=== PATIENT | male | born 1945 | race Caucasian/White ===

== ENCOUNTER 2018-10-18 02:39 | Observation (INO) | payer OTHER ==
[2018-10-18] MEDS ORDERED: METHYLPREDNISOLONE 125 MG INJ ONE ×2 (03:20→10:10)
[2018-10-18] MEDS ORDERED: IPRATROPIUM BROM 0.5MG/2.5ML ONE (03:20)
[2018-10-18] MEDS ORDERED: ALBUTEROL 2.5 MG/3 ML NEB SOL ONE (03:20)
[2018-10-18] MEDS ORDERED: NA CHLORIDE 0.9% 1,000 ML ONE (03:21)
[2018-10-18] MEDS ORDERED: HYDROCODONE/CHLORPHEN 5 ML/OSYR ONE (03:21)
[2018-10-18 03:51] LABS: Absolute Lymphocytes (CBC) 1.4 K/uL (0.7-4.9); Absolute Monocytes 1.2 K/uL (0.1-1.3); Absolute Neutrophil 5.4 K/uL (1.8-8.0); Basophils % 0.6 % (0-1.3); Hematocrit 34.1 % (39.6-49.0); Lymphocytes % 15.1 % (15.3-44.8); MCV 87.3 fL (80-100); MPV 7.3 fL (7.6-11.3); Monocytes % 12.4 % (3.3-12.3)
[2018-10-18 03:52] LABS: Arterial Blood Carboxyhemoglob 1.4 % (0-1.5); Blood Gas Oxyhemoglobin 96.6 % (94-97); Blood O2 Saturation 98.7 % (92-98.5)
[2018-10-18 04:09] LABS: Protime INR 1.1
[2018-10-18 04:49] LABS: ALT/SGPT 33 U/L (12-78); AST/SGOT 26 U/L (15-37); Albumin 3.5 g/dL (3.4-5.0); Alkaline Phosphatase 120 U/L (45-117); BUN Blood Urea Nitrogen 17 mg/dL (7-18); Bicarbonate 25 mmol/L (21-32); Bilirubin Direct 0.2 mg/dL (0-0.2); Bilirubin Total 0.5 mg/dL (0.2-1.0); Glucose Level 88 mg/dL (74-106); Magnesium 2.1 mg/dL (1.8-2.4); NT PRO-BNP 159 pg/mL (<125); Potassium 4.9 mmol/L (3.5-5.1); Protein, Total 7.5 g/dL (6.4-8.2); Sodium Level 128 mmol/L (136-145); Troponin (Emerg Dept Use Only) < 0.02 ng/mL (0.0-0.045)
--- NOTE | 2018-10-18 05:01 | EDPHYS ---
Physician Documentation [facility] Name: David Hernandez Age: 72 yrs Sex: Male : 1945 Arrival Date: 10/18/2018 Time: 02:43 Bed 26 Private MD: ED Physician Raphael Martin HPI: 10/18 03:04 This 72 yrs old Male presents to ER via EMS with unknown complaint. pkl 03:04 The patient has shortness of breath at rest. Onset: The symptoms/episode began/occurred pkl 2 week(s) ago, and became worse today. Associated signs and symptoms: Pertinent positives: productive cough. Historical: - Allergies: 03:03 No Known Allergies; rr5 - Home Meds: 03:03 albuterol sulfate 90 mcg/actuation Inhl HFAA 2 puffs every 6 hours [Active]; albuterol rr5 sulfate 0.83% Nebulizer HFAA 3 mL 4x daily prn [Active]; aspirin 81 mg Oral chew 1 tab once daily [Active]; atorvastatin 80 mg Oral tab [Active]; azelastine 13 7mcg/spray 200d nasal inh [Active]; budesonide 160/formoter 4.5mcg 120d inh [Active]; carvedilol 25 mg Oral tab 1 tab 2 times per day [Active]; cetirizine 10 mg oral tab 1 tab as needed [Active]; clopidogrel 75 mg Oral tab 1 tab once daily [Active]; docusate sodium 100 mg Oral cap 1 cap 2 times per day [Active]; [id number]/salmeterol 50 inh 1 puff 2x a day [Active]; guaifenesin 600 mg Oral Ta12 [Active]; latanoprost 0.005% oPH SOLN [Active]; levothyroxine 100 mcg tab 1 tab once daily [Active]; lisinopril 10 mg Oral tab 1 tab once daily [Active]; oxycodone 5 mg Oral cap 5 mg EVERY 4 HOURS NEEDED [Active]; roflumilast oral oral 500 mcg once daily [Active]; 03:06 tiotropium bromide inhalation inhalation 18 INH once daily [Active]; rr5 03:07 MUCOMYST [Active]; rr5 - PMHx: 03:06 Asthma; COPD; Hyperlipidemia; Hypertension; rr5 - PSHx: 03:06 Heart stents; Knee surgery; Hernia repair; rr5 - Immunization history:: Adult Immunizations up to date, Pneumococcal vaccine is up to date, Flu vaccine is up to date. - Social history:: Smoking status: Patient/guardian denies using tobacco, Patient/guardian denies using alcohol, street drugs. - Ebola Screening: : Patient negative for fever greater than or equal to 101.5 degrees Fahrenheit, and additional compatible Ebola Virus Disease symptoms Patient denies exposure to infectious person Patient denies travel to an Ebola-affected area in the 21 days before illness onset. ROS: 03:04 Eyes: Negative for injury, pain, redness, and discharge, ENT: Negative for injury, pkl pain, and discharge, Neck: Negative for injury, pain, and swelling, Cardiovascular: Negative for chest pain, palpitations, and edema. 03:04 Respiratory: Positive for cough, with clear sputum. 03:04 Abdomen/GI: Negative for abdominal pain, nausea, vomiting, and diarrhea. 03:04 Back: Negative for acute changes. 03:04 : Negative for urinary symptoms. 03:04 MS/extremity: Negative for acute changes. 03:04 Skin: Negative for rash. 03:04 Neuro: Negative for altered mental status, loss of consciousness. Exam: 03:04 Head/Face: Normocephalic, atraumatic. Eyes: Pupils equal round and reactive to light, pkl extra-ocular motions intact. Lids and lashes normal. Conjunctiva and sclera are non-icteric and not injected. Cornea within normal limits. Periorbital areas with no swelling, redness, or edema. ENT: Nares patent. No nasal discharge, no septal abnormalities noted. Tympanic membranes are normal and external auditory canals are clear. Oropharynx with no redness, swelling, or masses, exudates, or evidence of obstruction, uvula midline. Mucous membranes moist. Neck: Trachea midline, no thyromegaly or masses palpated, and no cervical lymphadenopathy. Supple, full range of motion without nuchal rigidity, or vertebral point tenderness. No Meningismus. Chest/axilla: Normal chest wall appearance and motion. Nontender with no deformity. No lesions are appreciated. Cardiovascular: Regular rate and rhythm with a normal S1 and S2. No gallops, murmurs, or rubs. Normal PMI, no JVD. No pulse deficits. 03:04 Respiratory: the patient does not display signs of respiratory distress, Respirations: labored breathing, that is mild, Breath sounds: bronchial sounds, that are moderate, are scattered. 03:04 Abdomen/GI: Bowel sounds: normal, Palpation: abdomen is soft and non-tender, in all quadrants. 03:04 Back: Exam negative for acute changes. 03:04 : Exam negative for acute changes. 03:04 Musculoskeletal/extremity: Exam is negative for acute changes. 03:04 Skin: Exam negative for rash. 03:04 Neuro: Orientation: is normal, Mentation: is normal, Cranial nerves: grossly normal, Motor: is normal. Vital Signs: 03:00 BP 119 / 76; Pulse 86; Resp 23; Temp 97.9; Pulse Ox 97% on R/A; Weight 99.79 kg; Height rr5 5 ft. 8 in. (172.72 cm); Pain 0/10; 05:00 BP 141 / 73; Pulse 74; Resp 20; Pulse Ox 96% on R/A; rr5 06:00 BP 125 / 89; Pulse 71; Resp 22; Pulse Ox 96% on 2 lpm NC; rr5 03:00 Body Mass Index 33.45 (99.79 kg, 172.72 cm) rr5 MDM: 02:44 Patient medically screened. pkl 04:58 Data reviewed: vital signs, nurses notes, lab test result(s), EKG, radiologic studies, pkl plain films. 10/18 03:02 Order name: Basic Metabolic Panel; Complete Time: 05:00 [facility] 10/18 03:02 Order name: CBC with Diff; Complete Time: 04:38 [facility] 10/18 03:02 Order name: LFT's; Complete Time: 05:00 [facility] 10/18 03:02 Order name: Magnesium; Complete Time: 05:00 [facility] 10/18 03:02 Order name: NT PRO-BNP; Complete Time: 05:00 [facility] 10/18 03:02 Order name: PT-INR; Complete Time: 04:38 [facility] 10/18 03:02 Order name: Troponin (emerg Dept Use Only); Complete Time: 05:00 [facility] 10/18 03:02 Order name: XRAY Chest (1 view) [facility] 10/18 03:02 Order name: ABG; Complete Time: 04:38 [facility] 10/18 03:27 Order name: D-Dimer; Complete Time: 04:38 EDMS 10/18 03:02 Order name: EKG; Complete Time: 03:08 pkl 10/18 03:02 Order name: Cardiac monitoring; Complete Time: 03:28 pkl 10/18 03:02 Order name: EKG - Nurse/Tech; Complete Time: 04:23 pkl 10/18 03:02 Order name: IV Saline Lock; Complete Time: 03:29 pkl 10/18 03:02 Order name: Labs collected and sent; Complete Time: 03: pkl 10/18 03:02 Order name: O2 Per Protocol; Complete Time: 03: pkl 10/18 03:02 Order name: O2 Sat Monitoring; Complete Time: : pkl Administered Medications: 03:15 Drug: Tussionex Pennkinetic ER 5 ml Route: PO; tl2 05:10 Follow up: Response: Marked relief of symptoms; Wheezing diminished rr5 03:15 Drug: Albuterol - atroVENT (3:1) (2.5 mg - 0.5 mg) 3 ml Route: Nebulizer; tl2 05:11 Follow up: Response: Wheezing diminished rr5 03:16 Drug: NS 0.9% 1000 ml Route: IV; Rate: 125 ml/hr; Site: right antecubital; tl2 07:13 Follow up: IV Status: Infusion continued upon admission rr5 03:16 Drug: SOLU-Medrol 125 mg Route: IVP; Site: right antecubital; tl2 05:10 Follow up: Response: Marked relief of symptoms rr5 05:10 Drug: Lovenox 90 mg Route: Sub-Q; Site: right lower abdomen; rr5 07:12 Follow up: Response: No adverse reaction rr5 Disposition: 10/18/18 05:00 Hospitalization ordered by Steve Panda for Observation. Preliminary diagnosis is Acute dyspnea. COPD exacerbation. R/O Pulmonary embolism. - Bed requested for Telemetry/MedSurg (observation). - Status is Observation. aj1 - Condition is Stable. - Problem is new. - Symptoms are unchanged. UTI on Admission? No Signatures: Dispatcher [employer] EDMS Orin Peter RN RN aj1 Mercedes Guerrero RN RN Kenna Tena RN RN dw Raphael Martin MD MD pkTiara Rivera, RN RN tl2 Maxwell Oscar, RN RN rr5 Corrections: (The following items were deleted from the chart) 03: 03:08 D-DIMER+COAG.LAB.BRZ ordered. EDMS EDMS 05:26 05:00 Hospitalization Ordered by Steve Panda MD for Observation. Preliminary mw diagnosis is Acute dyspnea. COPD exacerbation. R/O Pulmonary embolism. Bed requested for Telemetry/MedSurg (observation). Status is Observation. Condition is Stable. Problem is new. Symptoms are unchanged. UTI on Admission? No. pkl 09:58 05:26 10/18/2018 05:00 Hospitalization Ordered by tSeve Panda MD for Observation. dw Preliminary diagnosis is Acute dyspnea. COPD exacerbation. R/O Pulmonary embolism. Bed requested for [facility] ER HOLD. Status is Observation. Condition is Stable. Problem is new. Symptoms are unchanged. UTI on Admission? No. mw 11:38 09:58 10/18/2018 05:00 Hospitalization Ordered by Steve Panda MD for Observation. aj1 Preliminary diagnosis is Acute dyspnea. COPD exacerbation. R/O Pulmonary embolism. Bed requested for Telemetry/MedSurg (observation). Status is Observation. Condition is Stable. Problem is new. Symptoms are unchanged. UTI on Admission? No. dw
--- NOTE | 2018-10-18 05:01 | ER ---
Nurse's Notes [facility] Name: David Hernandez Age: 72 yrs Sex: Male : 1945 Arrival Date: 10/18/2018 Time: 02:43 Bed 26 Private MD: Diagnosis: Acute dyspnea. COPD exacerbation. R/O Pulmonary embolism Presentation: 10/18 02:40 Presenting complaint: EMS states: consistent coughing spasm since 10/06/18 white thick rr5 sputum with SOB and get worst today. first dose nebulization at 2200 10/17/18, second dose given by EMS 0216H atrovent and albuterol. 02:40 Transition of care: patient was not received from another setting of care. Onset of rr5 symptoms was October 06, 2018. Risk Assessment: Do you want to hurt yourself or someone else? Patient reports no desire to harm self or others. Initial Sepsis Screen: Does the patient meet any 2 criteria? No. Patient's initial sepsis screen is negative. Does the patient have a suspected source of infection? No. Patient's initial sepsis screen is negative. Care prior to arrival: Medication(s) given: Albuterol Neb x 1, Atrovent Neb. 02:40 Method Of Arrival: EMS: [facility] rr5 02:40 Acuity: EROS 3 rr5 Historical: - Allergies: 03:03 No Known Allergies; rr5 - Home Meds: 03:03 albuterol sulfate 90 mcg/actuation Inhl HFAA 2 puffs every 6 hours [Active]; albuterol rr5 sulfate 0.83% Nebulizer HFAA 3 mL 4x daily prn [Active]; aspirin 81 mg Oral chew 1 tab once daily [Active]; atorvastatin 80 mg Oral tab [Active]; azelastine 13 7mcg/spray 200d nasal inh [Active]; budesonide 160/formoter 4.5mcg 120d inh [Active]; carvedilol 25 mg Oral tab 1 tab 2 times per day [Active]; cetirizine 10 mg oral tab 1 tab as needed [Active]; clopidogrel 75 mg Oral tab 1 tab once daily [Active]; docusate sodium 100 mg Oral cap 1 cap 2 times per day [Active]; /salmeterol 50 inh 1 puff 2x a day [Active]; guaifenesin 600 mg Oral Ta12 [Active]; latanoprost 0.005% oPH SOLN [Active]; levothyroxine 100 mcg tab 1 tab once daily [Active]; lisinopril 10 mg Oral tab 1 tab once daily [Active]; oxycodone 5 mg Oral cap 5 mg EVERY 4 HOURS NEEDED [Active]; roflumilast oral oral 500 mcg once daily [Active]; 03:06 tiotropium bromide inhalation inhalation 18 INH once daily [Active]; rr5 03:07 MUCOMYST [Active]; rr5 - PMHx: 03:06 Asthma; COPD; Hyperlipidemia; Hypertension; rr5 - PSHx: 03:06 Heart stents; Knee surgery; Hernia repair; rr5 - Immunization history:: Adult Immunizations up to date, Pneumococcal vaccine is up to date, Flu vaccine is up to date. - Social history:: Smoking status: Patient/guardian denies using tobacco, Patient/guardian denies using alcohol, street drugs. - Ebola Screening: : Patient negative for fever greater than or equal to 101.5 degrees Fahrenheit, and additional compatible Ebola Virus Disease symptoms Patient denies exposure to infectious person Patient denies travel to an Ebola-affected area in the 21 days before illness onset. Screenin:25 Abuse screen: Denies threats or abuse. Denies injuries from another. Nutritional rr5 screening: No deficits noted. Nutritional screening:. Tuberculosis screening: No symptoms or risk factors identified. Fall Risk None identified. Assessment: 03:30 General: Appears in no apparent distress. uncomfortable, Behavior is calm, cooperative, rr5 appropriate for age. Pain: Denies pain. Neuro: Level of Consciousness is awake, alert, obeys commands, Oriented to person, place, time, situation. Cardiovascular: Denies chest pain, Capillary refill < 3 seconds Patient's skin is warm and dry. Respiratory: Airway is patent Respiratory effort is even, Respiratory pattern is symmetrical, tachypnea Breath sounds with wheezes bilaterally. GI: No signs and/or symptoms were reported involving the gastrointestinal system. : No signs and/or symptoms were reported regarding the genitourinary system. EENT: No signs and/or symptoms were reported regarding the EENT system. Derm: No signs and/or symptoms reported regarding the dermatologic system. Musculoskeletal: No signs and/or symptoms reported regarding the musculoskeletal system. 04:26 Reassessment: Patient appears in no apparent distress at this time. Patient states rr5 feeling better. Patient states symptoms have improved. 05:03 Reassessment: Patient appears in no apparent distress at this time. audible wheezes. rr5 patient verbalized he feels better. Patient states feeling better. Patient states symptoms have improved. Vital Signs: 03:00 BP 119 / 76; Pulse 86; Resp 23; Temp 97.9; Pulse Ox 97% on R/A; Weight 99.79 kg; Height rr5 5 ft. 8 in. (172.72 cm); Pain 0/10; 05:00 BP 141 / 73; Pulse 74; Resp 20; Pulse Ox 96% on R/A; rr5 06:00 BP 125 / 89; Pulse 71; Resp 22; Pulse Ox 96% on 2 lpm NC; rr5 03:00 Body Mass Index 33.45 (99.79 kg, 172.72 cm) rr5 ED Course: 02:43 Patient arrived in ED. ds1 02:43 Raphael Martin MD is Attending Physician. pkl 02:44 Maxwell Oscar RN is Primary Nurse. rr5 02:48 Inserted saline lock: 20 gauge in right antecubital area, using aseptic technique. tl2 Blood collected. 02:49 Triage completed. rr5 03:22 X-ray completed. Portable x-ray completed in exam room. Patient tolerated procedure kw well. 03:23 XRAY Chest (1 view) In Process Unspecified. EDMS 03:30 Arm band placed on left wrist. rr5 03:30 Patient has correct armband on for positive identification. Bed in low position. Call rr5 light in reach. Side rails up X 1. 04:12 Notified ED physician of a critical lab result(s). D-Dimer-6,[id number]. lp1 04:59 Steve Panda MD is Hospitalizing Provider. pkl 06:13 No provider procedures requiring assistance completed. Patient admitted, IV remains in rr5 place. intact. Administered Medications: 03:15 Drug: Tussionex Pennkinetic ER 5 ml Route: PO; tl2 05:10 Follow up: Response: Marked relief of symptoms; Wheezing diminished rr5 03:15 Drug: Albuterol - atroVENT (3:1) (2.5 mg - 0.5 mg) 3 ml Route: Nebulizer; tl2 05:11 Follow up: Response: Wheezing diminished rr5 03:16 Drug: NS 0.9% 1000 ml Route: IV; Rate: 125 ml/hr; Site: right antecubital; tl2 07:13 Follow up: IV Status: Infusion continued upon admission rr5 03:16 Drug: SOLU-Medrol 125 mg Route: IVP; Site: right antecubital; tl2 05:10 Follow up: Response: Marked relief of symptoms rr5 05:10 Drug: Lovenox 90 mg Route: Sub-Q; Site: right lower abdomen; rr5 07:12 Follow up: Response: No adverse reaction rr5 Outcome: 05:00 Decision to Hospitalize by Provider. pkl 06:14 Admitted to ER Hold. Please see [facility] for further documentation. darrion 06:14 Condition: stable 06:14 Instructed on the need for admit. 11:38 Patient left the ED. aj1 Signatures: Dispatcher [employer] EDOrin Lopez RN RN aj1 Raphael Martin MD MD pkl Soila Nleson ds1 Shahana Valadez RN RN bb Jeanette Enriquez Laura, RN RN lp1 Tiara Stewart RN RN tl2 Maxwell Oscar RN RN rr5
[2018-10-18] MEDS ORDERED: ENOXAPARIN 100 MG/ML SYR SQ ONE (05:10)
[2018-10-18] MEDS ORDERED: METHYLPREDNISOLONE 40 MG INJ IV ONE (06:24)
[2018-10-18] MEDS: LEVOTHYROXINE SOD 0.1 MG TAB PO SCH (06:30)
[2018-10-18] MEDS ORDERED: ALBUTEROL 2.5 MG/3 ML NEB SOL NEB PRN (07:26)
--- NOTE | 2018-10-18 07:32 | EKG ---
Test Date: 2018-10-18 Test Time: 03:58:13 Equipment Maintenance Superintendent: RR MEASUREMENT RESULTS: Intervals: Rate: 75 WI: 156 QRSD: 86 QT: 410 QTc: 457 [place]: P: 59 WI: 156 QRS: 66 T: 53 INTERPRETIVE STATEMENTS: Normal sinus rhythm Normal ECG Compared to ECG 03/12/2017 22:23:01 No significant changes Electronically Signed On 10-18-18 07:31:53 HAM ROLLING MACHINE OPERATOR by Manuel Thompson
[2018-10-18] MEDS ORDERED: ALBUTEROL 2.5 MG/3 ML NEB SOL NEB SCH (08:00)
[2018-10-18] MEDS: IPRATROPIUM BROM 0.5MG/2.5ML NEB SCH ×3 (08:00→20:21)
--- NOTE | 2018-10-18 08:54 | RAD REPORT ---
EXAM DESCRIPTION: RAD - Chest Single View - 10/18/2018 3:24 am CLINICAL HISTORY: Cough;COPD Chest pain. COMPARISON: Chest Pa And Lat (2 Views) dated 03/15/2017; Chest Single View dated 03/12/2017; Chest Sin gle View dated 01/09/2017; CHEST PA AND LAT 2 VIEW dated 12/31/2015 FINDINGS: Portable technique limits examination quality. The lungs are grossly clear. The heart is normal in size. No displaced fractures. IMPRESSION: No acute intrathoracic process suspected.
[2018-10-18] MEDS: CLOPIDOGREL 75 MG TABLET PO SCH (09:00)
[2018-10-18] MEDS: ASPIRIN EC 81 MG TAB PO SCH (09:00)
[2018-10-18] MEDS: TIOTROPIUM 5 SPRAYS/INHALER IH SCH (09:00)
[2018-10-18] MEDS: LISINOPRIL 10 MG TAB PO SCH (09:00)
[2018-10-18] MEDS: CARVEDILOL 12.5 MG TAB PO SCH ×2 (09:00→20:50)
[2018-10-18] MEDS: TERBINAFINE HCL 250 MG TAB PO SCH (09:00)
[2018-10-18] MEDS: ATORVASTATIN 40 MG TAB PO SCH (09:00)
[2018-10-18] MEDS: ROFLUMILAST 500 MCG TABLET PO SCH (09:00)
--- NOTE | 2018-10-18 09:16 | P.HP ---
Certification for Inpatient Patient admitted to: Inpatient With expected LOS: >2 Midnights Patient will require the following post-hospital care: None Practitioner: I am a practitioner with admitting privileges, knowledge of patient current condition, hospital course, and medical plan of care. Services: Services provided to patient in accordance with Admission requirements found in Title 42 Section 412.3 of the Code of Federal Regulations Patient History Date of Service: 10/18/18 Reason for admission: Shortness of breath History of Present Illness: Patient is a 9-year-old gentleman came to the hospital with difficulty breathing. Patient was hypoxic and could not catch his breath. Whenever he would ambulate even a few steps he would lose his breath. He decided to come into the hospital for further evaluation. In the emergency room patient had lab testing and x-rays. Patient had chronic lung changes on the x-ray. He most likely has an acute COPD exacerbation. Patient's D-dimer was also significantly elevated. Patient recently had knee surgery. Concern for pulmonary embolism. Decision was made at that time to go ahead and admit the patient to the hospital. Will go ahead and schedule CT with PE protocol or V/Q scan for the morning Allergies No Known Allergies Allergy (Verified 03/13/17 02:37) Home Medications: Aspirin [Aspirin EC 81 MG] 81 mg PO DAILY 03/13/17 Atorvastatin Calcium 80 mg PO DAILY 03/13/17 Azelastine HCl [Astepro] 1 spray NS BID 03/13/17 Budesonide/Formoterol Fumarate [Symbicort 160-4.5 Mcg Inhaler] 1 puff IH BID Carvedilol 12.5 mg PO BID 03/13/17 Cetirizine HCl [Zyrtec] 10 mg PO BEDTIME 03/13/17 Clopidogrel Bisulfate [Plavix] 75 mg PO DAILY 03/13/17 Fluticasone Propionate [Flonase Allergy Relief] 1 spray NS BID 03/13/17 Latanoprost Ophth [Xalatan 0.005%*] 1 gtt EACH EYE BEDTIME 03/13/17 Levothyroxine [Synthroid*] 100 mcg PO DAILY 03/13/17 Lisinopril 5 mg PO DAILY 03/13/17 Roflumilast [Daliresp*] 500 mcg PO DAILY 03/13/17 Tiotropium [place] [Spiriva] 1 spray IH DAILY 03/13/17 Albuterol Sulfate [Albuterol Sulfate 0.083% Neb Soln] 2.5 mg IH QID PRN Albuterol Sulfate [Proair Respiclick] 90 mcg IH Q6HP PRN 10/18/18 Docusate Sodium 100 mg PO BID 10/18/18 Fluticasone/Salmeterol [Advair 250-50 Diskus] 1 each IH BID 10/18/18 Oxycodone HCl [Roxicodone] 5 mg PO Q4HP PRN 10/18/18 - Past Medical/Surgical History Diabetic: No -: COPD -: Asthma -: HTN -: Hyperlipidemia -: Hernia repair -: corporal tunnel -: eric cataract surgery -: Stents - Family History Mother Medical History: Lung disease, Cancer Notes: skin cancer and respiratory issues (was a long time smoker per pt) Sister Medical History: Cancer Notes: melanoma - Social History Alcohol use: No CD- Drugs: No Caffeine use: Yes Review of Systems 10-point ROS is otherwise unremarkable Physical Examination - Vital Signs Temperature: 98 F Blood Pressure: 144/103 Pulse: 96 Respirations: 18 Pulse Ox (%): 97 - Physical Exam General: Alert, In no apparent distress, Oriented x3 HEENT: Atraumatic, PERRLA, Mucous membr. moist/pink, EOMI, Sclerae nonicteric Neck: Supple, 2+ carotid pulse no bruit, No LAD, Without JVD or thyroid abnormality Respiratory: Expiratory wheezes Cardiovascular: Regular rate/rhythm, Normal S1 S2, No murmurs Gastrointestinal: Normal bowel sounds, Soft and benign, Non-distended, No tenderness Musculoskeletal: No clubbing, No swelling, No tenderness Integumentary: No rashes Neurological: Normal gait, Normal speech, Normal strength at 5/5 x4 extr, Normal tone, Sensation intact, Cranial nerves 3-12 intact, Normal affect Lymphatics: No axilla or inguinal lymphadenopathy - Studies Laboratory Data (last 24 hrs) 10/18/18 03:10: PT 13.0 H, INR 1.10 10/18/18 03:10: WBC 9.4, Hgb 12.1 L, Hct 34.1 L, Plt Count 735 H 10/18/18 03:10: Sodium 128 L, Potassium 4.9, BUN 17, Creatinine 1.80 H, Glucose 88, Magnesium 2.1, Total Bilirubin 0.5, AST 26, ALT 33, Alkaline Phosphatase 120 H Assessment & Plan - Problems (Diagnosis) (1) COPD exacerbation Onset Date: 01/16/15 Current Visit: No Status: Acute (2) Elevated d-dimer Current Visit: Yes Status: Acute (3) Hypoxia Onset Date: 12/11/15 Current Visit: No Status: Acute (4) Hypertension Current Visit: No Status: Chronic - Plan Plan: 1. Continue with albuterol and Atrovent nebs 2. Continue with IV steroids 3. Antibiotics 4. CT/PE prototcol 5. Room air O2 sats 6. Repeat chest x-ray in the morning 7. GI and DVT prophylaxis Discharge Plan: Home Plan to discharge in: Greater than 2 days - Advance Directives Does patient have a Living Will: No Does patient have a Durable POA for Healthcare: Yes - Code Status/Comfort Care Code Status Assessed: Yes Code Status: Full Code Critical Care: No Time Spent Managing PTS Care (In Minutes): 50
[2018-10-18] MEDS ORDERED: ALBUTEROL 2.5 MG/3 ML NEB SOL IH PRN (09:18)
[2018-10-18] MEDS ORDERED: LISINOPRIL 10 MG TAB ONE (10:11)
[2018-10-18] MEDS ORDERED: CARVEDILOL 6.25 MG TAB ONE (10:11)
[2018-10-18] MEDS ORDERED: CLOPIDOGREL 75 MG TABLET ONE (10:11)
[2018-10-18] MEDS ORDERED: ASPIRIN EC 81 MG TAB PO ONE (10:11)
[2018-10-18] MEDS ORDERED: ENOXAPARIN 40 MG/0.4 ML SQ ONE (10:11)
[2018-10-18 12:21] VITALS: BMI 34.4
[2018-10-18 12:38] LABS: Absolute Lymphocytes (CBC) 1.1 K/uL (0.7-4.9); Absolute Monocytes 0.1 K/uL (0.1-1.3); Absolute Neutrophil 5.9 K/uL (1.8-8.0); Basophils % 0.4 % (0-1.3); Eosinophils % 0.2 % (0-4.4); Lymphocytes % 14.9 % (15.3-44.8); MCH 29.4 pg (27.0-35.0); MCV 87.2 fL (80-100); MPV 7.3 fL (7.6-11.3); Monocytes % 1.6 % (3.3-12.3); RBC Red Blood Cell Count 4.24 M/uL (4.33-5.43)
[2018-10-18] MEDS: METHYLPREDNISOLONE 125 MG INJ IV SCH ×2 (12:47→17:43)
[2018-10-18 13:10] LABS: Magnesium 2.3 mg/dL (1.8-2.4); Phosphorus 3.8 mg/dL (2.5-4.9); Potassium 5.2 mmol/L (3.5-5.1)
[2018-10-18] MEDS: ARFORMOTEROL TARTRATE 15 MCG/2 ML VIAL.NEB NEB SCH ×2 (13:13→20:21)
[2018-10-18 14:06] LABS: Blood Morphology Comment NOT SEEN (NOT SEEN); Platelet Estimate INCR; Urine White Blood Cell Casts OK
[2018-10-18] MEDS: OXYCODONE HCL 5 MG TAB PO PRN (16:15)
[2018-10-18] MEDS: ENOXAPARIN 40 MG/0.4 ML SQ SCH (17:43)
[2018-10-18] MEDS: BENZONATATE 100 MG CAP PO PRN (17:43)
[2018-10-18] MEDS: NA CHLORIDE 0.9% 1,000 ML IV SCH (20:47)
[2018-10-18] MEDS: DULERA 100/5 (MOMETASONE/FORMOTEROL) INHALER IH SCH (20:47)
[2018-10-18] MEDS: AZELASTINE NASAL SPRAY 30 ML NAS SCH (20:47)
[2018-10-18] MEDS: predniSONE 20 MG TAB PO SCH (20:49)
[2018-10-18] MEDS: DOCUSATE NA 100 MG CAP PO SCH (20:49)
[2018-10-18] MEDS ORDERED: MONTELUKAST 10 MG TAB PO SCH (21:00)
[2018-10-18] MEDS ORDERED: BENZONATATE 100 MG CAP PO SCH (21:00)
[2018-10-18] MEDS ORDERED: CETIRIZINE HCL 5 MG TABLET PO SCH (21:00)
[2018-10-18 21:52] VITALS: O2SAT 98
[2018-10-19] MEDS: OXYCODONE HCL 5 MG TAB PO PRN (02:04)
[2018-10-19] MEDS: BENZONATATE 100 MG CAP PO PRN (02:05)
[2018-10-19] MEDS: IPRATROPIUM BROM 0.5MG/2.5ML NEB SCH ×3 (02:08→13:10)
[2018-10-19] MEDS: LEVOTHYROXINE SOD 0.1 MG TAB PO SCH (05:27)
[2018-10-19 05:38] LABS: Absolute Lymphocytes (CBC) 1.8 K/uL (0.7-4.9); Absolute Monocytes 0.7 K/uL (0.1-1.3); Absolute Neutrophil 10.5 K/uL (1.8-8.0); Basophils % 0.2 % (0-1.3); Eosinophils % 0.1 % (0-4.4); Hematocrit 30.3 % (39.6-49.0); Lymphocytes % 13.9 % (15.3-44.8); MCH 29.8 pg (27.0-35.0); MCV 87.4 fL (80-100); MPV 7.1 fL (7.6-11.3); Monocytes % 5.7 % (3.3-12.3); RBC Red Blood Cell Count 3.47 M/uL (4.33-5.43)
[2018-10-19 06:00] LABS: Magnesium 2.1 mg/dL (1.8-2.4); Potassium 4.8 mmol/L (3.5-5.1)
[2018-10-19] MEDS: ARFORMOTEROL TARTRATE 15 MCG/2 ML VIAL.NEB NEB SCH (07:35)
[2018-10-19] MEDS: DOCUSATE NA 100 MG CAP PO SCH (09:00)
--- NOTE | 2018-10-19 09:02 | RAD REPORT ---
EXAM DESCRIPTION: NM - Vent Perfusion VQ Scan - 10/19/2018 7:30 am CLINICAL HISTORY: Shortness of breath elevated D-dimer COMPARISON: October 18 chest x-ray TECHNIQUE: 20.1 Mci [id number] was administered by inhalation. First breath, equilibrium, and washout images obtained 7.5 millicuries Technetium-99 MAA was administered intravenously. Anterior, posterior, lateral and o blique views of the lungs were taken. FINDINGS: The lungs demonstrate relatively homogeneous radiotracer activity on ventilation and perfu edvin sequences. No mismatched segmental or lobar perfusion defects are seen. IMPRESSION: No evidence of a pulmonary embolus
[2018-10-19] MEDS: TIOTROPIUM 5 SPRAYS/INHALER IH SCH (10:07)
[2018-10-19] MEDS: AZELASTINE NASAL SPRAY 30 ML NAS SCH (10:07)
[2018-10-19] MEDS: DULERA 100/5 (MOMETASONE/FORMOTEROL) INHALER IH SCH (10:07)
[2018-10-19] MEDS: NA CHLORIDE 0.9% 1,000 ML IV SCH (10:09)
[2018-10-19] MEDS: TERBINAFINE HCL 250 MG TAB PO SCH (10:12)
[2018-10-19] MEDS: predniSONE 20 MG TAB PO SCH (10:12)
[2018-10-19] MEDS: LISINOPRIL 10 MG TAB PO SCH (10:13)
[2018-10-19] MEDS: CARVEDILOL 12.5 MG TAB PO SCH (10:13)
[2018-10-19] MEDS: CLOPIDOGREL 75 MG TABLET PO SCH (10:13)
[2018-10-19] MEDS: ASPIRIN EC 81 MG TAB PO SCH (10:13)
[2018-10-19] MEDS: ROFLUMILAST 500 MCG TABLET PO SCH (10:14)
[2018-10-19] MEDS: ATORVASTATIN 40 MG TAB PO SCH (10:17)
--- NOTE | 2018-10-19 11:32 | RAD REPORT ---
EXAM DESCRIPTION: US - Extrem Venous W Compress Jamal - 10/19/2018 11:14 am CLINICAL HISTORY: Left leg pain and swelling, left total knee surgery September 24 COMPARISON: None. TECHNIQUE: Real-time sonographic evaluation of the left lower extremity deep venous system was perfo rmed. FINDINGS: Normal compressibility, flow augmentation, phasic flow and spontaneous flow are identified in the left lower extremity common femoral, superficial femoral, popliteal and posterior tibial vein s. No intraluminal filling defects seen. Large complex mostly hypoechoic collection is present surrounding the knee. Margins are difficult to fully defined by CT imaging. This is most likely old hematoma related to the recent knee surgery. No specific finding to elevate likelihood of abscess. IMPRESSION: No DVT in the left lower extremity. Large complex collection around the knee is probably old hematoma. It is difficult to fully incorpora te this finding on to sonographic imaging. Followup CT imaging could be performed if there are clinic al or laboratory findings that might suggest soft tissue infection.
--- NOTE | 2018-10-19 11:41 | RAD REPORT ---
EXAM DESCRIPTION: RAD - Chest Pa And Lat (2 Views) - 10/19/2018 11:24 am CLINICAL HISTORY: COPD, shortness of breath COMPARISON: October 18 ; February 2017 TECHNIQUE: PA and lateral views of the chest were obtained. FINDINGS: The lungs are fibrotic. No peripheral mass or consolidation. Lung markings are similar or to the October 18 study. Trachea is midline. Heart size is normal and central vasculature is within normal limits. No pleural effusion or pneumothorax seen. No acute bony finding noted. No aortic a bnormality. IMPRESSION: Chronic interstitial lung disease similar to comparison. No new or progressive finding.
[2018-10-19 15:16] VITALS: BP 131/76; TEMP 98.8
--- NOTE | 2018-10-19 15:48 | P.DS ---
Admission Date: 10/18/18 Discharge Date: 10/19/18 Primary Care Provider: [facility] Disposition: ROUTINE DISCHARGE Discharge Condition: GOOD Reason for Admission: Shortness of breath Consultations: None Procedures: Chest x-ray: COMPARISON: October 18 ; February 2017 TECHNIQUE: PA and lateral views of the chest were obtained. FINDINGS: The lungs are fibrotic. No peripheral mass or consolidation. Lung markings are similar or to the October 18 study. Trachea is midline. Heart size is normal and central vasculature is within normal limits. No pleural effusion or pneumothorax seen. No acute bony finding noted. No aortic abnormality. IMPRESSION: Chronic interstitial lung disease similar to comparison. No new or progressive finding Venous Doppler lower extremity: COMPARISON: None. TECHNIQUE: Real-time sonographic evaluation of the left lower extremity deep venous system was performed. FINDINGS: Normal compressibility, flow augmentation, phasic flow and spontaneous flow are identified in the left lower extremity common femoral, superficial femoral, popliteal and posterior tibial veins. No intraluminal filling defects seen. Large complex mostly hypoechoic collection is present surrounding the knee. Margins are difficult to fully defined by CT imaging. This is most likely old hematoma related to the recent knee surgery. No specific finding to elevate likelihood of abscess. IMPRESSION: No DVT in the left lower extremity. Large complex collection around the knee is probably old hematoma. Patient with history of left knee replacement. ADDENDUM The right common femoral, superficial femoral, popliteal and posterior tibial veins are clear of thrombus. There is good compression and augmentation. No right-side deep venous thrombosis. V/Q scan: COMPARISON: October 18 chest x-ray TECHNIQUE: 20.1 Mci [id number] was administered by inhalation. First breath, equilibrium, and washout images obtained 7.5 millicuries Technetium-99 MAA was administered intravenously. Anterior, posterior, lateral and oblique views of the lungs were taken. FINDINGS: The lungs demonstrate relatively homogeneous radiotracer activity on ventilation and perfusion sequences. No mismatched segmental or lobar perfusion defects are seen. IMPRESSION: No evidence of a pulmonary embolus Echocardiogram: Done, results pending at discharge. Medical problem list: Dyspnea secondary to COPD exacerbation complicated with acute sinusitis likely with underlying obstructive sleep apnea currently with home oxygen, COPD likely advanced Hypertension Hyperlipidemia Hypothyroidism CAD GERD Renal insufficiency likely underlying stage II chronic renal disease Chronic pain Obesity, BMI 34 Brief History of Present Illness: 72-year-old male presented emergency room with increasing shortness of breath and cough. Patient seen and evaluated the emergency room. Patient with underlying chronic COPD. He uses home oxygen as needed. Patient with multiple medications. Patient found to have COPD exacerbation. Patient admitted for further treatment. Hospital Course: Patient presented with dyspnea secondary to COPD exacerbation complicated with acute sinusitis likely with underlying obstructive sleep apnea. Patient currently uses home oxygen as needed. Patient with advanced COPD. Patient did well in the course of his stay. Patient had V/Q scan which showed no pulmonary embolism. Chest x-ray showed no pneumonia. Echocardiogram done. Results pending at discharge. At discharge she is without any significant shortness of breath. Patient treated for sinusitis and COPD exacerbation. Patient has done well. Patient without the need for oxygen at discharge. Patient ambulating well. At discharge patient will continue with Augmentin 500 mg 1 pill twice daily for 7 days for his sinusitis. Patient will also continue with prednisone 20 mg 1 pill twice daily for 5 days then 1 pill once daily for 5 days for his COPD exacerbation. Patient will continue with his COPD medication including- albuterol nebs 1 unit dose 4 times a day as needed for shortness of breath, Symbicort 160 mcg 2 puffs twice daily, Spiriva 18 mcg 1 puff daily, and Daliresp 5 mcg one pill daily. Recommendations for the patient follow up with pulmonology as an outpatient to further monitor his COPD and continue his care. Patient may continue with home oxygen to maintain sats above 90%. Patient will be given a limited supply of cough medication-Tessalon 100 mg 1 pill 3 times a day as needed for cough. Recommendation is for the patient to follow up with ENT to further evaluate his sinusitis. Patient may continue with Flonase 1 spray per nostril twice daily, Zyrtec 10 mg daily. Astepro has been discontinued. Patient likely with underlying obstructive sleep apnea. Recommendation is for the patient to have a sleep study done as an outpatient to evaluate for sleep apnea. This can be done with ENT or pulmonology. Patient with hypertension. Patient will continue with his medications carvedilol 12.5 mg 1 pill twice daily and lisinopril 5 mg daily. Recommendation is to maintain blood pressures less 150/80. Further adjustment can be done by his PCP. Patient with hyperlipidemia. Patient will continue with his medication Lipitor 80 mg daily. Patient with CAD. Patient will continue with aspirin 81 mg daily and Plavix 75 mg daily. Patient will need to follow up with his pick remover as directed. Patient with renal sufficiency. This remained stable during his stay. Patient likely with underlying stage II chronic renal disease. Recommendation to recheck lab-BMP in 1 week. Recommendation is for the patient to follow up with nephrology as an outpatient to further monitor and address. Patient likely with underlying GERD. Recommendation is for the patient to start Protonix 40 mg 1 pill once daily. Patient may benefit with GI evaluation as an outpatient. Patient with hypothyroidism. Patient will continue with Levoxyl 100 mcg daily. Patient with chronic pain. Patient will continue with his oxycodone. Recommendation is for the patient follow up with pain management to further monitor and address. Patient has recent left knee replacement. Venous Doppler lower extremity shows no DVT. Patient will continue with aspirin daily. Patient will need a follow up with orthopedics to further monitor and address. Fall precautions in place. Patient with obesity. BMI 34. Lifestyle modification education will be provided. Vital Signs/Physical Exam: Temp Pulse Resp BP Pulse Ox 98.8 F 71 20 131/76 95 10/19/18 12:00 10/19/18 12:00 10/19/18 12:00 10/19/18 12:00 10/19/18 12:00 General: Alert, In no apparent distress, Oriented x3, Cooperative HEENT: Atraumatic, Normocephalic, Other (Mild nasal congestion) Neck: Supple, No Thyromegaly Respiratory: Expiratory wheezes (Wheezing to the left side otherwise good air movement) Cardiovascular: Normal pulses, Regular rate/rhythm Gastrointestinal: Normal bowel sounds, Soft and benign, Non-distended, No tenderness, No masses, No rebound, No guarding Musculoskeletal: No erythema, No tenderness, No warmth Integumentary: No tenderness/swelling, No erythema, No warmth, No cyanosis Neurological: Normal speech, Normal strength at 5/5 x4 extr, Normal tone, Normal affect Laboratory Data at Discharge: WBC 13.1 K/uL (4.3-10.9) H D 10/19/18 05:16 Hgb 10.3 g/dL (13.6-17.9) L 10/19/18 05:16 Hct 30.3 % (39.6-49.0) L D 10/19/18 05:16 Plt Count 657 K/uL (152-406) H 10/19/18 05:16 PT 13.0 SECONDS (9.5-12.5) H 10/18/18 03:10 INR 1.10 10/18/18 03:10 Sodium 132 mmol/L (136-145) L 10/19/18 05:16 Potassium 4.8 mmol/L (3.5-5.1) 10/19/18 05:16 BUN 26 mg/dL (7-18) H 10/19/18 05:16 Creatinine 1.50 mg/dL (0.55-1.3) H 10/19/18 05:16 Glucose 133 mg/dL (74-106) H 10/19/18 05:16 Phosphorus 3.8 mg/dL (2.5-4.9) 10/18/18 12:14 Magnesium 2.1 mg/dL (1.8-2.4) 10/19/18 05:16 Total Bilirubin 0.5 mg/dL (0.2-1.0) 10/18/18 03:10 AST 26 U/L (15-37) 10/18/18 03:10 ALT 33 U/L (12-78) 10/18/18 03:10 Alkaline Phosphatase 120 U/L (45-117) H 10/18/18 03:10 Home Medications: Aspirin [Aspirin EC 81 MG] 81 mg PO DAILY 03/13/17 Atorvastatin Calcium 80 mg PO DAILY 03/13/17 Carvedilol 12.5 mg PO BID 03/13/17 Cetirizine HCl [Zyrtec] 10 mg PO BEDTIME 03/13/17 Clopidogrel Bisulfate [Plavix] 75 mg PO DAILY 03/13/17 Latanoprost Ophth [Xalatan 0.005%*] 1 gtt EACH EYE BEDTIME 03/13/17 Levothyroxine [Synthroid*] 100 mcg PO DAILY 03/13/17 Lisinopril 5 mg PO DAILY 03/13/17 Roflumilast [Daliresp*] 500 mcg PO DAILY 03/13/17 Tiotropium [place] [Spiriva] 1 spray IH DAILY 03/13/17 Albuterol Sulfate [Proair Respiclick] 90 mcg IH Q6HP PRN 10/18/18 Docusate Sodium 100 mg PO BID 10/18/18 Oxycodone HCl [Roxicodone] 5 mg PO Q4HP PRN 10/18/18 Albuterol Sulfate [Albuterol Sulfate 0.083% Neb Soln] 2.5 mg IH QID PRN #90 ml 10/19/18 Amoxicillin/Potassium Clav [Augmentin 500-125 Tablet] 1 each PO BID #14 tablet 10/19/18 Benzonatate [Tessalon Perle*] 200 mg PO TID PRN #20 cap 10/19/18 Budesonide/Formoterol Fumarate [Symbicort 160-4.5 Mcg Inhaler] 2 puff IH BID #1 hfa.aer.ad 10/19/18 Fluticasone Propionate [Flonase Allergy Relief] 1 spray NS BID #1 spray.susp Pantoprazole [Protonix Tab] 40 mg PO DAILY #30 tab 10/19/18 predniSONE [Prednisone*] 20 mg PO SEECOM #15 tab 10/19/18 New Medications: Albuterol Sulfate [Albuterol Sulfate 0.083% Neb Soln] 2.5 mg IH QID PRN #90 ml PRN Reason: Shortness Of Breath Amoxicillin/Potassium Clav [Augmentin 500-125 Tablet] 1 each PO BID #14 tablet Benzonatate [Tessalon Perle*] 200 mg PO TID PRN #20 cap PRN Reason: Cough Budesonide/Formoterol Fumarate [Symbicort 160-4.5 Mcg Inhaler] 2 puff IH BID #1 hfa.aer.ad Fluticasone Propionate [Flonase Allergy Relief] 1 spray NS BID #1 spray.susp Pantoprazole [Protonix Tab] 40 mg PO DAILY #30 tab predniSONE [Prednisone*] 20 mg PO SEECOM #15 tab Patient Discharge Instructions: [facility]. [facility]. 2. Patient presented with dyspnea secondary to COPD exacerbation complicated with acute sinusitis likely with underlying obstructive sleep apnea. Patient currently uses home oxygen as needed. Patient with advanced COPD. Patient did well in the course of his stay. Patient had V/Q scan which showed no pulmonary embolism. Chest x-ray showed no pneumonia. Echocardiogram done. Results pending at discharge. At discharge she is without any significant shortness of breath. Patient treated for sinusitis and COPD exacerbation. Patient has done well. Patient without the need for oxygen at discharge. Patient ambulating well. At discharge patient will continue with Augmentin 500 mg 1 pill twice daily for 7 days for his sinusitis. Patient will also continue with prednisone 20 mg 1 pill twice daily for 5 days then 1 pill once daily for 5 days for his COPD exacerbation. Patient will continue with his COPD medication including-albuterol nebs 1 unit dose 4 times a day as needed for shortness of breath, Symbicort 160 mcg 2 puffs twice daily, Spiriva 18 mcg 1 puff daily, and Daliresp 5 mcg one pill daily. Recommendations for the patient follow up with pulmonology as an outpatient to further monitor his COPD and continue his care. Patient may continue with home oxygen to maintain sats above 90%. Patient will be given a limited supply of cough medication-Tessalon 100 mg 1 pill 3 times a day as needed for cough. Recommendation is for the patient to follow up with ENT to further evaluate his sinusitis. Patient may continue with Flonase 1 spray per nostril twice daily, Zyrtec 10 mg daily. Astepro has been discontinued. Patient likely with underlying obstructive sleep apnea. Recommendation is for the patient to have a sleep study done as an outpatient to evaluate for sleep apnea. This can be done with ENT or pulmonology. 3. Patient with hypertension. Patient will continue with his medications carvedilol 12.5 mg 1 pill twice daily and lisinopril 5 mg daily. Recommendation is to maintain blood pressures less 150/ 80. Further adjustment can be done by his PCP. 4. Patient with hyperlipidemia. Patient will continue with his medication Lipitor 80 mg daily. 5. Patient with CAD. Patient will continue with aspirin 81 mg daily and Plavix 75 mg daily. Patient will need to follow up with his pick remover as directed. 6. Patient with renal sufficiency. This remained stable during his stay. Patient likely with underlying stage II chronic renal disease. Recommendation to recheck lab-BMP in 1 week. Recommendation is for the patient to follow up with nephrology as an outpatient to further monitor and address. 7. Patient likely with underlying GERD. Recommendation is for the patient to start Protonix 40 mg 1 pill once daily. Patient may benefit with GI evaluation as an outpatient. 8. Patient with hypothyroidism. Patient will continue with Levoxyl 100 mcg daily. 9. Patient with chronic pain. Patient will continue with his oxycodone. Recommendation is for the patient follow up with pain management to further monitor and address. 10. Patient with obesity. BMI 34. Lifestyle modification education will be provided. Diet: AHA Activity: Fall precautions Time spent managing pt's care (in minutes): 55
[2018-10-19] MEDS: ENOXAPARIN 40 MG/0.4 ML SQ SCH (16:51)
--- NOTE | 2018-10-20 09:00 | ECHO ---
HEIGHT: 5 ft 7 in WEIGHT: 219 lb 11.2 oz DATE OF STUDY: 10/19/[address]: Omar Hassan DO 2-DIMENSIONAL: YES M.MODE: YES DOPPLER: YES COLOR FLOW: YES TDS: NO PORTABLE: NO DEFINITY: NO BUBBLE STUDY: NO DIAGNOSIS: SHORTNESS OF BREATH/CONGESTIVE HEART FAILURE CARDIAC HISTORY: CATHERIZATION: NO SURGERY: NO PROSTHETIC VALVE: NO PACEMAKER: NO MEASUREMENTS (cm) DIASTOLIC (NORMALS) SYSTOLIC (NORMALS) IVSd 1.1 (0.6-1.2) LA Diam 3.9 (1.9-4.0) LVEF 69% LVIDd 4.8 (3.5-5.7) LVIDs 3.0 (2.0-3.5) %FS 39% LVPWd 1.2 (0.6-1.2) Ao Diam 3.6 (2.0-3.7) 2 DIMENSIONAL ASSESSMENT: RIGHT ATRIUM: NORMAL LEFT ATRIUM: NORMAL RIGHT VENTRICLE: NORMAL LEFT VENTRICLE: NORMAL TRICUSPID VALVE: NORMAL MITRAL VALVE: NORMAL PULMONIC VALVE: NORMAL AORTIC VALVE: MILD SCLEROSIS PERICARDIAL EFFUSION: NONE AORTIC ROOT: NORMAL LEFT VENTRICULAR WALL MOTION: NORMAL. DOPPLER/COLOR FLOW: NO AORTIC STENOSIS OR AORTIC REGURGITATION. NORMAL CARDIAC DOPPLER. COMMENTS: NORMAL LEFT VENTRICULAR EJECTION FRACTION. AORTIC SCLEROSIS WITH NO AORTIC STENOSIS/ AORTIC REGURGITATION OTHERWISE NORMAL 2D ECHO WITH DOPPLER. TECHNOLOGIST: ZULEYKA CONTRERAS
== END 2018-10-19 17:43 | disposition home or self-care (01) ==
LOC: ER 02:39 → ERHOLD 05:02 → 4TH 10:26
PROVIDERS: ADMIT Hospitalist; ATTEND Hospitalist
DX: J44.1 Chronic obstructive pulmonary disease with (acute) exacerbation (principal); J01.90 Acute sinusitis, unspecified; I10 Essential (primary) hypertension; E78.5 Hyperlipidemia, unspecified; E03.9 Hypothyroidism, unspecified; I25.10 Atherosclerotic heart disease of native coronary artery without angina pectoris; N28.9 Disorder of kidney and ureter, unspecified; E66.9 Obesity, unspecified; Z68.34 Body mass index [BMI] 34.0-34.9, adult; G89.29 Other chronic pain; Z96.652 Presence of left artificial knee joint; R09.02 Hypoxemia
CPT/HCPCS: 36415 ×2; 71045; 71046; 78582; 80048 ×3; 80076; 82805; 83735 ×3; 83880; 84100; 84132; 84484; 85025 ×3; 85379; 85610; 93005; 93306; 93970; 94640 ×2; 96361; 96372; 96374; 97163; 99285; A9540; A9558; G0378 ×2; J1650 ×4; J2930 ×4; J7030 ×3; J7605 ×4; J7512; J7606

== ENCOUNTER 2018-12-28 17:00 | Emergency (ER) | payer OTHER ==
--- NOTE | 2018-12-28 17:57 | RAD REPORT ---
EXAM DESCRIPTION: RAD - Chest Single View - 12/28/2018 5:26 pm CLINICAL HISTORY: Trauma;Rib Pain - Right Chest pain. COMPARISON: Chest Pa And Lat (2 Views) dated 10/19/2018; Chest Single View dated 10/18/2018; Chest P a And Lat (2 Views) dated 03/15/2017; Chest Single View dated 03/12/2017 FINDINGS: Portable technique limits examination quality. The lungs are grossly clear. The heart is normal in size. No displaced fractures.Mild dextroscoliosis of the thoracic spine. IMPRESSION: No acute intrathoracic process suspected.
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
[2018-12-28 18:59] VITALS: BP 125/78; TEMP 98.1; O2SAT 100
== END 2018-12-28 18:18 | disposition home or self-care (01) ==
LOC: ER 17:00
DX: S81.811A Laceration without foreign body, right lower leg, initial encounter (principal); V19.9XXA Pedal cyclist (driver) (passenger) injured in unspecified traffic accident, initial encounter; Y93.55 Activity, bike riding; R07.81 Pleurodynia; J45.909 Unspecified asthma, uncomplicated; J44.9 Chronic obstructive pulmonary disease, unspecified; I10 Essential (primary) hypertension; E78.5 Hyperlipidemia, unspecified
CPT/HCPCS: 71045; 99284

== ENCOUNTER 2019-11-05 12:25 | Observation (INO) | payer OTHER ==
[2019-11-05] MEDS ORDERED: NA CHLORIDE 0.9% 1,000 ML ONE (12:48)
[2019-11-05 12:51] LABS: Absolute Lymphocytes (CBC) 2.4 K/uL (0.7-4.9); Basophils % 0.6 % (0-1.3); Hematocrit 34.2 % (39.6-49.0); Lymphocytes % 27.1 % (15.3-44.8); MPV 8.5 fL (7.6-11.3); RBC Red Blood Cell Count 4.23 M/uL (4.33-5.43)
[2019-11-05 12:53] LABS: Protime INR 1.06
[2019-11-05 13:10] LABS: ALT/SGPT 35 U/L (12-78); AST/SGOT 24 U/L (15-37); Albumin 3.2 g/dL (3.4-5.0); Alkaline Phosphatase 63 U/L (45-117); BUN Blood Urea Nitrogen 25 mg/dL (7-18); Bicarbonate 27 mmol/L (21-32); Bilirubin Direct < 0.1 mg/dL (0-0.2); Bilirubin Total 0.2 mg/dL (0.2-1.0); Glucose Level 109 mg/dL (74-106); Magnesium 1.9 mg/dL (1.8-2.4); NT PRO-BNP 81 pg/mL (<125); Potassium 4.6 mmol/L (3.5-5.1); Protein, Total 6.4 g/dL (6.4-8.2); Sodium Level 137 mmol/L (136-145); Troponin (Emerg Dept Use Only) < 0.02 ng/mL (0.0-0.045)
[2019-11-05] MEDS ORDERED: AZITHROMYCIN 500 MG INJ IVPB ONE (13:21)
[2019-11-05] MEDS ORDERED: NA CHLORIDE 0.9% 100 ML IV ONE (13:21)
[2019-11-05] MEDS ORDERED: dexAMETHasone 10 MG/ML VIAL ONE (13:21)
[2019-11-05] MEDS ORDERED: METHYLPREDNISOLONE 125 MG INJ ONE (13:21)
[2019-11-05] MEDS ORDERED: IPRATROPIUM BROM 0.5MG/2.5ML ONE (13:21)
[2019-11-05] MEDS ORDERED: CEFTRIAXONE/SWI 1gm 1 GM/10 ML SYR ONE (13:21)
[2019-11-05] MEDS ORDERED: LEVALBUTEROL 1.25 MG/3 ML NEB ONE ×2 (13:21→14:05)
--- NOTE | 2019-11-05 13:23 | RAD REPORT ---
EXAM DESCRIPTION: RAD - Chest Single View - 11/05/2019 1:16 pm CLINICAL HISTORY: Cough;Dyspnea Chest pain. COMPARISON: Chest Single View dated 12/28/2018; Chest Pa And Lat (2 Views) dated 10/19/2018; Chest Sin gle View dated 10/18/2018; Chest Pa And Lat (2 Views) dated 03/15/2017 FINDINGS: Portable technique limits examination quality. The lungs are emphysematous but grossly clear. The heart is normal in size. No displaced fractures. IMPRESSION: No acute intrathoracic process suspected.
[2019-11-05 14:02] LABS: Urine Blood NEGATIVE (NEG); Urine Glucose NEGATIVE (NEG); Urine Protein NEGATIVE (NEG)
--- NOTE | 2019-11-05 14:23 | EDPHYS ---
Physician Documentation [facility] Name: David Hernandez Age: 74 yrs Sex: Male : 1945 Arrival Date: 11/05/2019 Time: 12:26 Bed 5 Private MD: ED Physician Thee Lopez HPI: 11/05 12:45 This 74 yrs old Male presents to ER via Ambulatory with complaints of kingsley Shortness Of Breath, Dizziness, Congestion. 12:45 The patient has shortness of breath at rest, with light activity. Onset: The kingsley symptoms/episode began/occurred 1 week(s) ago. Duration: The symptoms are continuous, and are steadily getting worse. The patient's shortness of breath has no apparent modifying factors. Associated signs and symptoms: The patient has no apparent associated signs or symptoms. Severity of symptoms: At their worst the symptoms were moderate in the emergency department the symptoms are unchanged. The patient has not experienced similar symptoms in the past. Historical: - Allergies: 12:37 No Known Allergies; sv - PMHx: 12:37 Asthma; COPD; Hyperlipidemia; Hypertension; sv - PSHx: 12:37 Heart stents; Knee surgery; Hernia repair; sv - Immunization history:: Flu vaccine is up to date. - Social history:: Smoking status: Patient/guardian denies using tobacco. - Ebola Screening: : No symptoms or risks identified at this time. - Family history:: not pertinent. ROS: 12:45 Constitutional: Negative for fever, chills, and weight loss, Eyes: Negative for injury, kingsley pain, redness, and discharge, ENT: Negative for injury, pain, and discharge, Neck: Negative for injury, pain, and swelling, Cardiovascular: Negative for chest pain, palpitations, and edema, Abdomen/GI: Negative for abdominal pain, nausea, vomiting, diarrhea, and constipation, Back: Negative for injury and pain, : Negative for injury, bleeding, discharge, and swelling, MS/Extremity: Negative for injury and deformity, Skin: Negative for injury, rash, and discoloration, Neuro: Negative for headache, weakness, numbness, tingling, and seizure, Psych: Negative for depression, anxiety, suicide ideation, homicidal ideation, and hallucinations, Allergy/Immunology: Negative for hives, rash, and allergies, Endocrine: Negative for neck swelling, polydipsia, polyuria, polyphagia, and marked weight changes, Hematologic/Lymphatic: Negative for swollen nodes, abnormal bleeding, and unusual bruising. 12:45 Respiratory: Positive for cough, shortness of breath, wheezing, inspiratory, expiratory. Exam: 12:45 Constitutional: This is a well developed, well nourished patient who is awake, alert, kingsley and in no acute distress. Head/Face: Normocephalic, atraumatic. Eyes: Pupils equal round and reactive to light, extra-ocular motions intact. Lids and lashes normal. Conjunctiva and sclera are non-icteric and not injected. Cornea within normal limits. Periorbital areas with no swelling, redness, or edema. ENT: Nares patent. No nasal discharge, no septal abnormalities noted. Tympanic membranes are normal and external auditory canals are clear. Oropharynx with no redness, swelling, or masses, exudates, or evidence of obstruction, uvula midline. Mucous membranes moist. Neck: Trachea midline, no thyromegaly or masses palpated, and no cervical lymphadenopathy. Supple, full range of motion without nuchal rigidity, or vertebral point tenderness. No Meningismus. Chest/axilla: Normal chest wall appearance and motion. Nontender with no deformity. No lesions are appreciated. Cardiovascular: Regular rate and rhythm with a normal S1 and S2. No gallops, murmurs, or rubs. Normal PMI, no JVD. No pulse deficits. Abdomen/GI: Soft, non-tender, with normal bowel sounds. No distension or tympany. No guarding or rebound. No evidence of tenderness throughout. Back: No spinal tenderness. No costovertebral tenderness. Full range of motion. Male : Normal genitalia with no discharge or lesions. Skin: Warm, dry with normal turgor. Normal color with no rashes, no lesions, and no evidence of cellulitis. MS/ Extremity: Pulses equal, no cyanosis. Neurovascular intact. Full, normal range of motion. Neuro: Awake and alert, GCS 15, oriented to person, place, time, and situation. Cranial nerves II-XII grossly intact. Motor strength 5/5 in all extremities. Sensory grossly intact. Cerebellar exam normal. Normal gait. Psych: Awake, alert, with orientation to person, place and time. Behavior, mood, and affect are within normal limits. 12:45 Respiratory: the patient does not display signs of respiratory distress, Respirations: no acute changes, labored breathing, that is mild, Breath sounds: decreased breath sounds, rhonchi, wheezing: inspiratory expiratory 12:47 Musculoskeletal/extremity: DVT Exam: No signs of deep vein thrombosis. no pain, no kingsley swelling, no tenderness, negative Homans' sign noted on exam, no appreciated bluish discoloration, no erythema, no increased warmth. Vital Signs: 12:37 BP 128 / 72; Pulse 65; Resp 22; Temp 97.9(O); Pulse Ox 97% on R/A; Weight 108.86 kg; sv Height 5 ft. 9 in. (175.26 cm); 13:30 BP 114 / 79; Pulse 66; Resp 16; Pulse Ox 100% ; bp 14:38 BP 125 / 86; Pulse 60; Resp 17; Pulse Ox 100% ; bp 15:31 BP 146 / 82; Pulse 65; Resp 22; Temp 98; Pulse Ox 98% ; bp 12:37 Body Mass Index 35.44 (108.86 kg, 175.26 cm) sv MDM: 12:28 Patient medically screened. [facility] 12:47 Data reviewed: vital signs, nurses notes, lab test result(s), EKG, radiologic studies, [facility] plain films. 11/05 12:30 Order name: Basic Metabolic Panel; Complete Time: 13:20 [facility] 11/05 12:30 Order name: CBC with Diff; Complete Time: 13:20 [facility] 11/05 12:30 Order name: LFT's; Complete Time: 13:20 [facility] 11/05 12:30 Order name: Magnesium; Complete Time: 13:20 [facility] 11/05 12:30 Order name: NT PRO-BNP; Complete Time: 13:20 [facility] 11/05 12:30 Order name: PT-INR; Complete Time: 13:20 [facility] 11/05 12:30 Order name: Troponin (emerg Dept Use Only); Complete Time: 13:20 [facility] 11/05 12:30 Order name: XRAY Chest (1 view); Complete Time: 13:38 [facility] 11/05 12:30 Order name: Urine Culture [facility] 11/05 12:45 Order name: D-Dimer; Complete Time: 13:57 [facility] 11/05 12:45 Order name: Blood Culture Adult (2) [facility] 11/05 12:45 Order name: Influenza Screen (a \T\ B); Complete Time: 14:20 [facility] 11/05 13:39 Order name: US Extremity Venous W Compression Jamal [facility] 11/05 13:55 Order name: Urine Dipstick--Ancillary (enter results); Complete Time: 14:20 em1 11/05 12:30 Order name: EKG; Complete Time: 12:31 [facility] 11/05 12:30 Order name: Cardiac monitoring; Complete Time: 12:43 [facility] 11/05 12:30 Order name: EKG - Nurse/Tech; Complete Time: 12:43 [facility] 11/05 12:30 Order name: IV Saline Lock; Complete Time: 14:06 [facility] 11/05 12:30 Order name: Labs collected and sent; Complete Time: 14:06 [facility] 11/05 12:30 Order name: O2 Per Protocol; Complete Time: 12:34 [facility] 11/05 15:13 Order name: US EDMS 11/05 12:30 Order name: O2 Sat Monitoring; Complete Time: 12:34 [facility] 11/05 12:30 Order name: Urine Dipstick-Ancillary (obtain specimen); Complete Time: 13:54 [facility] Administered Medications: 12:45 Drug: NS 0.9% 1000 ml Route: IV; Rate: 125 ml/hr; Site: right antecubital; bp 15:17 Follow up: IV Status: Infusion continued upon admission bp 13:15 Drug: Xopenex 3.75 mg Route: Inhalation; bp 13:15 Drug: AtroVENT Aerosol 0.5 mg Route: Inhalation; bp 13:15 Drug: SOLU-Medrol 125 mg Route: IVP; Site: right antecubital; bp 14:00 Follow up: Response: No adverse reaction bp 13:15 Drug: Decadron - Dexamethasone 10 mg Route: IVP; Site: right antecubital; bp 14:00 Follow up: Response: No adverse reaction bp 13:30 Drug: Rocephin 1 grams Route: IV; Rate: per protocol; Site: right antecubital; bp 15:17 Follow up: IV Status: Completed infusion; IV Intake: 50ml bp 13:30 Drug: Zithromax 500 mg Route: IVPB; Infused Over: 1 hrs; Site: right antecubital; bp 15:17 Follow up: IV Status: Completed infusion; IV Intake: 100ml bp 14:02 Drug: Xopenex 2.5 mg Route: Inhalation; bp 14:40 Drug: Lovenox 40 mg Route: Sub-Q; Site: right lower abdomen; bp 15:17 Follow up: Response: No adverse reaction bp Disposition: 11/05/19 14:22 Hospitalization ordered by Abby Arzola for Inpatient Admission. Preliminary diagnosis are Dyspnea, Bronchitis, not specified as acute or chronic, Chronic obstructive pulmonary disease with (acute) exacerbation, Unspecified kidney failure. - Bed requested for Telemetry/MedSurg (Inpatient). - Status is Inpatient Admission. bp - Condition is Fair. - Problem is new. - Symptoms have improved. UTI on Admission? No Signatures: Dispatcher [employer] EDKrystin Everett RN RN Thee Aparicio MD MD cha Villarreal, Maria ms Peltier, Brian, RN RN bp Corrections: (The following items were deleted from the chart) 15:12 14:22 Hospitalization Ordered by Abby Arzola MD for Inpatient Admission. Preliminary ms diagnosis is Dyspnea; Bronchitis, not specified as acute or chronic; Chronic obstructive pulmonary disease with (acute) exacerbation; Unspecified kidney failure. Bed requested for Telemetry/MedSurg (Inpatient). Status is Inpatient Admission. Condition is Fair. Problem is new. Symptoms have improved. UTI on Admission? No. [facility] 15:32 15:12 11/05/2019 14:22 Hospitalization Ordered by Abby Arzola MD for Inpatient bp Admission. Preliminary diagnosis is Dyspnea; Bronchitis, not specified as acute or chronic; Chronic obstructive pulmonary disease with (acute) exacerbation; Unspecified kidney failure. Bed requested for Telemetry/MedSurg (Inpatient). Status is Inpatient Admission. Condition is Fair. Problem is new. Symptoms have improved. UTI on Admission? No. ms
--- NOTE | 2019-11-05 14:23 | ER ---
Nurse's Notes [facility] Name: David Hernandez Age: 74 yrs Sex: Male : 1945 Arrival Date: 11/05/2019 Time: 12:26 Bed 5 Private MD: Diagnosis: Dyspnea;Bronchitis, not specified as acute or chronic;Chronic obstructive pulmonary disease with (acute) exacerbation;Unspecified kidney failure Presentation: 11/05 12:35 Presenting complaint: Patient states: SOB, congestion started 3 days ago and dizziness sv started today. Transition of care: patient was not received from another setting of care. Onset of symptoms was November 02, 2019. Risk Assessment: Do you want to hurt yourself or someone else? Patient reports no desire to harm self or others. Initial Sepsis Screen: Does the patient meet any 2 criteria? RR > 20 per min. No. Patient's initial sepsis screen is negative. Does the patient have a suspected source of infection? No. Patient's initial sepsis screen is negative. Care prior to arrival: None. 12:35 Method Of Arrival: Ambulatory sv 12:35 Acuity: EROS 3 sv Triage Assessment: 15:16 General: Appears in no apparent distress. comfortable, Behavior is calm, cooperative, bp appropriate for age. Respiratory: Reports shortness of breath cough that is Onset: The symptoms/episode began/occurred at an unknown time. the patient has mild shortness of breath. Historical: - Allergies: 12:37 No Known Allergies; sv - PMHx: 12:37 Asthma; COPD; Hyperlipidemia; Hypertension; sv - PSHx: 12:37 Heart stents; Knee surgery; Hernia repair; sv - Immunization history:: Flu vaccine is up to date. - Social history:: Smoking status: Patient/guardian denies using tobacco. - Ebola Screening: : No symptoms or risks identified at this time. - Family history:: not pertinent. Screenin:57 Abuse screen: Denies threats or abuse. Denies injuries from another. Nutritional bp screening: No deficits noted. Tuberculosis screening: No symptoms or risk factors identified. Fall Risk None identified. Assessment: 12:35 General: SEE TRIAGE NOTE. Pain: Denies pain. Cardiovascular: Rhythm is sinus rhythm. bp Respiratory: Airway is patent Respiratory effort is even, unlabored, Breath sounds are coarse bilaterally. GI: No signs and/or symptoms were reported involving the gastrointestinal system. : No signs and/or symptoms were reported regarding the genitourinary system. EENT: No deficits noted. Derm: No deficits noted. Musculoskeletal: No deficits noted. 13:30 Reassessment: BLOOD CX SENT x2, ALL CURRENT ORDERS COMPLETED, RESULTS PENDING. bp 14:37 Reassessment: U/S AT B/S FOR VENOUS DOPPLER STUDY. bp 15:12 Reassessment: DR VELIZ AT B/S. ADMIT IN PROCESS. bp 15:31 Reassessment: ADMIT COMPLETE, PT ASHUTOSH. bp Vital Signs: 12:37 BP 128 / 72; Pulse 65; Resp 22; Temp 97.9(O); Pulse Ox 97% on R/A; Weight 108.86 kg; sv Height 5 ft. 9 in. (175.26 cm); 13:30 BP 114 / 79; Pulse 66; Resp 16; Pulse Ox 100% ; bp 14:38 BP 125 / 86; Pulse 60; Resp 17; Pulse Ox 100% ; bp 15:31 BP 146 / 82; Pulse 65; Resp 22; Temp 98; Pulse Ox 98% ; bp 12:37 Body Mass Index 35.44 (108.86 kg, 175.26 cm) sv ED Course: 12:26 Patient arrived in ED. as 12:28 Thee Lopez MD is Attending Physician. kingsley 12:36 Triage completed. sv 12:37 Arm band placed on Patient placed in an exam room, on a stretcher. sv 12:40 Inserted saline lock: 20 gauge in right antecubital area, using aseptic technique. bp Blood collected. 12:43 EKG done, by ED staff, reviewed by Thee Lopez MD. em1 12:57 Patient has correct armband on for positive identification. Bed in low position. Call bp light in reach. Side rails up X2. 13:02 Nic Turcios, [facility] is Primary Nurse. bp 13:16 XRAY Chest (1 view) In Process Unspecified. EDMS 14:21 Abby Arzola MD is Hospitalizing Provider. kingsley 14:57 Ultrasound completed. Patient tolerated well. sg3 15:16 No provider procedures requiring assistance completed. Patient admitted, IV remains in bp place. Administered Medications: 12:45 Drug: NS 0.9% 1000 ml Route: IV; Rate: 125 ml/hr; Site: right antecubital; bp 15:17 Follow up: IV Status: Infusion continued upon admission bp 13:15 Drug: Xopenex 3.75 mg Route: Inhalation; bp 13:15 Drug: AtroVENT Aerosol 0.5 mg Route: Inhalation; bp 13:15 Drug: SOLU-Medrol 125 mg Route: IVP; Site: right antecubital; bp 14:00 Follow up: Response: No adverse reaction bp 13:15 Drug: Decadron - Dexamethasone 10 mg Route: IVP; Site: right antecubital; bp 14:00 Follow up: Response: No adverse reaction bp 13:30 Drug: Rocephin 1 grams Route: IV; Rate: per protocol; Site: right antecubital; bp 15:17 Follow up: IV Status: Completed infusion; IV Intake: 50ml bp 13:30 Drug: Zithromax 500 mg Route: IVPB; Infused Over: 1 hrs; Site: right antecubital; bp 15:17 Follow up: IV Status: Completed infusion; IV Intake: 100ml bp 14:02 Drug: Xopenex 2.5 mg Route: Inhalation; bp 14:40 Drug: Lovenox 40 mg Route: Sub-Q; Site: right lower abdomen; bp 15:17 Follow up: Response: No adverse reaction bp Intake: 15:17 IV: 100ml; Total: 100ml. bp 15:17 IV: 50ml; Total: 150ml. bp Outcome: 14:22 Decision to Hospitalize by Provider. [facility] 15:16 Admitted to Tele accompanied by tech, via wheelchair, room 410, with chart, Report bp called to SKYE MIRELES 15:16 Condition: stable 15:16 Instructed on the need for admit. 15:32 Patient left the ED. bp Signatures: Dispatcher [employer] Krystin Mar RN RN sv Anderson, Corey, MD MD cha Martinez, Amelia as Martinez, Eric em1 Nic Turcios RN RN Citlalli Ruiz 3
[2019-11-05] MEDS ORDERED: ENOXAPARIN 40 MG/0.4 ML SQ ONE (15:11)
--- NOTE | 2019-11-05 15:12 | RAD REPORT ---
EXAM DESCRIPTION: US - Extrem Venous W Compress Jamal - 11/05/2019 2:57 pm CLINICAL HISTORY: PAIN Bilateral leg edema and swelling. COMPARISON: <Comparisons> TECHNIQUE: Real-time sonographic interrogation of the left and right lower extremity deep venous sys tems was performed. FINDINGS: Normal compressibility, flow augmentation, phasic flow and spontaneous flow is identified in both the left and right lower extremity deep venous systems. IMPRESSION: No sonographic evidence of left or right lower extremity deep venous thrombosis.
[2019-11-05] MEDS: NA CHLORIDE 0.9% 1,000 ML IV SCH ×2 (15:43→23:24)
[2019-11-05] MEDS ORDERED: ONDANSETRON 4 MG/2 ML VIAL IV PRN (15:43)
[2019-11-05] MEDS ORDERED: ACETAMINOPHEN 500 MG TAB PO PRN (15:43)
[2019-11-05 16:20] VITALS: BMI 35.4
--- NOTE | 2019-11-05 18:47 | EKG ---
Test Date: 2019-11-05 Test Time: 12:39:10 Photonics Engineering Technologist: EARL MEASUREMENT RESULTS: Intervals: Rate: 64 VA: 150 QRSD: 86 QT: 414 QTc: 427 [place]: P: 44 VA: 150 QRS: 65 T: 62 INTERPRETIVE STATEMENTS: Normal sinus rhythm Normal ECG Compared to ECG 10/18/2018 03:58:13 No significant changes Electronically Signed On 11-05-19 18:47:04 SUSTAINABILITY ANALYST by Salbador Timmons
[2019-11-05] MEDS: IPRATROPIUM BROM 0.5MG/2.5ML NEB SCH (19:55)
[2019-11-05] MEDS: ALBUTEROL 2.5 MG/3 ML NEB SOL NEB SCH (19:55)
[2019-11-05] MEDS: GUAIFENESIN 600 MG SA TAB PO SCH (20:59)
[2019-11-05] MEDS ORDERED: LATANOPROST 0.005% 2.5ML OPTH OPTH SCH (21:00)
[2019-11-05] MEDS: carvediloL 12.5 MG TAB PO SCH (21:00)
[2019-11-05] MEDS ORDERED: HOME MED 1 EA UNK (Fluticasone Propionate [Flonase Allergy Relief] 1 SPRAY) NS SCH (21:00)
[2019-11-05] MEDS: METHYLPREDNISOLONE 40 MG INJ IV SCH (21:01)
--- NOTE | 2019-11-05 22:10 | HP ---
Date of Admission: 11/05/2019 Chief Complaint: Shortness of breath, cough, congestion. [facility]. Code Status: Full. History Of Present Illness: Patient is a 74-year-old male with past medical history of COPD, asthma, hypertension, hyperlipidemia, heart disease, status post stents, who was in his usual state of healt h until 3 weeks prior to admission when the patient had cough, congestion. No sputum production. No ill contacts. No significant fever or chills. Patient had some shortness of breath. His condition deteriorated. He went to his primary [facility] and was given antibiotics that began with a D, unabl e to tell me the name. States that doxycycline sounds about right. He took 3 or 4 days worth of ant ibiotics, did not feel better and then stopped taking the antibiotics. He did finish off his course of steroids. As he was not feeling better despite the antibiotics, he came into the ER for further e valuation. He accidentally disposed off his Symbicort and did not have his inhaler on him. Symptoms are constant, moderate, and progressively worsening. No alleviating factors. Workup in the ER did not show any hypoxia. Patient's white count was 8.7. No signs of sepsis. Did have elevated creatin ine level of 1.79. His D-dimer was negative. Chest x-ray showed no acute intrathoracic process. Hi s Doppler sonogram did not show any DVT. Patient was then referred for admission. He did receive st eroids, nebulizer treatments, and IV fluids. When seen in the ER, he was awake, alert, and oriented x3, in some mild distress. Past Medical History: Hypertension, COPD, asthma, coronary artery disease status post stent, hyperli pidemia. Past Surgical History: Hernia repair, carpal tunnel repair, bilateral cataract surgery, cardiac sten ts. Allergies: NO KNOWN DRUG ALLERGIES. Medications: List reviewed. Family History: Mother had lung disease and skin cancer and respiratory issues. Sister had cancer a nd melanoma. Social History: Patient denies any tobacco use, alcohol use, or illicit drug use. Review of Systems: Ten-point system reviewed, negative except as per HPI. Physical Examination: Vital Signs: Blood pressure 128/72, pulse 65, respirations 22, temperature 97.9, O2 97% on room air, BMI 35. General: Awake, alert, and oriented x3. Elderly male, obese, ill-appearing. HEENT: Normocephalic, atraumatic. PERRLA. EOMI. Dry mucous membranes. Oropharynx is clear. Norm al dentition. Conjunctivae are anicteric. Neck: Supple. No JVD. Trachea midline. CV: S1, S2. Regular rate and rhythm. Peripheral pulses present. Respiratory: Diminished breath sounds. Minimal wheezing. No rhonchi. No stridor. No use of acces [place] muscles. Gastrointestinal: Abdomen is soft, nontender, nondistended. Positive bowel sounds. No guarding or rigidity. Extremities: No clubbing, cyanosis, or edema. No calf tenderness. Neuro: Cranial nerves 2 through 12 intact grossly. No focal neurological deficits. Speech is lizzette l. Skin: No rashes. Normal skin turgor. Psych: Mood is okay. Affect is full. Insight and judgment are good. Laboratory Data: UA is negative. Sodium 137, potassium 4.6, chloride 105, CO2 of 27, BUN 25, creati nine 1.79, glucose 109, calcium 8.7, magnesium 1.9. Troponin less than 0.02, albumin 3.2. INR 1.06. D-dimer 460. WBC 8.7, H and H 11.3 and 34.2, platelets 267, neutrophils 46%. Influenza screen is negative. Doppler sonogram shows no DVT in either lower extremity. Chest x-ray, personally reviewed , shows no acute intrathoracic process. Assessment: A 74-year-old male with, 1.Acute bronchitis, failed outpatient treatment. Patient was on oral antibiotics for greater than 7 2 hours and steroids, did not have much improvement. We will start on IV azithromycin, IV steroids, and nebulizer treatments. We will add maintenance inhaler. 2.Acute chronic obstructive pulmonary disease exacerbation. We will continue with nebulizer treatme nts, supplemental oxygen as needed, and steroids. 3.Acute on chronic kidney injury stage III, creatinine is slightly above baseline of about 1.5. We will continue to monitor. 4.Essential hypertension, stable. We will resume home medications as appropriate. 5.Obesity, BMI greater than 30. 6.Coronary artery disease of [place] artery and [place] heart without angina, status post stent, stafaizan dawkins. 7.Mixed hyperlipidemia, we will continue statin. Plan: Admit patient to Med-Surg, [facility] as observation. SA/MODL Voice ID: [id number]
[2019-11-06] MEDS: ALBUTEROL 2.5 MG/3 ML NEB SOL NEB SCH ×2 (01:15→08:45)
[2019-11-06] MEDS: IPRATROPIUM BROM 0.5MG/2.5ML NEB SCH ×2 (01:15→08:45)
[2019-11-06] MEDS: NA CHLORIDE 0.9% 1,000 ML IV SCH (04:14)
[2019-11-06 05:08] VITALS: O2SAT 93
[2019-11-06 06:50] LABS: Basophils % 0.1 % (0-1.3); Hematocrit 33.4 % (39.6-49.0); Lymphocytes % 21.1 % (15.3-44.8); MPV 8.7 fL (7.6-11.3); RBC Red Blood Cell Count 4.15 M/uL (4.33-5.43)
[2019-11-06 07:03] LABS: Albumin 3.3 g/dL (3.4-5.0); Bilirubin Total 0.3 mg/dL (0.2-1.0); Potassium 4.6 mmol/L (3.5-5.1); Protein, Total 6.6 g/dL (6.4-8.2)
[2019-11-06] MEDS ORDERED: FLUTICASONE 50MCG NASAL SPRAY NAS SCH (09:00)
[2019-11-06] MEDS ORDERED: ATORVASTATIN 40 MG TAB PO SCH (09:00)
[2019-11-06] MEDS: GUAIFENESIN 600 MG SA TAB PO SCH (09:00)
[2019-11-06] MEDS ORDERED: LEVOTHYROXINE SOD 0.1 MG TAB PO SCH (09:00)
[2019-11-06] MEDS ORDERED: AZITHROMYCIN IV 500 MG in NA CHLORIDE 0.9% 250 ML IVPB SCH (09:00)
[2019-11-06] MEDS ORDERED: ASPIRIN EC 81 MG TAB PO SCH (09:00)
[2019-11-06] MEDS ORDERED: ENOXAPARIN 40 MG/0.4 ML SQ SCH (09:00)
[2019-11-06] MEDS ORDERED: lisinopriL 10 MG TAB PO SCH (09:00)
[2019-11-06] MEDS ORDERED: CLOPIDOGREL 75 MG TABLET PO SCH (09:00)
[2019-11-06] MEDS ORDERED: ROFLUMILAST 500 MCG TABLET PO SCH (09:00)
[2019-11-06 09:07] VITALS: BP 153/92; TEMP 98.1
[2019-11-06] MEDS: carvediloL 12.5 MG TAB PO SCH (09:31)
[2019-11-06] MEDS: METHYLPREDNISOLONE 40 MG INJ IV SCH (09:34)
--- NOTE | 2019-11-07 01:50 | DS ---
Date of Discharge: 11/06/2019 Discharge Diagnoses: 1.Acute bronchitis, failed outpatient treatment. 2.Acute chronic obstructive pulmonary disease exacerbation. 3.Acute on chronic kidney injury stage 3. 4.Essential hypertension. 5.Obesity, body mass index greater than 30, 35.4 to be exact. 6.Mixed hyperlipidemia, stable. 7.Coronary artery disease, [place] artery and [place] heart without angina status post stent, stable. Hospital Course: The patient is a 74-year-old male with a past medical history of hypertension, hype rlipidemia, COPD, coronary artery disease, hypertension, comes in with acute bronchitis type symptoms with failed outpatient treatment. Patient also has chronic kidney disease. His creatinine was some what elevated at 1.79, above his baseline of 1.4. He was given IV fluids. Creatinine improved back to baseline. Regarding his bronchitis, patient was started on azithromycin, IV steroids, and nebulizer treatments. He did have improvement in his condition. His O2 saturations remained stable on room air. He was able to ambulate without difficulty. He did not have any signs of sepsis. White blood cell count wa s normal. D-dimer was negative. UA was also negative. Doppler sonogram was done of the lower extre mities, which was negative for any DVT. His influenza screen was negative. Blood cultures pending a t this time as well as sputum cultures. Urine culture was growing out mixed dimple. Chest x-ray did not show any acute infiltrates. Patient responded well to treatment. He was then cleared for discha rge. He was sent home in a stable condition. Activity: No strenuous activity. Followup: Follow up with primary care physician in 2-3 days. Return to ER for worsening condition. Medications: As per medication reconciliation list. Diet: Heart healthy. Physical Examination: General: Awake, alert, oriented, in no acute distress, obese male. CV: S1-S2. Respiratory: Moving air well bilaterally. Abdomen: Soft, nontender, nondistended. Positive bowel sounds. Extremities: No clubbing, cyanosis, or edema. Neurologic: Nonfocal. SA/MODL Voice ID: [id number] Report ID: [id number]
== END 2019-11-06 12:10 | disposition home or self-care (01) ==
LOC: ER 12:25 → ERHOLD 14:38 → 4TH 15:24
PROVIDERS: ADMIT Family Medicine; ATTEND Family Medicine
DX: J44.0 Chronic obstructive pulmonary disease with (acute) lower respiratory infection (principal); J20.9 Acute bronchitis, unspecified; J44.1 Chronic obstructive pulmonary disease with (acute) exacerbation; I25.10 Atherosclerotic heart disease of native coronary artery without angina pectoris; E78.2 Mixed hyperlipidemia; I12.9 Hypertensive chronic kidney disease with stage 1 through stage 4 chronic kidney disease, or unspecified chronic kidney disease; N18.3 Chronic kidney disease, stage 3 (moderate); N17.9 Acute kidney failure, unspecified; E66.9 Obesity, unspecified; Z68.35 Body mass index [BMI] 35.0-35.9, adult; Z95.5 Presence of coronary angioplasty implant and graft
CPT/HCPCS: 96365; 96361; 96368; 93005; 87040 ×2; 87088; 85025 ×2; 87086; 80048; 36415; 83735; 85610; 85379; 80076; 87077; 87186; 81003; 84484; 80053; 83880; 87804 ×2; 71045; 93970; 94760 ×4; 96375; 96372; 99285; 96366; J0456 ×2; J1650 ×2; J1100; J0696; J7030 ×3; J2930; J2920 ×2; G0378 ×3

== ENCOUNTER 2020-06-20 15:21 | Emergency (ER) | payer OTHER ==
[2020-06-20 16:02] LABS: Absolute Lymphocytes (CBC) 2.9 K/uL (0.7-4.9); Basophils % 0.6 % (0-1.3); Lymphocytes % 21.7 % (15.3-44.8); MPV 8.8 fL (7.6-11.3); RBC Red Blood Cell Count 5.05 M/uL (4.33-5.43)
[2020-06-20 16:05] LABS: Protime INR 1.01
[2020-06-20 16:23] LABS: ALT/SGPT 26 U/L (12-78); AST/SGOT 16 U/L (15-37); Albumin 3.9 g/dL (3.4-5.0); Alkaline Phosphatase 63 U/L (45-117); BUN Blood Urea Nitrogen 30 mg/dL (7-18); Bicarbonate 24 mmol/L (21-32); Bilirubin Direct 0.1 mg/dL (0-0.2); Bilirubin Total 0.4 mg/dL (0.2-1.0); Glucose Level 87 mg/dL (74-106); Magnesium 2.4 mg/dL (1.8-2.4); NT PRO-BNP 60 pg/mL (<125); Potassium 4.7 mmol/L (3.5-5.1); Protein, Total 7.7 g/dL (6.4-8.2); Sodium Level 135 mmol/L (136-145); Troponin (Emerg Dept Use Only) < 0.02 ng/mL (0.0-0.045)
--- NOTE | 2020-06-20 16:49 | RAD REPORT ---
EXAM DESCRIPTION: CT - Chest Abd Pelvis Wo Con - 06/20/2020 4:19 pm CLINICAL HISTORY: Cough;SOB, abdominal pain COMPARISON: No comparisons TECHNIQUE: During dynamic enhancement using 100 milliliters nonionic IV contrast, axial 5 millimeter thick images of the chest, abdomen and pelvis were obtained. Biphasic technique was utilized through the abdomen. No oral contrast administered. All CT scans are performed using dose optimization technique as appropriate and may include automated exposure control or mA/KV adjustment according to patient size. FINDINGS: Scattered interstitial scarring changes are present in the lung booth. A 5 millimeter sub pleural nodule is present in the anterolateral right lower lobe near the lung base. Minimal interstit ial and alveolar opacities are present in each posterior gutter probably atelectasis rather than infi ltrate. No worrisome mass lesion. No pneumothorax or pleural effusion. No chest wall mass or abnorma l axillary lymphadenopathy seen. Mediastinal and hilar regions show no mass or lymphadenopathy. No significant cardiac finding. Small 11 millimeter lymph node is present at the GE junction. [place] of the distal esophagus at the GE junction are slightly thickened. This may be part of a minimal hiatal hernia which can lower the felecia e between distal esophagus and stomach. No foreign body or retained food seen within the esophagus. The liver, spleen and pancreas show no significant findings. Gallbladder and biliary tree are normal . Renal function cannot be assessed on noncontrast study. Isodense masses and pyelonephritis are not ex cluded. The patient has a 12.3 centimeter cyst of the right kidney. There is a minimal amount of calc ification along the lateral inferior rim. Left kidney shows 2.2 cm upper pole, 3.7 cm lateral mid and 2.3 centimeter lateral lower pole left renal cysts. No adrenal abnormalities. No urinary bladder ab normalities. No dilated bowel loops or focal ball bowel wall thickening. No free air, free fluid or inflammatory stranding. Diverticulosis is minimal with no diverticulitis. Patient has bilateral fat filled inguin al hernias larger on the left. Mesh material is in place from prior umbilical hernia repair. No recur rence of the hernia is seen. No significant bone or vascular finding. Degenerative changes are present. 50% compression fracture o f L1 has a chronic appearance. IMPRESSION: No suspicious worrisome mass, consolidation or other acute CT chest finding. Scarring ch anges are present with a small 5 mm subpleural nodule on the right. Distal esophagus at the GE junction appears slightly thickened. The patient does appear to have a parag y small hiatal hernia which can blur the division between herniated stomach and distal esophagus. No asymmetric esophageal wall thickening, mass or intraluminal foreign body. No acute abdominal or pelvic finding. Nonacute findings are detailed in the body of the report.
--- NOTE | 2020-06-20 16:51 | RAD REPORT ---
EXAM DESCRIPTION: RAD - Chest Single View - 06/20/2020 4:24 pm CLINICAL HISTORY: SOB COMPARISON: Portable October 2019 TECHNIQUE: AP portable chest image was obtained 06/20/2020 4:24 pm . FINDINGS: Minimal scarring or atelectasis changes are present. No peripheral mass or consolidation. No failure or volume overload. Interstitial pattern is similar to comparison. Heart and vasculature are normal. No measurable pleural effusion and no pneumothorax. No acute bony abnormality seen. No acute aortic findings suspected. IMPRESSION: No acute cardiopulmonary process. No significant change from comparison.
[2020-06-20] MEDS ORDERED: FAMOTIDINE 20 MG/2 ML VIAL IV ONE (18:24)
--- NOTE | 2020-06-20 18:46 | EDPHYS ---
Physician Documentation [facility] Name: David Hernandez Age: 74 yrs Sex: Male : 1945 Arrival Date: 06/20/2020 Time: 15:23 Bed 8 Private MD: ED Physician Luis M Wen HPI: 06/21 07:28 This 74 yrs old Male presents to ER via Ambulatory with complaints of kdr Abdominal Pain, Chest Tightness, Shortness Of Breath. 07:28 The patient or guardian reports chest pain that is located primarily in the substernal kdr area, epigastric area. Onset: suddenly, last night. The pain does not radiate. Associated signs and symptoms: The patient has no apparent associated signs or symptoms. The chest pain is described as aching, burning. Duration: The patient or guardian reports a single episode, that is still ongoing, but improving. Modifying factors: The symptoms are alleviated by nothing. the symptoms are aggravated by Brought on by/when he was swallowing an apple. Much better now but still not feeling right.. Severity of pain: At its worst the pain was mild in the emergency department the pain is unchanged. The patient has not experienced similar symptoms in the past. The patient has not recently seen a physician. Initially when swallowing he had discomfort but now has improved. Historical: - Allergies: 06/20 15:47 No Known Allergies; ca1 - PMHx: 15:47 Asthma; COPD; Hyperlipidemia; Hypertension; CHF; ca1 - PSHx: 15:47 Heart stents; Knee surgery; Hernia repair; ca1 - Immunization history:: Adult Immunizations up to date. - Social history:: Smoking status: Patient denies any tobacco usage or history of. ROS: 06/21 07:28 Constitutional: Negative for fever, chills, and weight loss, Eyes: Negative for injury, kdr pain, redness, and discharge, Neck: Negative for injury, pain, and swelling, Respiratory: Negative for shortness of breath, cough, wheezing, and pleuritic chest pain, Back: Negative for injury and pain, : Negative for injury, bleeding, discharge, and swelling, MS/Extremity: Negative for injury and deformity, Skin: Negative for injury, rash, and discoloration, Neuro: Negative for headache, weakness, numbness, tingling, and seizure activity. Psych: Negative for depression, anxiety, suicide ideation, homicidal ideation, and hallucinations, Allergy/Immunology: Negative for hives, rash, and allergies, Endocrine: Negative for neck swelling, polydipsia, polyuria, polyphagia, and marked weight changes, Hematologic/Lymphatic: Negative for swollen nodes, abnormal bleeding, and unusual bruising. Cardiovascular: Positive for chest pain, with swallowing initially but improved now. Exam: 06/20 17:55 ECG was reviewed by the Attending Physician. kdr 06/21 07:28 Constitutional: This is a well developed, well nourished patient who is awake, alert, kdr and in no acute distress. Head/Face: Normocephalic, atraumatic. Eyes: Pupils equal round and reactive to light, extra-ocular motions intact. Lids and lashes normal. Conjunctiva and sclera are non-icteric and not injected. Cornea within normal limits. Periorbital areas with no swelling, redness, or edema. Neck: Trachea midline, no thyromegaly or masses palpated, and no cervical lymphadenopathy. Supple, full range of motion without nuchal rigidity, or vertebral point tenderness. No Meningismus. Chest/axilla: Normal chest wall appearance and motion. Nontender with no deformity. No lesions are appreciated. Cardiovascular: Regular rate and rhythm with a normal S1 and S2. No gallops, murmurs, or rubs. Normal PMI, no JVD. No pulse deficits. Respiratory: Lungs have equal breath sounds bilaterally, clear to auscultation and percussion. No rales, rhonchi or wheezes noted. No increased work of breathing, no retractions or nasal flaring. Abdomen/GI: Soft, non-tender, with normal bowel sounds. No distension or tympany. No guarding or rebound. No evidence of tenderness throughout. Back: No spinal tenderness. No costovertebral tenderness. Full range of motion. Skin: Warm, dry with normal turgor. Normal color with no rashes, no lesions, and no evidence of cellulitis. MS/ Extremity: Pulses equal, no cyanosis. Neurovascular intact. Full, normal range of motion. Neuro: Awake and alert, GCS 15, oriented to person, place, time, and situation. Cranial nerves II-XII grossly intact. Motor strength 5/5 in all extremities. Sensory grossly intact. Cerebellar exam normal. Normal gait. Psych: Awake, alert, with orientation to person, place and time. Behavior, mood, and affect are within normal limits. Vital Signs: 06/20 15:43 BP 91 / 60; Pulse 80; Resp 20 S; Temp 97.6; Pulse Ox 94% on R/A; Weight 108.86 kg (R); ca1 Height 5 ft. 9 in. (175.26 cm) (R); Pain 1/10; 16:29 BP 82 / 71; Pulse 78; Resp 19; Temp 97.9(O); Pulse Ox 95% on R/A; Pain 5/10; ks7 16:34 BP 102 / 68; Pulse 76; Resp 20; Pulse Ox 95% on R/A; Pain 5/10; ks7 17:27 BP 97 / 69; Pulse 62; Resp 19; Pulse Ox 96% ; jl7 17:54 BP 101 / 67; Pulse 64; Resp 20; Pulse Ox 96% on R/A; Pain 4/10; ks7 18:43 BP 124 / 77; Pulse 64; Resp 20; Temp 98(O); Pulse Ox 99% on R/A; Pain 0/10; ks7 19:36 BP 115 / 94; Pulse 71; Resp 18; Pulse Ox 98% on R/A; ea 15:43 Body Mass Index 35.44 (108.86 kg, 175.26 cm) ca1 MDM: 18:44 Patient medically screened. [facility] 06/21 07:28 Data reviewed: vital signs, nurses notes, lab test result(s), radiologic studies. kdr Counseling: I had a detailed discussion with the patient and/or guardian regarding: the historical points, exam findings, and any diagnostic results supporting the discharge/admit diagnosis, lab results, radiology results, the need for outpatient follow up. 06/20 15:43 Order name: Basic Metabolic Panel kdr 06/20 15:43 Order name: CBC with Diff kdr 06/20 15:43 Order name: LFT's kdr 06/20 15:43 Order name: Magnesium kdr 06/20 15:43 Order name: NT PRO-BNP; Complete Time: 16:28 kdr 06/20 15:43 Order name: PT-INR; Complete Time: 16:28 kdr 06/20 15:43 Order name: Troponin (emerg Dept Use Only); Complete Time: 16:28 kdr 06/20 15:43 Order name: COVID-19 [facility] 06/20 15:43 Order name: Flu; Complete Time: 18:29 [facility] 06/20 15:43 Order name: Strep; Complete Time: 18: [facility] 06/20 15:44 Order name: Basic Metabolic Panel; Complete Time: 16:28 [facility] 06/20 15:44 Order name: CBC with Automated Diff; Complete Time: 16: [facility] 06/20 15:44 Order name: Liver (Hepatic) Function; Complete Time: 16: [facility] 06/20 15:44 Order name: Magnesium; Complete Time: 16:28 [facility] 06/20 15:43 Order name: XRAY Chest (1 view); Complete Time: 18:29 [facility] 06/20 15:43 Order name: EKG; Complete Time: 15:44 [facility] 06/20 15:43 Order name: Cardiac monitoring; Complete Time: 15:54 [facility] 06/20 15:43 Order name: EKG - Nurse/Tech; Complete Time: 15:54 [facility] 06/20 15:43 Order name: IV Saline Lock; Complete Time: 15:54 [facility] 06/20 15:43 Order name: Labs collected and sent; Complete Time: 15:54 [facility] 06/20 15:43 Order name: O2 Per Protocol; Complete Time: 15:54 [facility] 06/20 15:43 Order name: O2 Sat Monitoring; Complete Time: 15:54 [facility] 06/20 15:43 Order name: Droplet/Contact Precautions; Complete Time: 16:06 [facility] 06/20 15:43 Order name: Notify Health Dept [phone]/ ; Complete Time: 16: [facility] 06/20 16:19 Order name: Chest Abd Pelvis Wo Con; Complete Time: 18: [facility] 06/20 16:55 Order name: Throat Culture EDMS EC/29 17:55 Rate is 74 beats/min. Rhythm is regular, Sinus Rhythm with No ectopy. QRS [place] is kdr Normal. SD interval is normal. QRS interval is normal. QT interval is normal. Clinical impression: NSR w/ Non-specific ST/T Changes. Administered Medications: No medications were administered Disposition: 06/20/20 18:44 Discharged to Home. Impression: Abdominal and pelvic pain, Shortness of breath. - Condition is Stable. - Discharge Instructions: Shortness of Breath, Vttc-[id number], Abdominal Pain, Adult, [id number]. - Medication Reconciliation Form, Thank You Letter form. - Follow up: Private Physician; When: 2 - 3 days; Reason: If symptoms return, Further diagnostic work-up, Recheck today's complaints, Continuance of care, Re-evaluation by your physician. - Problem is new. - Symptoms have improved. Signatures: Dispatcher [employer] [facility] Luis M Wen MD MD kdr Kin Corey RN RN mg2 Dariana Vee RN RN ca1 Corrections: (The following items were deleted from the chart) 16:19 15:44 Chest Abdomen Pelvis W Con+CT.RAD.BRZ ordered. [facility] 19:40 18:44 06/20/2020 18:44 Discharged to Home. Impression: Abdominal and pelvic pain; mg2 Shortness of breath. Condition is Stable. Forms are Medication Reconciliation Form, Thank You Letter, Antibiotic Education, Prescription Opioid Use. Follow up: Private Physician; When: 2 - 3 days; Reason: If symptoms return, Further diagnostic work-up, Recheck today's complaints, Continuance of care, Re-evaluation by your physician. Problem is new. Symptoms have improved. kdr
--- NOTE | 2020-06-20 18:46 | ER ---
Nurse's Notes [facility] Name: David Hernandez Age: 74 yrs Sex: Male : 1945 Arrival Date: 06/20/2020 Time: 15:23 Bed 8 Private MD: Diagnosis: Abdominal and pelvic pain;Shortness of breath Presentation: 06/20 15:43 Chief complaint: Patient states: last night, ate an apple, felt like it was stuck in my ca1 esophagus. Now been having intermittent upper abdominal pain with acid reflux taste in my mouth. Denies N/V/diarrhea. SOB is more than usual, and has O2 at home PRN. Coronavirus screen: Patient denies a cough. Patient reports shortness of breath or difficulty breathing. Patient denies measured and/or subjective temperature greater than 100.4F prior to today's visit. Patient denies travel on a cruise ship or to a country the [facility] currently lists as an affected area. Patient denies contact with known and/or suspected case of COVID-19. Patient instructed to continue to wear a mask when interacting with others. Patient moved to private room, placed in contact and droplet isolation with eye protection until further assessment. Dr. Wen at bedside. VO to put pt on DP. Ebola Screen: Patient negative for fever greater than or equal to 101.5 degrees Fahrenheit, and additional compatible Ebola Virus Disease symptoms Patient denies exposure to infectious person. Patient denies travel to an Ebola-affected area in the 21 days before illness onset. No symptoms or risks identified at this time. Initial Sepsis Screen: Does the patient meet any 2 criteria? No. Patient's initial sepsis screen is negative. Does the patient have a suspected source of infection? No. Patient's initial sepsis screen is negative. Risk Assessment: Do you want to hurt yourself or someone else? Patient reports no desire to harm self or others. Onset of symptoms was June 20, 2020. 15:43 Method Of Arrival: Ambulatory ca1 15:43 Acuity: EROS 3 ca1 Triage Assessment: 16:08 General: Appears in no apparent distress. uncomfortable, Behavior is calm, cooperative. ks7 Pain: Complains of pain in abdomen Pain currently is 5 out of 10 on a pain scale. Quality of pain is described as aching, pressure, Pain began 2-3 days ago. Is continuous. GI: Abdomen is round non-distended, Bowel sounds present X 4 quads. Reports bloating, Pain is 5 out of 10 on a pain scale. abd pain, sob x 2-3 days. Historical: - Allergies: 15:47 No Known Allergies; ca1 - PMHx: 15:47 Asthma; COPD; Hyperlipidemia; Hypertension; CHF; ca1 - PSHx: 15:47 Heart stents; Knee surgery; Hernia repair; ca1 - Immunization history:: Adult Immunizations up to date. - Social history:: Smoking status: Patient denies any tobacco usage or history of. Screenin:10 Abuse screen: Denies threats or abuse. Denies injuries from another. Nutritional ks7 screening: No deficits noted. Tuberculosis screening: No symptoms or risk factors identified. Fall Risk No fall in past 12 months (0 pts). Secondary diagnosis (15 points) IV access (20 points). Ambulatory Aid- None/Bed Rest/Nurse Assist (0 pts). Gait- Weak (10 pts.). Mental Status- Oriented to own ability (0 pts). Total Doss Fall Scale indicates Low Risk Score (25-44 pts). Side Rails Up X 2 Frequent Obs/Assesments occuring. Assessment: 16:10 GI: Abd is soft rounded. ks7 16:10 GI: Reports lower abdominal pain, upper abdominal pain. ks7 16:29 Respiratory: Breath sounds are coarse bilaterally. in left posterior upper lobe, right ks7 posterior upper lobe, left posterior lower lobe, right posterior middle lobe and right posterior lower lobe. GI: Bowel sounds present X 4 quads. Reports tightness in abd area. when asked what he feels when palpating his belly he stated "fat". 18:42 Reassessment: ambulation trial. pt sp02 100% as soon as he stood up oob. while walking ks7 and talking pt CARVAJAL and sp02 95%. pt ambulated independently and back in bed independently. 19:40 Reassessment: Patient denies pain at this time. Patient states feeling better. mg2 Vital Signs: 15:43 BP 91 / 60; Pulse 80; Resp 20 S; Temp 97.6; Pulse Ox 94% on R/A; Weight 108.86 kg (R); ca1 Height 5 ft. 9 in. (175.26 cm) (R); Pain 1/10; 16:29 BP 82 / 71; Pulse 78; Resp 19; Temp 97.9(O); Pulse Ox 95% on R/A; Pain 5/10; ks7 16:34 BP 102 / 68; Pulse 76; Resp 20; Pulse Ox 95% on R/A; Pain 5/10; ks7 17:27 BP 97 / 69; Pulse 62; Resp 19; Pulse Ox 96% ; jl7 17:54 BP 101 / 67; Pulse 64; Resp 20; Pulse Ox 96% on R/A; Pain 4/10; ks7 18:43 BP 124 / 77; Pulse 64; Resp 20; Temp 98(O); Pulse Ox 99% on R/A; Pain 0/10; ks7 19:36 BP 115 / 94; Pulse 71; Resp 18; Pulse Ox 98% on R/A; ea 15:43 Body Mass Index 35.44 (108.86 kg, 175.26 cm) ca1 ED Course: 15:23 Patient arrived in ED. as 15:32 Luis M Wen MD is Attending Physician. kdr 15:33 Josselin Berger, [facility] is Primary Nurse. ks7 15:46 Triage completed. ca1 15:47 Arm band placed on right wrist. ca1 16:06 Magnesium Sent. ks7 16:06 Liver (Hepatic) Function Sent. ks7 16:06 Basic Metabolic Panel Sent. ks7 16:07 COVID-19 Sent. ks7 16:07 Flu Sent. ks7 16:07 Strep Sent. ks7 16:07 Basic Metabolic Panel Sent. ks7 16:07 CBC with Diff Sent. ks7 16:07 LFT's Sent. ks7 16:07 Magnesium Sent. ks7 16:07 NT PRO-BNP Sent. ks7 16:07 PT-INR Sent. ks7 16:07 Troponin (emerg Dept Use Only) Sent. ks7 16:[address] ks7 16:10 Patient has correct armband on for positive identification. Placed in gown. Bed in low ks7 position. Call light in reach. Side rails up X2. 16:10 No provider procedures requiring assistance completed. Inserted saline lock: 20 gauge ks7 in left antecubital area, using aseptic technique. Blood collected. 16:20 Chest Abd Pelvis Wo Con In Process Unspecified. EDMS 16:24 XRAY Chest (1 view) In Process Unspecified. EDMS 19:36 IV discontinued, intact, bleeding controlled, No redness/swelling at site. Pressure ea dressing applied. Administered Medications: No medications were administered Outcome: 18:44 Discharge ordered by . kdr 19:40 Discharged to home ambulatory. mg2 19:40 Condition: stable 19:40 Discharge instructions given to patient, Instructed on discharge instructions, follow up and referral plans. Demonstrated understanding of instructions, follow-up care. 19:40 Patient left the ED. mg2 Addendum: 06/25/2020 11:48 Addendum: COVID-19 Result: Negative result given to RN to notify pt. Notified pt of d m5 negative COVID 19 swab results. Pt advised that even with a negative test result they should remain in isolation until symptom free for 3 days without medication. Pt also advised to return to the ED for worsening symptoms. Signatures: Dispatcher [employer] EDMS Aubrie Mcgee RN RN dm5 Luis M Wen MD MD kdr Martinez, Amelia as Leal, Jahala RN RN jl7 Shante Larsen RN RN ea Gardose, Michele, RN RN mg2 Dariana Vee RN RN ca1 Josselin Berger RN RN ks7 Corrections: (The following items were deleted from the chart) 06/20 15:47 15:43 Coronavirus screen: Patient denies a cough. Patient reports shortness of breath ca1 or difficulty breathing. Patient denies measured and/or subjective temperature greater than 100.4F prior to today's visit. Patient denies travel on a cruise ship or to a country the [facility] currently lists as an affected area. Patient denies contact with known and/or suspected case of COVID-19. Proceed with normal triage. ca1
[2020-06-20 20:08] VITALS: TEMP 98
[2020-06-20 20:10] VITALS: BP 115/94; O2SAT 98
== END 2020-06-20 19:40 | disposition home or self-care (01) ==
LOC: ER 15:21
DX: R06.02 Shortness of breath (principal); Z20.828 Contact with and (suspected) exposure to other viral communicable diseases; I10 Essential (primary) hypertension
CPT/HCPCS: 93005; 87070; 85025; 80048; 36415; 83735; 85610; 82565; 80076; 87081; 84484; 83880; 87804 ×2; 71250; 74176; 71045; 99284; U0001

== ENCOUNTER 2021-02-03 19:02 | Emergency (ER) | payer OTHER ==
[2021-02-03] MEDS ORDERED: ONDANSETRON 4 MG/2 ML VIAL ONE (20:12)
[2021-02-03] MEDS ORDERED: DIPHENHYDRAMINE 50 MG/ML VIAL ONE (20:12)
[2021-02-03] MEDS ORDERED: KETOROLAC 30 MG/ML INJ ONE (20:13)
--- NOTE | 2021-02-03 20:13 | RAD REPORT ---
EXAM DESCRIPTION: CT - Head Brain Wo Cont - 02/03/2021 8:07 pm CLINICAL HISTORY: PAIN, headache COMPARISON: No comparisons TECHNIQUE: Axial 5 mm thick images of the head were obtained without IV contrast. All CT scans are performed using dose optimization technique as appropriate and may include automated exposure control or mA/KV adjustment according to patient size. FINDINGS: No intracranial hemorrhage, mass, edema or shift of mid-line structures. No acute infarcti on changes seen. No abnormal extra-axial fluid collections. Patient has atrophy chronic ischemic rosenberg ges mild to moderate in degree. Ventricles are in proportion to the volume loss. Arterial and physiol ogic calcifications are present. Asymmetry is created by head tilt within the scanner. Mastoid air cells are clear. Mucosal thickening seen in the maxillary and sphenoid sinuses with sinus wall thickening. No acute bony findings. IMPRESSION: Atrophy and chronic ischemic changes are present without acute intracranial finding. Chronic maxillary and sphenoid sinusitis changes.
--- NOTE | 2021-02-03 22:23 | ER ---
Nurse's Notes [facility] Name: David Hernandez Age: 75 yrs Sex: Male : 1945 Arrival Date: 02/03/2021 Time: 19:06 Bed 17 Private MD: Diagnosis: Headache Presentation: 02/03 19:06 Chief complaint: EMS states: Severe headache and nausea x 3 weeks. Coronavirus screen: Client presents with at least one sign or symptom that may indicate coronavirus-19. Standard/surgical mask placed on the client. Provider contacted for isolation considerations. Ebola Screen: No symptoms or risks identified at this time. Initial Sepsis Screen: Does the patient meet any 2 criteria? No. Patient's initial sepsis screen is negative. Does the patient have a suspected source of infection? No. Patient's initial sepsis screen is negative. Risk Assessment: Do you want to hurt yourself or someone else? Patient reports no desire to harm self or others. Onset of symptoms was January 14, 2021. 19:06 Method Of Ar[facility] 19:06 Acuity: EROS 3 Triage Assessment: 19:30 Pain: Pain currently is 7 out of 10 on a pain scale. Pain began 3 weeks ago Also wh complains of nausea. 19:30 Headache History: The patient has had previous headaches and this one is similar to wh previous episodes. General: Appears in no apparent distress. uncomfortable. Historical: - Allergies: 19:09 No Known Allergies; hb - PMHx: 19:09 Asthma; COPD; Hyperlipidemia; CHF; Hypertension; hb - PSHx: 19:09 Heart stents; Knee surgery; Hernia repair; hb - Immunization history:: Adult Immunizations up to date. - Social history:: Smoking status: Patient denies any tobacco usage or history of. Screenin:30 Abuse screen: Denies threats or abuse. Denies injuries from another. Nutritional screening: No deficits noted. Tuberculosis screening: No symptoms or risk factors identified. Fall Risk None identified. Assessment: 19:15 General: Appears in no apparent distress. uncomfortable, Behavior is calm, cooperative, wh appropriate for age. Pain: Complains of pain in headache. Neuro: Level of Consciousness is awake, alert, obeys commands, Oriented to person, place, time, situation, Appropriate for age [place] are equal bilaterally Moves all extremities. Speech is normal, Facial symmetry appears normal, Pupils are PERRLA, Reports headache. Cardiovascular: Heart tones S1 S2. Respiratory: Reports cough that is Uses O2 at home Airway is patent Respiratory effort is even, unlabored, Respiratory pattern is regular, symmetrical, Breath sounds are diminished. GI: Abdomen is round non-distended, Reports nausea. : No signs and/or symptoms were reported regarding the genitourinary system. EENT: No signs and/or symptoms were reported regarding the EENT system. Derm: Skin is intact. Musculoskeletal: Circulation, motion, and sensation intact. 21:00 Reassessment: Patient appears in no apparent distress at this time. No changes from previously documented assessment. Patient and/or family updated on plan of care and expected duration. Pain level reassessed. Patient is alert, oriented x 3, equal unlabored respirations, skin warm/dry/pink. Patient states feeling better. Patient states symptoms have improved. 22:30 Reassessment: Patient appears in no apparent distress at this time. Patient and/or family updated on plan of care and expected duration. Pain level reassessed. Patient is alert, oriented x 3, equal unlabored respirations, skin warm/dry/pink. Pt for DC awaiting poultry picker from [place]. Vital Signs: 19:06 BP 148 / 90; Pulse 94; Resp 20; Temp 98.2; Pulse Ox 94% on 2 lpm NC; Pain 10/10; hb 20:00 BP 147 / 66; Pulse 90; Resp 20; Pulse Ox 94% on 2 lpm NC; 21:30 BP 108 / 55; Pulse 88; Resp 20; Pulse Ox 98% on 2 lpm NC; 22:30 BP 124 / 68; Pulse 84; Resp 20; Pulse Ox 98% on 2 lpm NC; Trenary Coma Score: 02/04 05:01 Eye Response: spontaneous(4). Verbal Response: oriented(5). Motor Response: obeys tw4 commands(6). Total: 15. ED Course: 02/03 19:06 Patient arrived in ED. hb 19:08 Triage completed. hb 19:09 Arm band placed on. hb 19:10 Feroz Keller MD is Attending Physician. tw4 19:30 Patient has correct armband on for positive identification. Bed in low position. Call light in reach. Side rails up X 1. Pulse ox on. NIBP on. 19:31 Kuldip Capone, RN is Primary Nurse. 19:48 Inserted saline lock: 20 gauge in right antecubital area, using aseptic technique. ea 22:40 No provider procedures requiring assistance completed. IV discontinued, intact, bleeding controlled, No redness/swelling at site. Administered Medications: 20:00 Drug: Benadryl 25 mg Route: IVP; Site: right antecubital; ea 22:41 Follow up: Response: No adverse reaction 20:01 Drug: TORadol 30 mg Route: IVP; Site: right antecubital; ea 22:41 Follow up: Response: No adverse reaction; Pain is decreased 20:01 Drug: Zofran (Ondansetron) 4 mg Route: IVP; Site: right antecubital; ea 22:41 Follow up: Response: No adverse reaction :41 Follow up: Response: Nausea is decreased Outcome: 22:23 Discharge ordered by tw4 23:43 Patient left the ED. Signatures: Baylee Chen RN [facility] Shante Larsen RN Kuldip Phoenix ea, RN Feroz Jerome MD MD tw4 Corrections: (The following items were deleted from the chart) 21:36 21:00 Reassessment: Patient appears in no apparent distress at this time. No changes wh from previously documented assessment. Patient and/or family updated on plan of care and expected duration. Pain level reassessed. Patient is alert, oriented x 3, equal unlabored respirations, skin warm/dry/pink.
--- NOTE | 2021-02-03 22:23 | EDPHYS ---
Physician Documentation [facility] Name: David Hernandez Age: 75 yrs Sex: Male : 1945 Arrival Date: 02/03/2021 Time: 19:06 Bed 17 Private MD: ED Physician Feroz Keller HPI: 02/03 22:45 This 75 yrs old Male presents to ER via EMS with complaints of Headache, tw4 Nausea. 22:45 The patient complains of pain to the top of head and forehead. The patient describes tw4 the headache as pounding, a pressure. Onset: The symptoms/episode began/occurred 3 week(s) ago, and became worse yesterday. Associated signs and symptoms: Pertinent positives: nausea, Pertinent negatives: altered mental status, dizziness, fever, neck stiffness, paresthesias, Photophobia rash, sinus congestion, sinus tenderness, vision changes, vision loss. Severity of symptoms: At its worst the pain was moderate, in the emergency department the pain is unchanged. Headache History: Denies prior headaches. The symptoms are alleviated by nothing. the symptoms are aggravated by nothing. The patient has not experienced similar symptoms in the past. Historical: - Allergies: 19:09 No Known Allergies; hb - PMHx: 19:09 Asthma; COPD; Hyperlipidemia; CHF; Hypertension; hb - PSHx: 19:09 Heart stents; Knee surgery; Hernia repair; hb - Immunization history:: Adult Immunizations up to date. - Social history:: Smoking status: Patient denies any tobacco usage or history of. ROS: 22:45 Constitutional: Negative for fever, chills, and weight loss, Eyes: Negative for injury, tw4 pain, redness, and discharge, Cardiovascular: Negative for chest pain, palpitations, and edema, Respiratory: Negative for shortness of breath, cough, wheezing, and pleuritic chest pain, Abdomen/GI: Negative for abdominal pain, nausea, vomiting, diarrhea, and constipation, MS/Extremity: Negative for injury and deformity, Skin: Negative for injury, rash, and discoloration. 22:45 Neuro: Positive for headache, Negative for altered mental status, dizziness, gait disturbance, numbness, seizure activity, speech changes, syncope, near syncope, tinnitus, tremor, visual changes, weakness. Exam: 22:45 Constitutional: This is a well developed, well nourished patient who is awake, alert, tw4 and in no acute distress. Head/Face: Normocephalic, atraumatic. Chest/axilla: Normal chest wall appearance and motion. Nontender with no deformity. No lesions are appreciated. Cardiovascular: Regular rate and rhythm with a normal S1 and S2. No gallops, murmurs, or rubs. Normal PMI, no JVD. No pulse deficits. Respiratory: Lungs have equal breath sounds bilaterally, clear to auscultation and percussion. No rales, rhonchi or wheezes noted. No increased work of breathing, no retractions or nasal flaring. Abdomen/GI: Soft, non-tender, with normal bowel sounds. No distension or tympany. No guarding or rebound. No evidence of tenderness throughout. Back: No spinal tenderness. No costovertebral tenderness. Full range of motion. Skin: Warm, dry with normal turgor. Normal color with no rashes, no lesions, and no evidence of cellulitis. MS/ Extremity: Pulses equal, no cyanosis. Neurovascular intact. Full, normal range of motion. Neuro: Awake and alert, GCS 15, oriented to person, place, time, and situation. Cranial nerves II-XII grossly intact. Motor strength 5/5 in all extremities. Sensory grossly intact. Cerebellar exam normal. Normal gait. Vital Signs: 19:06 BP 148 / 90; Pulse 94; Resp 20; Temp 98.2; Pulse Ox 94% on 2 lpm NC; Pain 10/10; hb 20:00 BP 147 / 66; Pulse 90; Resp 20; Pulse Ox 94% on 2 lpm NC; wh 21:30 BP 108 / 55; Pulse 88; Resp 20; Pulse Ox 98% on 2 lpm NC; wh 22:30 BP 124 / 68; Pulse 84; Resp 20; Pulse Ox 98% on 2 lpm NC; wh Dez Coma Score: 02/04 05:01 Eye Response: spontaneous(4). Verbal Response: oriented(5). Motor Response: obeys tw4 commands(6). Total: 15. MDM: 02/03 20:46 Patient medically screened. tw4 02/04 05:01 Differential diagnosis: cluster headache, intracerebral hemorrhage, migraine, neoplasm, tw4 subarachnoid bleed, subdural hematoma, temporal arteritis, tension headache. Data reviewed: vital signs, nurses notes. Data reviewed: radiologic studies, CT scan. Data interpreted: Pulse oximetry: Interpretation: normal. Counseling: I had a detailed discussion with the patient and/or guardian regarding: the historical points, exam findings, and any diagnostic results supporting the discharge/admit diagnosis, radiology results. Medication response: Toradol relieved patient's pain. The symptoms have resolved. Response to treatment: the patient's symptoms have resolved after treatment, and as a result, I will discharge patient. Special discussion: I discussed with the patient/guardian in detail that at this point there is no indication for admission to the hospital. It is understood, however, that if the symptoms persist or worsen the patient needs to return immediately for re-evaluation. 02/03 19:23 Order name: CT Head Brain wo Cont tw4 02/03 20:14 Order name: CT; Complete Time: 22:22 EDMS Administered Medications: 02/03 20:00 Drug: Benadryl 25 mg Route: IVP; Site: right antecubital; ea 22:41 Follow up: Response: No adverse reaction wh 20:01 Drug: TORadol 30 mg Route: IVP; Site: right antecubital; ea 22:41 Follow up: Response: No adverse reaction; Pain is decreased wh 20:01 Drug: Zofran (Ondansetron) 4 mg Route: IVP; Site: right antecubital; ea 22:41 Follow up: Response: No adverse reaction wh 22:41 Follow up: Response: Nausea is decreased wh Disposition: 02/03/21 22:23 Discharged to Home. Impression: Headache. - Condition is Stable. - Discharge Instructions: General Headache Without Cause, Migraine Headache. - Prescriptions for Fiorinal 50- 325-40 mg Oral Capsule - take 1 capsule by ORAL route every 4 hours As needed - not to exceed 6 capsules per day; 20 capsule. Ibuprofen 800 mg Oral Tablet - take 1 tablet by ORAL route every 8 hours As needed take with food; 30 tablet. Zofran 4 mg Oral Tablet - take 1 tablet by ORAL route every 12 hours As needed; 6 tablet. - Medication Reconciliation Form, Thank You Letter, Antibiotic Education, Prescription Opioid Use form. - Follow up: Private Physician; When: Upon discharge from the Emergency Department; Reason: Recheck today's complaints, Continuance of care, Re-evaluation by your physician. - Problem is new. - Symptoms have improved. Signatures: Dispatcher [employer] EDMS Baylee Chen RN Shante Mosquera RN Kuldip Phoenix ea, RN RN wh Wadley, Terrence, MD MD tw4 Corrections: (The following items were deleted from the chart) 23:43 22:23 02/03/2021 22:23 Discharged to Home. Impression: Headache. Condition is Stable. wh Forms are Medication Reconciliation Form, Thank You Letter, Antibiotic Education, Prescription Opioid Use. Follow up: Private Physician; When: Upon discharge from the Emergency Department; Reason: Recheck today's complaints, Continuance of care, Re-evaluation by your physician. Problem is new. Symptoms have improved. tw4
[2021-02-04] MEDS ORDERED: KETOROLAC 30 MG/ML INJ ONE (00:27)
[2021-02-04 18:33] VITALS: TEMP 98.2
[2021-02-04 18:49] VITALS: BP 108/55; O2SAT 98
== END 2021-02-03 23:43 | disposition home or self-care (01) ==
LOC: ER 19:02
DX: R51.9 Headache, unspecified (principal); I10 Essential (primary) hypertension; Z95.818 Presence of other cardiac implants and grafts
CPT/HCPCS: 70450; J1200; J2405; 96374; 96375; 99284

== ENCOUNTER 2024-07-19 15:10 | Inpatient (IN) | payer MEDICARE ==
--- OUTSIDE RECORDS SUMMARY | 2024-07-19 15:13 | XMS REPORT | Continuity of Care Document ---
Author Name Unknown Address [address] [facility] [address] [place] [id number] [facility] Address [address] [facility] [address] [place] [address] Care Team Providers Care Food And Drug Research Scientist Name Role Phone Angy English Attending Clinician Luis M Fermin Attending Clinician Gala Mae Attending Clinician Piedad Wheeler Attending Clinician Payers Payer Name Policy Type Policy Number Effective Date Expirati on Date Source [facility] (MEDICARE REPLACEMENT HMO) [id number] 2023 00:00:00 Medications Ordered Medication Name Filled Medication Name Start Date Stop Date Current Medication? Ordering Clinician Indication Dosage Frequency Signature (SIG) Comments Components Source fluticasone propionate 50 mcg/act suspension fluticasone propionate 50 mcg/act suspension Yes [facility] ADVAIR HFA 115-21 MCG/ACT AEROSOL ADVAIR HFA 115-21 MCG/ACT AEROSOL Yes [facility] SYNTHROID 100 MCG TABLET SYNTHROID 100 MCG TABLET Yes [facility] carvedilol 6.25 mg tablet carvedilol 6.25 mg tablet Yes [facility] albuterol sulfate hfa 108 (90 base) mcg/act aerosol soln albuterol sulfate hfa 108 (90 base) mcg/act aerosol soln Yes [facility] brimonidine tartrate 0.2 % solution brimonidine tartrate 0.2 % solution Yes [facility] clopidogrel bisulfate 75 mg tablet clopidogrel bisulfate 75 mg tablet Yes [facility] omeprazole [address] omeprazole [address] Yes [facility] atorvastati n calcium 20 mg tablet atorvastati n calcium 20 mg tablet Yes [facility] fluticasone propionate 50 mcg/act suspension fluticasone propionate 50 mcg/act suspension Yes [facility] ADVAIR HFA 115-21 MCG/ACT AEROSOL ADVAIR HFA 115-21 MCG/ACT AEROSOL Yes [facility] SYNTHROID 100 MCG TABLET SYNTHROID 100 MCG TABLET Yes [facility] carvedilol 6.25 mg tablet carvedilol 6.25 mg tablet Yes [facility] albuterol sulfate hfa 108 (90 base) mcg/act aerosol soln albuterol sulfate hfa 108 (90 base) mcg/act aerosol soln Yes [facility] brimonidine tartrate 0.2 % solution brimonidine tartrate 0.2 % solution Yes [facility] clopidogrel bisulfate 75 mg tablet clopidogrel bisulfate 75 mg tablet Yes [facility] omeprazole [address] omeprazole [address] Yes [facility] atorvastati n calcium 20 mg tablet atorvastati n calcium 20 mg tablet Yes [facility] Encounters Start Date/Time End Date/Time Encounter Type Admission Type Attending [facility] Facility Care Department Encounter ID Source 2024-06-27 14:00:00 2024-06-27 14:45:00 [facility] COPD Follow-up Angy English [id number] [facility] 2024-06-27 09:00:00 2024-06-27 09:45:00 [facility] COPD Follow-up Angy English DEV DEV [id number] [facility] 2024-06-09 13:00:00 2024-06-09 14:00:00 [facility] COPD Assessment Angy English [id number] [facility] 2024-06-09 08:00:00 2024-06-09 09:00:00 [facility] COPD Assessment Klaudianee Amador DEV DEV [id number] [facility] 2024-05-20 12:30:00 2024-05-20 13:00:00 Care Radha Fermin [id number] [facility] 2023-12-24 21:00:00 2023-12-24 22:00:00 Initial Paulino Mae [id number] [id number] [facility] 2023-09-30 17:30:00 2023-09-30 18:00:00 Care Radha Wheeler [id number] [facility] 2023-09-21 00:00:00 2023-09-21 00:00:00 Outpatient DMG DM [id number] [facility] Notes Date/Time Note Provider Source 2024-06-27 09:00:00 Members Preferred Language Venezuelan Patient Currently Located in their home state of [place], YES Assessment and Plan: Member contacted by phone for today's scheduled visit with [facility]. HIPAA verified and informed that call would be recorded for quality review purposes. See full visit documentation for details on COPD symptoms, vitals, and education discussed today. COPD History Subjective: Member is a 78 yo male with a 20 year history of second hand smoke. Member is [facility] [place]. Member also lives near chemical pollution. Member is currently on O2 as needed. Member has been informed that [facility] may send "check-in" SMS messages while the member is enrolled in the COPD Specialty Care Clinic.COPD Program Enrollment Date: 05/27/2024OP Action Plan Zone today: [facility] Assessment: 94% O2GOLD Severity Classification: EMMRC grade upon enrollment: 2CAT score upon enrollment: 17CAT score upon graduation:Peak Flow: 280. 260, 280Pulmonologist: [place] doctor 04/2024 COPD exacerbation events prior to enrollment:- Hospital: 2 [date] [reason for admission] - Outpatient: 2 [date], [details]Active Smoker: [Y/N] N - RN plan for next visitShane DIRECTOR OF GOVERNMENT SALES visit -action plan ### HISTORY OF PRESENT ILLNESS PAST MEDICAL HISTORY (*completed during inital 30 days) Medical conditions: 05/20/2024 Chronic obstructive pulmonary disease with (acute) exacerbation [J441] Start: 09/30/2023 05/04/2024 Coronary heart disease [[id number]] Start: 02/26/2016 05/04/2024 Chronic respiratory failure (disorder) [[id number]] Start: 04/08/2022 05/04/2024 Chronic kidney disease, stage 4 (severe) [N184] Start: 11/03/2023 05/04/2024 Atherosclerotic heart disease of [place] coronary artery without angina pectoris [I2510] Start: 12/24/2023 05/04/2024 Polyneuropathy, unspecified [G629] Start: 05/04/2024 12/24/2023 Gastro-esophageal reflux disease without esophagitis [K219] Start: 12/24/2023 12/24/2023 Dependence on supplemental oxygen [Z9981] Start: 12/24/2023 06/16/2019 Multiple pulmonary nodules [[id number]] Start: 06/16/2019 11/24/2018 Chronic obstructive bronchitis [J44.9] Start: 11/24/2018 COPD history description: Subjective: Member is a 78 yo male with a 20 year history of second hand smoke. Member is established with a [facility] Specialist at the [place]. Member also lives near chemical pollution. Member is currently on O2 as needed. Member has been informed that [facility] may send "check-in" SMS messages while the member is enrolled in the COPD Specialty Care Clinic. Estimated years with disease: 20 Date of [facility]: 2024-06-09 Please assess degree of baseline functional disability due to dyspnea: Walks slower than people of the same age because of dyspnea or has to stop for breath when walking at own pace Outpatient exacerbations in the last 12 months: Yes Number of Outpatient Exacerbations Stays: 2 or more Other notes on COPD History: Member exposed to second hand smoke for around 20 years. Member states he also has horrible chemical pollution COPD ASSESSMENT TEST (CAT) Signs or symptoms of an acute exacerbation of COPD?: No MEDICATION Notable Medication Details: Member is also prescribed Spiriva Respimat 2.5 mg 2 puffs daily Member's understanding of medications: Fair Is the patient using more than one controller inhaler?: Yes GOLD Class E (2 exacerbations or hospitalization in last year)?: Yes Is the patient on triple therapy (LABA/LAMA/ICS)?: Yes COPD VITALS 280 L/Min Pulse Oximeter: Yes Oxygen saturation: 94% Heart Rate: 78 Does patient use supplemental oxygen?: Yes Supplemental O2 Delivery Method: Nasal Cannula Oxygen Use: PRN Supplmental O2 Source (select all that apply): home concentrator Feet: 5 Inches: 9 COPD TEAM Transition Specialist name: [facility] COPD EDUCATION Medication: Yes Controller Maintenance Medications: Yes Inhaler Education: Inhaler technique education performed during today s visit. Patient exhibited appropriate understanding and was able to perform teach-back.: Yes Quick-relief 'Rescue' medications: Yes ? Member has been prescribed a COPD Rescue Pack by a [facility]?: NO Walking & Activity Tolerance: Yes Energy Conservation: Yes Pursed Lip and Diaphragmatic Breathing: Yes Contingency Planning (KNOW YOUR ZONE): Yes Do you have a contingency plan (symptoms to monitor, who to call, what actions to take): Yes Did [facility] COPD program help you to establish a contingency plan?: Yes Do you have prescriptions and medications on hand to enact your plan?: No Phlegm Management: Yes Active Cycle Breathing Technique (ACBT) to aid in mobilizing secretions: Yes Avoid/Limit foods that increase phlegm viscosity (i.e. dairy, sugar, etc): Yes Hydration -maintaining appropriate hydration to aid in thinning secretions: Yes COPD ASSESSMENT & PLAN no change from baseline noted: Yes Signs or symptoms of an acute exacerbation of COPD?: No RN SCREENING FOR COPD RESCUE PACK APPROPRIATENESS Non-adherence to maintenance COPD Regimen: Yes History of chronic steroid use: No History of Heart Failure: No History of CKD stage IV or V: Yes 2 or more Antibiotics in last 90 days: No Missed 2 or more scheduled [facility] visits: No Patient verbalized understanding related to condition and treatment plan. All questions and concerns addressed.: Yes Angy English [facility] 2024-06-09 08:00:00 Members Preferred Language Venezuelan Patient Currently Located in their home state of [place], YES Assessment and Plan: Member contacted for enrollment. HIPAA verified. Notified that the call is recorded. Initial COPD assessment completed with Member today. Member is AAOx4, speaking in clear and complete sentences. Member is knowledgeable on COPD history and motivated to participate in the [facility] COPD Program. Green Zone and vital signs are within normal limit. Member is a GOLD class E, COPD Admissions 2, COPD exacerbation 2, MMRC Grade 2, CAT score 17, and currently in the green zone. Welcome packet will be sent to Member's home this week. COD information given. ### HISTORY OF PRESENT ILLNESS PAST MEDICAL HISTORY (*completed during inital 30 days) Medical conditions: 05/20/2024 Chronic obstructive pulmonary disease with (acute) exacerbation [J441] Start: 09/30/2023 05/04/2024 Coronary heart disease [[id number]] Start: 02/26/2016 05/04/2024 Chronic respiratory failure (disorder) [[id number]] Start: 04/08/2022 05/04/2024 Chronic kidney disease, stage 4 (severe) [N184] Start: 11/03/2023 05/04/2024 Atherosclerotic heart disease of [place] coronary artery without angina pectoris [I2510] Start: 12/24/2023 05/04/2024 Polyneuropathy, unspecified [G629] Start: 05/04/2024 12/24/2023 Gastro-esophageal reflux disease without esophagitis [K219] Start: 12/24/2023 12/24/2023 Dependence on supplemental oxygen [Z9981] Start: 12/24/2023 06/16/2019 Multiple pulmonary nodules [[id number]] Start: 06/16/2019 11/24/2018 Chronic obstructive bronchitis [J44.9] Start: 11/24/2018 COPD history description: Subjective: Member is a 78 yo male with a 20 year history of second hand smoke. Member is established with a Transition Specialist at the [place]. Member also lives near chemical pollution. Member is currently on O2 as needed. Member has been informed that [facility] [employer] may send "check-in" SMS messages while the member is enrolled in the COPD Specialty Care Clinic. Estimated years with disease: 20 Date of [facility]: 2024-06-09 Please assess degree of baseline functional disability due to dyspnea: Walks slower than people of the same age because of dyspnea or has to stop for breath when walking at own pace Tobacco Smoke: Yes Air Pollutants: Yes Hospitalized in the last 12 months: No Outpatient exacerbations in the last 12 months: Yes Number of Outpatient Exacerbations Stays: 2 or more Other notes on COPD History: Member exposed to second hand smoke for around 20 years. Member states he also has horrible chemical pollution COPD Past Medical History Completed: Yes SOCIAL HISTORY Tell me about your current living situation today:: Apartment Do you live alone?: Yes Do you have issues with reliable transportation to get to appointments, food, shopping, etc.?: No Food insecurity?: No Housing insecurity?: No Patient's support system (e.g. family, friends, caretakers): Hvac Installation Technician, Neighbors, Friends COPD ASSESSMENT TEST (CAT) Date of CAT: 2024-06-09 Cough: 3 Phlegm: 3 Chest Tightness: 3 Breathlessness: 4 Activities: 0 ('I am not limited doing any activities at home') Confidence: 0 ('I am confident leaving home despite my lung condition') Sleep: 1 Energy: 3 Please copy and paste the BASELINE CAT Score below: 17 Signs or symptoms of an acute exacerbation of COPD?: No MEDICATION Notable Medication Details: Member is also prescribed Spiriva Respimat 2.5 mg Member's understanding of medications: Fair Is the patient using more than one controller inhaler?: Yes GOLD Class E (2 exacerbations or hospitalization in last year)?: Yes Is the patient on triple therapy (LABA/LAMA/ICS)?: Yes Do you have prescriptions and/or medications on hand to enact your action plan (e.g. antibiotics/steroids/nebulized solutions)?: No COPD VITALS Pulse Oximeter: No Does patient use supplemental oxygen?: Yes Supplemental O2 Delivery Method: Nasal Cannula Oxygen Use: PRN Supplmental O2 Source (select all that apply): home concentrator Feet: 5 Inches: 9 COPD TEAM Transition Specialist name: [facility] COPD ASSESSMENT & PLAN no change from baseline noted: Yes Signs or symptoms of an acute exacerbation of COPD?: No Patient verbalized understanding related to condition and treatment plan. All questions and concerns addressed.: Yes CARE COORDINATION, REFERRALS, AND SCHEDULING Mail: Yes Angy English [facility]
[2024-07-19 15:46] LABS: Absolute Basophils 0.1 K/uL (0-0.5); Absolute Eosinophils 0.8 K/uL (0-0.5); Absolute Lymphocytes (CBC) 2.8 K/uL (0.7-4.9); Absolute Monocytes 1.1 K/uL (0.1-1.3); Absolute Neutrophil 7.7 K/uL (1.8-8.0); Basophils % 0.7 % (0-1.3); Eosinophils % 6.1 % (0-4.4); Hematocrit 48.3 % (39.6-49.0); Hemoglobin 15.7 g/dL (13.6-17.9); Lymphocytes % 22.8 % (15.3-44.8); MCH 29.7 pg (27.0-35.0); MCHC 32.5 g/dL (32.0-36.0); MCV 91.4 fL (80-100); MPV 7.8 fL (7.6-11.3); Monocytes % 8.5 % (3.3-12.3); Neutrophils % 61.9 % (41.7-73.7); Platelets 394 thou/uL (152-406); RBC Red Blood Cell Count 5.28 M/uL (4.33-5.43); Red Cell Distribution Width 14.9 % (12.1-15.2)
[2024-07-19 15:51] LABS: PT Prothrombin Time 11.1 SECONDS (9.4-12.5); Protime INR 0.99
[2024-07-19 16:05] LABS: ALT/SGPT 42 U/L (16-61); AST/SGOT 17 U/L (15-37); Albumin/Globulin Ratio 0.8 (1.1-1.8); Alkaline Phosphatase 91 U/L (45-117); Anion Gap 8.4 mEq/L (5.0-15.0); BUN Blood Urea Nitrogen 27 mg/dL (7-18); Bicarbonate 29 mEq/L (21-32); Bilirubin Total 0.3 mg/dL (0.2-1.0); Globulin 4.8 g/dL (2.3-3.5); Glomerular Filtration Rate 31 ml/min (=/>90); Glucose Level 96 mg/dL (74-106); Magnesium 2.1 mg/dL (1.6-2.4); NT PRO-BNP 53 pg/mL (<450); Potassium 4.4 mEq/L (3.5-5.1); Protein, Total 8.8 g/dL (6.4-8.2); Sodium Level 134 mEq/L (136-145); Troponin High Sensitivity 11.6 pg/mL (<58.9)
[2024-07-19 16:14] LABS: Bilirubin Direct < 0.2 mg/dL (0-0.2); Bilirubin Indirect, Calculated 0.1 mg/dL (0.2-0.8)
[2024-07-19] MEDS ORDERED: NA CHLORIDE 0.9% 250 ML ONE (17:00)
[2024-07-19] MEDS ORDERED: VANCOMYCIN 1 GM/VIAL ONE (17:00)
[2024-07-19] MEDS ORDERED: NA CHLORIDE 0.9% 100 ML ONE (17:00)
[2024-07-19] MEDS ORDERED: CEFEPIME 1 GM/VIAL ONE (17:00)
--- NOTE | 2024-07-19 17:16 | EDPHYS ---
Physician Documentation [facility] Name: David Hernandez Age: 78 yrs Sex: Male : 1945 Arrival Date: 07/19/2024 Time: 15:10 Bed 16 Private MD: ED Physician Janiya Hernandez HPI: 07/19 16:48 This 78 yrs old Male presents to ER via Wheelchair with complaints of Shortness Of sp3 Breath, Congestion. 16:48 78-year-old male with history of COPD, CHF, prior [place], hypertension, hyperlipidemia, sp3 recent admission in [facility] for pneumonia now presents to the ED for recurrent symptoms, cough, hypoxia. Patient distally went to Dr. Mcdonnell office and was evaluated and sent to the ED for admission. Pulse oxygenation while sleeping is 86% and on room air was 91% at triage. Vital signs otherwise are normal. Patient states he has a productive cough. He denies any chest pain, fever, headache, neck pain, abdominal pain, nausea, vomiting, diarrhea, rash, leg swelling, or any other signs or symptoms on ROS at this time.. Historical: - Allergies: 15:29 No Known Allergies; kc6 - PMHx: 15:29 Hypertension; Hyperlipidemia; Asthma; CHF; COPD; Myocardial infarction; kc6 - PSHx: 15:29 Stented artery; kc6 - Immunization history:: Client reports having NOT received the Covid vaccine. Flu vaccine is up to date. - Infectious Disease History:: Denies. - Social history:: Smoking status: Patient denies any tobacco usage or history of. ROS: 16:49 Constitutional: Negative for fever, chills, and weight loss, Eyes: Negative for injury, sp3 pain, redness, and discharge, ENT: Negative for injury, pain, and discharge, Neck: Negative for injury, pain, and swelling, Cardiovascular: Negative for chest pain, palpitations, and edema, Abdomen/GI: Negative for abdominal pain, nausea, vomiting, diarrhea, and constipation, Back: Negative for injury and pain, MS/Extremity: Negative for injury and deformity, Skin: Negative for injury, rash, and discoloration, Neuro: Negative for headache, weakness, numbness, tingling, and seizure, 16:49 All other systems are negative, Exam: 16:50 Constitutional: This is a well developed, well nourished patient who is awake, alert, sp3 and in no acute distress. Head/Face: Normocephalic, atraumatic. Eyes: Pupils equal round and reactive to light, extra-ocular motions intact. Lids and lashes normal. Conjunctiva and sclera are non-icteric and not injected. Cornea within normal limits. Periorbital areas with no swelling, redness, or edema. Neck: Trachea midline, no thyromegaly or masses palpated, and no cervical lymphadenopathy. Supple, full range of motion without nuchal rigidity, or vertebral point tenderness. No Meningismus. Chest/axilla: Normal chest wall appearance and motion. Nontender with no deformity. No lesions are appreciated. Cardiovascular: Regular rate and rhythm with a normal S1 and S2. No gallops, murmurs, or rubs. Normal PMI, no JVD. No pulse deficits. Abdomen/GI: Soft, non-tender, with normal bowel sounds. No distension or tympany. No guarding or rebound. No evidence of tenderness throughout. Back: No spinal tenderness. No costovertebral tenderness. Full range of motion. Skin: Warm, dry with normal turgor. Normal color with no rashes, no lesions, and no evidence of cellulitis. MS/ Extremity: Pulses equal, no cyanosis. Neurovascular intact. Full, normal range of motion. Neuro: Awake and alert, GCS 15, oriented to person, place, time, and situation. Cranial nerves II-XII grossly intact. Motor strength 5/5 in all extremities. Sensory grossly intact. Cerebellar exam normal. Normal gait. Psych: Awake, alert, with orientation to person, place and time. Behavior, mood, and affect are within normal limits. 16:50 Respiratory: Coarse breath sounds bilaterally, 16:50 ECG was reviewed by the Attending Physician. EKG demonstrates normal sinus rhythm at 85 sp3 bpm with normal intervals, normal QRS, normal axis, normal ST's ST segments without evidence of acute ischemia. Vital Signs: 15:26 BP 115 / 69; Pulse 84; Resp 19 S; Temp 98(O); Pulse Ox 91% on R/A; Weight 111.58 kg kc6 (R); Height 5 ft. 9 in. (R); Pain 0/10; 16:00 BP 156 / 72; Pulse 71; Resp 18; Pulse Ox 98% on R/A; mb9 17:31 BP 135 / 95; Pulse 73; Resp 18; Temp 98.7; Pulse Ox 98% 2 lpm ; dd2 20:00 BP 139 / 77; Pulse 71; Resp 18; Temp 97.1; Pulse Ox 99% ; pc2 15:26 Body Mass Index 36.33 (111.58 kg, 175.26 cm) kc6 15:26 Pain Scale: Adult kc6 MDM: 15:26 Patient medically screened. sp3 16:50 Data reviewed: vital signs, nurses notes, old medical records, lab test result(s), EKG, sp3 radiologic studies. 16:51 ED course: 78-year-old male with pneumonia versus CHF versus COPD exacerbation. sp3 Outpatient x-ray performed 2 view demonstrates positive infiltrate. Given recent hospitalization we will treat as nosocomial infection. Cefepime and vancomycin have been ordered after cultures. Vital signs remain normal. Oxygen supplementation as needed. Will place in admission under hospitalist service.. 07/19 15:26 Order name: Basic Metabolic Panel; Complete Time: 16:15 sp3 07/19 15:26 Order name: CBC with Diff; Complete Time: 16:13 sp3 07/19 15:26 Order name: LFT's; Complete Time: 16:15 sp3 07/19 15:26 Order name: Magnesium; Complete Time: 16:15 sp3 07/19 15:26 Order name: NT PRO-BNP; Complete Time: 16:15 sp3 07/19 15:26 Order name: PT-INR; Complete Time: 16:13 sp3 07/19 15:26 Order name: Troponin HS; Complete Time: 16:15 sp3 07/19 17:14 Order name: Blood Culture Adult (2) dd2 07/19 17:14 Order name: Lactate w/ 2H reflex if indic.; Complete Time: 17:52 dd2 07/19 18:47 Order name: Thyroid Stimulating Hormone EDMS 07/19 18:47 Order name: CBC with Automated Diff EDMS 07/19 18:47 Order name: CBC with Automated Diff EDMS 07/19 18:47 Order name: CBC with Automated Diff EDMS 07/19 18:47 Order name: CBC with Automated Diff EDMS 07/19 18:47 Order name: Comprehensive Metabolic Panel EDMS 07/19 18:47 Order name: Comprehensive Metabolic Panel EDMS 07/19 18:47 Order name: Comprehensive Metabolic Panel [facility] 07/19 18:47 Order name: Comprehensive Metabolic Panel [facility] 07/19 18:47 Order name: Lipid Profile EDMS 07/19 18:47 Order name: Lipid Profile EDMS 07/19 18:47 Order name: Magnesium EDMS 07/19 18:47 Order name: Magnesium EDMS 07/19 18:47 Order name: Magnesium EDMS 07/19 18:47 Order name: Magnesium [facility] 07/19 18:47 Order name: Sputum Culture [facility] 07/19 18:50 Order name: Procalcitonin [facility] 07/19 22:04 Order name: T4 Free [facility] 07/19 18:47 Order name: Echo with Doppler [facility] 07/19 18:47 Order name: Vent Perfusion VQ Scan [facility] 07/19 15:26 Order name: EKG; Complete Time: 15:27 sp3 07/19 15:26 Order name: Cardiac monitoring; Complete Time: 15:56 sp3 07/19 15:26 Order name: EKG - Nurse/Tech; Complete Time: 15:41 sp3 07/19 15:26 Order name: IV Saline Lock; Complete Time: 15:41 sp3 07/19 15:26 Order name: Labs collected and sent; Complete Time: 15:41 sp3 07/19 15:26 Order name: O2 Per Protocol; Complete Time: 15:56 sp3 07/19 15:26 Order name: O2 Sat Monitoring; Complete Time: 15:56 sp3 Administered Medications: 17:30 Drug: Cefepime IVPB 1 grams IVPB at 200 ml/hr once over 30 mins; (mix in NS 100 mL) dd2 Route: IVPB; Rate: 200 ml/hr; Infused Over: 30 mins; Site: right antecubital; 17:45 Follow up: Response: No adverse reaction dd2 18:05 Follow up: Response: No adverse reaction; IV Status: Completed infusion; IV Intake: dd2 110ml 17:30 Drug: vancoMYCIN IVPB 1 grams IVPB once over 2 hrs Route: IVPB; Infused Over: 2 hrs; dd2 Site: left antecubital; 17:45 Follow up: Response: No adverse reaction dd2 19:30 Follow up: IV Status: Completed infusion; IV Intake: 250ml pc2 Disposition Summary: 08/27/24 17:16 Hospitalization Ordered Notes: Hospitalization Status: Inpatient Admission sp3 Provider: Chevy Newman sp3 Condition: Stable sp3 Problem: an acute exacerbation sp3 Symptoms: have worsened sp3 Bed/Room Type: Standard sp3 Location: Telemetry/MedSurg (Inpatient)(07/19/24 21:02) ty Room Assignment: [facility](07/19/24 21:02) ty Diagnosis - Pneumonia, hypoxia sp3 Forms: - Medication Reconciliation Form sp3 - SBAR form sp3 - Leadership Thank You Letter sp3 Signatures: Dispatcher [employer] EDMS Alexandra Guerra Setul, MD MD sp3 Frances Nunez RN RN kc6 Josh Burt DIANA, RN RN dd2 Janina Reeves RN pc2 Corrections: (The following items were deleted from the chart) 15:29 15:27 Chest Single View+RAD.RAD.BRZ ordered. EDMS EDMS 18:50 18:50 Lactate w/ 2H reflex if indic. ordered. EDMS EDMS 18:55 17:16 Telemetry/MedSurg (Inpatient) sp3 bd 18:55 17:16 sp3 bd 21:02 18:55 [facility] ER HOLD bd ty 21:02 18:55 ERHOLD- bd ty
--- NOTE | 2024-07-19 17:16 | ER ---
Nurse's Notes [facility] Name: David Hernandez Age: 78 yrs Sex: Male : 1945 Arrival Date: 07/19/2024 Time: 15:10 Bed 16 Private MD: Diagnosis: Pneumonia, hypoxia Presentation: 07/19 15:26 Chief complaint: Patient states: SOB and congestion x1mo. states he was admitted to [address] for pneumonia and sent home antibiotics. Coronavirus screen: At this time, the client does not indicate any symptoms associated with coronavirus-19. Ebola Screen: No symptoms or risks identified at this time. Initial Sepsis Screen: Does the patient meet any 2 criteria? No. Patient's initial sepsis screen is negative. Does the patient have a suspected source of infection? No. Patient's initial sepsis screen is negative. Risk Assessment: Do you want to hurt yourself or someone else? Patient reports no desire to harm self or others. Onset of symptoms was July 19, 2024. 15:26 Method Of Arrival: [facility] 15:26 Acuity: EROS 3 [facility] Historical: - Allergies: 15:29 No Known Allergies; [facility] - PMHx: 15:29 Hypertension; Hyperlipidemia; Asthma; CHF; COPD; Myocardial infarction; [facility] - PSHx: 15:29 Stented artery; [facility] - Immunization history:: Client reports having NOT received the Covid vaccine. Flu vaccine is up to date. - Infectious Disease History:: Denies. - Social history:: Smoking status: Patient denies any tobacco usage or history of. Screenin:11 [facility] ED Fall Risk Assessment (Adult) History of falling in the last 3 months, dd2 including since admission No falls in past 3 months (0 pts) Confusion or Disorientation No (0 pts) Intoxicated or Sedated No (0 pts) Impaired Gait No (0 pts) Mobility Assist Device Used No (0 pt) Altered Elimination No (0 pt) Score/Fall Risk Level 0 - 2 = Low Risk Oriented to surroundings, Maintained a safe environment, Educated pt \T\ family on fall prevention, incl call for assistance when getting out of bed, Hourly rounding (assess needs \T\ fall precautionary measures) done. Abuse screen: Denies threats or abuse. Nutritional screening: No deficits noted. Tuberculosis screening: No symptoms or risk factors identified. Assessment: 16:11 Reassessment: Assumed care of pt. General: Appears ill, Behavior is calm, cooperative. dd2 Pain: Denies pain. Neuro: Level of Consciousness is awake, alert, obeys commands, Oriented to person, place, time, situation, Moves all extremities. Cardiovascular: Reports shortness of breath, Patient's skin is warm and dry. Respiratory: Reports shortness of breath cough that is productive, Airway is patent Respiratory effort is with retractions, Breath sounds with crackles bilaterally. Breath sounds with wheezes bilaterally. GI: Abdomen is non-distended, Abd is soft and non tender X 4 quads. : No deficits noted. EENT: No deficits noted. Derm: Skin is dry, Skin temperature is warm. Musculoskeletal: Range of motion: intact in all extremities. 16:16 Cardiovascular: Rhythm is sinus rhythm with PACs. dd2 Vital Signs: 15:26 BP 115 / 69; Pulse 84; Resp 19 S; Temp 98(O); Pulse Ox 91% on R/A; Weight 111.58 kg kc6 (R); Height 5 ft. 9 in. (R); Pain 0/10; 16:00 BP 156 / 72; Pulse 71; Resp 18; Pulse Ox 98% on R/A; mb9 17:31 BP 135 / 95; Pulse 73; Resp 18; Temp 98.7; Pulse Ox 98% 2 lpm ; dd2 20:00 BP 139 / 77; Pulse 71; Resp 18; Temp 97.1; Pulse Ox 99% ; pc2 15:26 Body Mass Index 36.33 (111.58 kg, 175.26 cm) kc6 15:26 Pain Scale: Adult kc6 ED Course: 15:15 Patient arrived in ED. mr 15:15 Janiya Hernandez MD is Attending Physician. sp3 15:29 Triage completed. kc6 15:29 Note: 2 view chest xray as an out patient today at 1500. az 15:29 Arm band placed on. kc6 15:41 Basic Metabolic Panel Sent. bc6 15:41 CBC with Diff Sent. bc6 15:41 LFT's Sent. bc6 15:41 Magnesium Sent. bc6 15:41 NT PRO-BNP Sent. bc6 15:41 PT-INR Sent. bc6 15:41 Troponin HS Sent. bc6 15:41 Initial lab(s) drawn, by me, sent to lab. Inserted saline lock: 20 gauge in right bc6 antecubital area, using aseptic technique. Blood collected. Flushed with 10 mL NS. 15:56 SEGUNDO CAMARGO, RN is Primary Nurse. dd2 16:11 Patient has correct armband on for positive identification. Bed in low position. Call dd2 light in reach. Side rails up X2. Provided Education on: call light, labs, procedures. Client placed on continuous cardiac and pulse oximetry monitoring. NIBP monitoring applied. monitoring and evaluation advisor on. Door closed. Warm blanket given. Pillow given. 16:11 No provider procedures requiring assistance completed. dd2 17:15 Chevy Newman MD is Hospitalizing Provider. sp3 17:20 First set of blood cultures drawn. dd2 17:25 Blood Culture Adult (2) Sent. dd2 17:25 Lactate w/ 2H reflex if indic. Sent. dd2 17:25 Inserted saline lock: 20 gauge in left antecubital area, using aseptic technique. Blood dd2 collected. Flushed with 10 mL NS. 18:04 Patient admitted, IV remains in place. mb9 Administered Medications: 17:30 Drug: Cefepime IVPB 1 grams IVPB at 200 ml/hr once over 30 mins; (mix in NS 100 mL) dd2 Route: IVPB; Rate: 200 ml/hr; Infused Over: 30 mins; Site: right antecubital; 17:45 Follow up: Response: No adverse reaction dd2 18:05 Follow up: Response: No adverse reaction; IV Status: Completed infusion; IV Intake: dd2 110ml 17:30 Drug: vancoMYCIN IVPB 1 grams IVPB once over 2 hrs Route: IVPB; Infused Over: 2 hrs; dd2 Site: left antecubital; 17:45 Follow up: Response: No adverse reaction dd2 19:30 Follow up: IV Status: Completed infusion; IV Intake: 250ml pc2 Medication: 16:11 VIS not applicable for this client. dd2 Intake: 18:05 IV: 110ml; Total: 110ml. dd2 19:30 IV: 250ml; Total: 360ml. pc2 Outcome: 17:16 Decision to Hospitalize by Provider. sp3 23:46 Admitted to Med/surg accompanied by tech, via wheelchair, room 415, with oxygen, with pc2 chart, 23:46 Condition: stable 23:46 Instructed on the need for admit, Demonstrated understanding of instructions, 23:46 Patient left the ED. pc2 Signatures: Susi Goss, Obinna Yeboah mr Dion, Janiya Perez MD MD sp3 Frances Nunez RN RN kc6 Aydee, Susi Caicedo, RN RN mb9 Christine Michael6 Janina Reeves, RN RN pc2 SEGUNDO CAMARGO RN RN dd2
--- NOTE | 2024-07-19 18:27 | P.HP ---
Certification for Inpatient Patient admitted to: Inpatient With expected LOS: >2 Midnights <Esther Brice - Last Filed: 07/19/24 18:22> Patient History Date of Service: 07/19/24 Reason for admission: COPD with lower respiratory tract infection, hypoxia, CKD, CHF History of Present Illness: Mr. Hernandez is a 78-year-old male with history of COPD, CHF, prior KS, hypertension, hyperlipidemia, recent admission in [facility] for pneumonia now presents to the ED for recurrent symptoms, cough, hypoxia. Pt states he was taking Augmentin and Zithromax. State he has a cough productive of white sputum. Pt does have home oxygen and uses 2L regularly. Denies fever, edema, syncope. Blood cultures and lactate were drawn in the emergency department. Cefepime and vancomycin started. As patient has recent travel, recent admission, hypoxia, and history of CKD and CHF, we will admit and have a VQ scan and echo in the morning. Home medications list reviewed: Yes (Patient cannot verify) - Past Medical/Surgical History Diabetic: No -: COPD -: Asthma -: HTN -: Hyperlipidemia -: KS -: Hernia repair -: corporal tunnel -: eric cataract surgery -: Cardiac stent -: knee replacement Psychosocial/ Personal History: Just returned from his son's wedding in [place]. - Family History Family History: Reviewed- Non-Contributory - Family History Mother -: Lung disease, Cancer Notes: skin cancer and respiratory issues (was a long time smoker per pt) Sister -: Cancer Notes: melanoma - Social History Smoking Status: Never smoker Alcohol use: Yes CD- Drugs: No Caffeine use: Yes Place of Residence: Home <Esther Brice - Last Filed: 07/19/24 18:22> Date of Service: 07/19/24 <Chevy Newman - Last Filed: 07/19/24 19:19> Allergies No Known Allergies Allergy (Verified 03/13/17 02:37) Home Medications: Aspirin [Aspirin EC 81 MG] 81 mg PO DAILY 03/13/17 Atorvastatin Calcium 80 mg PO DAILY 03/13/17 Clopidogrel Bisulfate [Plavix] 75 mg PO DAILY 03/13/17 Latanoprost Ophth [Xalatan 0.005%*] 1 gtt EACH EYE BEDTIME 03/13/17 Levothyroxine [Synthroid*] 100 mcg PO DAILY 03/13/17 Roflumilast [Daliresp*] 500 mcg PO DAILY 03/13/17 carvediloL [Carvedilol] 12.5 mg PO BID 03/13/17 lisinopriL [Lisinopril] 5 mg PO DAILY 03/13/17 Albuterol Sulfate [Proair Respiclick] 90 mcg IH Q6HP PRN 10/18/18 Albuterol Sulfate [Albuterol Sulfate 0.083% Neb Soln] 2.5 mg IH QID PRN #90 ml 10/19/18 Fluticasone Propionate [Flonase Allergy Relief] 1 spray NS BID #1 spray.susp 10/19/18 Azithromycin Tab [Zithromax*] 250 mg PO DAILY #4 tab 11/06/19 Tiotropium [Spiriva Handihaler] 18 mcg IH DAILY #1 cap.w.dev 11/06/19 predniSONE [Deltasone] 10 mg PO BID #10 tab 11/06/19 Review of Systems 10-point ROS is otherwise unremarkable Respiratory: Cough, Shortness of Breath, SOB with Excertion, Sputum <Brice,Esther Kwabena - Last Filed: 07/19/24 18:22> Physical Examination - Vital Signs Blood Pressure: 115/69 Pulse: 84 Respirations: 22 Pulse Ox (%): 99 (2.5L) - Physical Exam General: Alert, In no apparent distress, Oriented x3, Obese HEENT: Atraumatic, Normocephalic Neck: Supple Respiratory: Crackles/rales, Expiratory wheezes Cardiovascular: Normal pulses, Regular rate/rhythm, Other (Pressure soft) Capillary refill: <2 Seconds Gastrointestinal: Soft and benign Musculoskeletal: No clubbing Integumentary: No rashes Neurological: Normal speech, Normal tone, Normal affect Lymphatics: No axilla or inguinal lymphadenopathy External genitalia: Deferred Rectal: Deferred - Studies Laboratory Data (last 24 hrs) 07/19/24 07/19/24 07/19/24 15:40 15:40 15:40 WBC 12.40 H Hgb 15.7 Hct 48.3 Plt Count 394 PT 11.1 INR 0.99 Sodium 134 L Potassium 4.4 BUN 27 H Creatinine 2.15 H Glucose 96 Magnesium 2.1 Total Bilirubin 0.3 AST 17 ALT 42 Alkaline Phosphatase 91 <Esther Bricelen - Last Filed: 07/19/24 18:22> - Studies Laboratory Data (last 24 hrs) 07/19/24 07/19/24 07/19/24 15:40 15:40 15:40 WBC 12.40 H Hgb 15.7 Hct 48.3 Plt Count 394 PT 11.1 INR 0.99 Sodium 134 L Potassium 4.4 BUN 27 H Creatinine 2.15 H Glucose 96 Magnesium 2.1 Total Bilirubin 0.3 AST 17 ALT 42 Alkaline Phosphatase 91 <Chevy Newman Yunior - Last Filed: 07/19/24 19:19> Assessment and Plan - Plan Pneumonia with failed outpatient therapy COPD exacerbation Recent travel (hospitalized in [place] for pneumonia from 07/02/2024 to 07/07/2024) Blood cultures Lactate Procalcitonin IV antibiotics Steroids (IV and inhaled) Spiriva Dulera O2 as needed (patient on 2 L O2 at home) Nebs VQ scan in a.m. Heparin 5000 units subcu every 8h CKD Monitor and trend Gentle hydration Patient does not know his regular medication Will obtain list Echo Carvedilol -hold for soft BP for now Hold lisinopril secondary to CKD Plavix 75 p.o. daily Atorvastatin 40 mg p.o. daily VTE/GI prophylaxis - Advance Directives Does patient have a Living Will: Yes Does patient have a Durable POA for Healthcare: Yes Time Spent Managing Pts Care (In Minutes): 55 <Esther Brice Kwabena - Last Filed: 07/19/24 18:22> - Plan Pt seen and examined. I agree with the note by the HYDROLOGIST. Pt is a 78 yo male with past medical history of Htn, HLD, asthma, COPD and CHF, and CAD s/p KS who presents with shortness of breath and congestion. Of note, pt was recently treat ed for pneumonia at [place], [place] from to 07/07/24 and later discharged with augmentin and prednisone. At home, he continued to have cough and hypoxia which made him to visit his PCP today and he was sent to the ER for evaluation. ON admission, lab studies show wbc 12.4, Hgb 15.7, K 4.4, Cr 2.17 and glucose 96. At bedside, pt is in NAD. He reports oxygen saturation of 86% while asleep. A/P: Sepsis 2/2 HCAP: Pt was recently treated for pneumonia in [place], [place]. Will start broad spectrum abx. F/u blood cx and lactate. Htn: Continue home med HLD: statin Hx of COPD: Continue steroid, duoneb and oxygen. Will consult Pulm Acute resp failure with hypoxia: Likely due to COPD or pna. Will also f/u V/Q scan to r/o PE. Hx of CHF: Continue home med and monitor volume status Hx of CAD: Continue home meds. Morbid obesity: Pt was advised to lose weight. DVT ppx: SCD Code: full <Chevy Newman - Last Filed: 07/19/24 19:19>
[2024-07-19] MEDS ORDERED: ACETAMINOPHEN 500 MG TAB PO PRN (18:29)
[2024-07-19] MEDS ORDERED: SODIUM CHLORIDE 0.9% 10ML INJ IV PRN (18:46)
[2024-07-19] MEDS: IPRATROPIUM BROM 0.5MG/2.5ML NEB SCH (19:00)
[2024-07-19] MEDS: ALBUTEROL 2.5 MG/3 ML NEB SOL NEB SCH (19:00)
[2024-07-19] MEDS ORDERED: VANCOMYCIN IVPB ONE (20:00)
[2024-07-19] MEDS ORDERED: NA CHLORIDE 0.9% IVPB ONE (20:00)
[2024-07-19] MEDS: DULERA 100/5 (MOMETASONE/FORMOTEROL) INHALER IH SCH (21:00)
[2024-07-19 21:50] LABS: Thyroid Stimulating Hormone 4.54 uIU/mL (0.358-3.740)
[2024-07-19 23:41] VITALS: BMI 36.3
[2024-07-20] MEDS: ATORVASTATIN 40 MG TAB PO SCH (00:21)
[2024-07-20] MEDS: PANTOPRAZOLE 40 MG INJ IVP SCH (00:22)
[2024-07-20] MEDS: Meropenem 1,000 MG in NA CHLORIDE 0.9% 100 ML IV SCH (00:22)
[2024-07-20] MEDS: HEPARIN 5000 UNIT/ML 1 ML VIAL SQ SCH (00:22)
[2024-07-20] MEDS: METHYLPREDNISOLONE 40 MG INJ IV SCH (00:22)
[2024-07-20] MEDS: VANCOMYCIN 1 GM in NA CHLORIDE 0.9% 250 ML IVPB ONE (00:23)
[2024-07-20] MEDS: NA CHLORIDE 0.9% 1,000 ML IV SCH (00:23)
[2024-07-20 06:56] LABS: Absolute Monocytes 0.1 K/uL (0.1-1.3); Absolute Neutrophil 6.7 K/uL (1.8-8.0); Basophils % 0.2 % (0-1.3); Eosinophils % 0.2 % (0-4.4); Hematocrit 42.5 % (39.6-49.0); Hemoglobin 13.9 g/dL (13.6-17.9); Lymphocytes % 12.6 % (15.3-44.8); MCH 30.4 pg (27.0-35.0); MCHC 32.7 g/dL (32.0-36.0); MCV 92.9 fL (80-100); MPV 8.3 fL (7.6-11.3); Monocytes % 0.8 % (3.3-12.3); Neutrophils % 86.2 % (41.7-73.7); Platelets 313 thou/uL (152-406); RBC Red Blood Cell Count 4.57 M/uL (4.33-5.43); Red Cell Distribution Width 15.3 % (12.1-15.2)
[2024-07-20 07:14] LABS: Albumin 3.2 g/dL (3.4-5.0); Albumin/Globulin Ratio 0.8 (1.1-1.8); Anion Gap 9.1 mEq/L (5.0-15.0); Bilirubin Total 0.2 mg/dL (0.2-1.0); Potassium 5.1 mEq/L (3.5-5.1); Protein, Total 7.2 g/dL (6.4-8.2)
--- NOTE | 2024-07-20 08:15 | RAD REPORT ---
EXAM DESCRIPTION: NM - Vent Perfusion VQ Scan - 07/20/2024 8:04 am CLINICAL HISTORY: Shortness of breath COMPARISON: July 19, 2024 chest x-ray TECHNIQUE: 18.2 Mci [id number] was administered by inhalation. First breath, equilibrium, and washout images of the lungs obtained 7.1 millicuries Technetium-99 MAA was administered intravenously. Anterior, posterior, lateral and ob lique views of the lungs were taken. FINDINGS: The lungs demonstrate relatively homogeneous radiotracer activity on ventilation and perfu edvin sequences. No mismatched segmental or lobar perfusion defects are seen. IMPRESSION: No evidence of a pulmonary embolus
[2024-07-20] MEDS: TIOTROPIUM 5 SPRAYS/INHALER IH SCH (09:28)
[2024-07-20] MEDS: CLOPIDOGREL 75 MG TABLET PO SCH (09:36)
[2024-07-20] MEDS: ALBUTEROL 2.5 MG/3 ML NEB SOL NEB ONE (10:02)
[2024-07-20 10:38] LABS: Blood Morphology Comment NOT SEEN (NOT SEEN); Platelet Estimate ADEQ; White Blood Cell Scan OK (OK)
--- NOTE | 2024-07-20 11:59 | P.PN ---
Subjective Date of Service: 07/20/24 Chief Complaint: COPD with lower respiratory tract infection, hypoxia, CKD, CHF Pt is resting comfortably in bed. He feels a little congested. The wheezing has improved. Continue iv abx. No other complaints. Review of Systems General: Unremarkable Eyes: Unremarkable ENT: Unremarkable Respiratory: Unremarkable Cardiovascular: Unremarkable Gastrointestinal: Unremarkable Genitourinary: Unremarkable Musculoskeletal: Unremarkable Integumentary: Unremarkable Neurological: Unremarkable Lymphatics: Unremarkable Physical Examination - Vital Signs Temperature: 97.1 F Blood Pressure: 135/67 Pulse: 72 Respirations: 18 Pulse Ox (%): 94 - Physical Exam General: Alert, In no apparent distress, Oriented x3 HEENT: Atraumatic, Normocephalic, PERRLA Neck: Supple, 2+ carotid pulse no bruit, JVD not distended Respiratory: Clear to auscultation bilaterally, Normal air movement Cardiovascular: No edema, Normal pulses, Regular rate/rhythm Capillary refill: <2 Seconds Gastrointestinal: Normal bowel sounds, Soft and benign, Non-distended Musculoskeletal: No clubbing, No swelling, No contractures Integumentary: No rashes, No breakdown, No significant lesion Neurological: Normal gait, Normal speech, Normal strength at 5/5 x4 extr Lymphatics: No axilla or inguinal lymphadenopathy - Studies Laboratory Data (last 24 hrs) 07/19/24 07/19/24 07/19/24 15:40 15:40 15:40 WBC 12.40 H Hgb 15.7 Hct 48.3 Plt Count 394 PT 11.1 INR 0.99 Sodium 134 L Potassium 4.4 BUN 27 H Creatinine 2.15 H Glucose 96 Magnesium 2.1 Total Bilirubin 0.3 AST 17 ALT 42 Alkaline Phosphatase 91 Assessment And Plan - Plan Sepsis 2/2 HCAP: Pt was recently treated for pneumonia in [place], [place]. Will start iv vanc and merrem. F/u blood cx. lactate is 0.8. Htn: Continue home med HLD: statin Hx of COPD: Continue steroid, duoneb and oxygen. Will consult Pulm Acute resp failure with hypoxia: Likely due to COPD or pna. Will also f/u V/Q scan to r/o PE. Hx of CHF: Continue home med and monitor volume status Hx of CAD: Continue home meds. Morbid obesity: Pt was advised to lose weight. DVT ppx: SCD Code: full Dispo: Pending hospital course
[2024-07-20] MEDS ORDERED: VANCOMYCIN 2 GM in NA CHLORIDE 0.9% 500 ML IVPB SCH (18:00)
[2024-07-20] MEDS: GUAIFENESIN 600 MG SA TAB PO SCH (20:30)
[2024-07-21 06:45] LABS: Absolute Lymphocytes (CBC) 1.5 K/uL (0.7-4.9); Absolute Monocytes 0.5 K/uL (0.1-1.3); Absolute Neutrophil 12.7 K/uL (1.8-8.0); Basophils % 0.2 % (0-1.3); Hematocrit 39.8 % (39.6-49.0); Hemoglobin 12.9 g/dL (13.6-17.9); Lymphocytes % 10.1 % (15.3-44.8); MCHC 32.4 g/dL (32.0-36.0); MCV 92.5 fL (80-100); MPV 8.5 fL (7.6-11.3); Monocytes % 3.2 % (3.3-12.3); Neutrophils % 86.5 % (41.7-73.7); Platelets 310 thou/uL (152-406)
[2024-07-21 06:52] LABS: Albumin 3.1 g/dL (3.4-5.0); Albumin/Globulin Ratio 0.8 (1.1-1.8); Bilirubin Total 0.3 mg/dL (0.2-1.0); Globulin 3.9 g/dL (2.3-3.5); Magnesium 2.1 mg/dL (1.6-2.4)
--- NOTE | 2024-07-21 12:57 | EKG ---
Test Date: 2024-07-19 Test Time: 15:45:41 Domestic Violence Advocate: MALA MEASUREMENT RESULTS: Intervals: Rate: 85 OR: 146 QRSD: 82 QT: 380 QTc: 452 [place]: P: 58 OR: 146 QRS: 69 T: 63 INTERPRETIVE STATEMENTS: Sinus rhythm with premature atrial complexes Otherwise normal ECG Compared to ECG 06/20/2020 15:50:26 Atrial premature complex(es) now present Myocardial infarct finding no longer present Electronically Signed On 07-21-24 12:55:32 CDT by Lucio Baez
--- NOTE | 2024-07-21 13:35 | ECHO ---
HEIGHT: 5 ft 9 in WEIGHT: 246 lb 0 oz DATE OF STUDY: 07/21/[address]: Esther Brice OPERATIONS TEAM LEADER-BC 2-DIMENSIONAL: YSE M.MODE: YES DOPPLER: YES COLOR FLOW: YES TDS: NO PORTABLE: YES DEFINITY: NO BUBBLE STUDY: NO DIAGNOSIS: SUSPECT CONGESTIVE HEART FAILURE CARDIAC HISTORY: CATHERIZATION:YES SURGERY: NO PROSTHETIC VALVE: NO PACEMAKER: NO MEASUREMENTS (cm) DIASTOLIC (NORMALS) SYSTOLIC (NORMALS) IVSd 1.5 (0.6-1.2) LA Diam 3.3 (1.9-4.0) LVEF 55% LVIDd 4.2 (3.5-5.7) LVIDs 3.0 (2.0-3.5) %FS 28% LVPWd 1.4 (0.6-1.2) Ao Diam 2.8 (2.0-3.7) 2 DIMENSIONAL ASSESSMENT: RIGHT ATRIUM: NORMAL LEFT ATRIUM: NORMAL RIGHT VENTRICLE: NORMAL LEFT VENTRICLE: NORMAL TRICUSPID VALVE: NORMAL MITRAL VALVE: NORMAL PULMONIC VALVE: NORMAL AORTIC VALVE: NORMAL PERICARDIAL EFFUSION: NONE AORTIC ROOT: NORMAL LEFT VENTRICULAR WALL MOTION: NORMAL DOPPLER/COLOR FLOW: GRADE I DIASTOLIC DYSFUNCTION. COMMENTS: 1. NORMAL LEFT VENTRICULAR SYSTOLIC FUNCTION. LEFT VENTRICULAR EJECTION FRACTION 60-65%. NORMAL WALL MOTION. 2. GRADE I DIASTOLIC DYSFUNCTION. 3. NORMAL FILLING PRESSURE. TECHNOLOGIST: RUBÉN DALY
--- NOTE | 2024-07-21 14:04 | P.PN ---
Subjective Date of Service: 07/21/24 Chief Complaint: COPD with lower respiratory tract infection, hypoxia, CKD, CHF Pt is resting comfortably in bed. He is feeling a little better. The wheezing has improved. Continue iv abx. No other complaints. Review of Systems General: Unremarkable Eyes: Unremarkable ENT: Unremarkable Respiratory: SOB with Excertion Cardiovascular: Unremarkable Gastrointestinal: Unremarkable Genitourinary: Unremarkable Musculoskeletal: Unremarkable Integumentary: Unremarkable Neurological: Unremarkable Lymphatics: Unremarkable Physical Examination - Vital Signs Temperature: 97.8 F Blood Pressure: 153/72 Pulse: 71 Respirations: 17 Pulse Ox (%): 94 - Physical Exam General: Alert, In no apparent distress, Oriented x3 HEENT: Atraumatic, Normocephalic, PERRLA Neck: Supple, 2+ carotid pulse no bruit, JVD not distended Respiratory: Clear to auscultation bilaterally, Normal air movement Cardiovascular: No edema, Normal pulses, Regular rate/rhythm, Normal S1 S2 Capillary refill: <2 Seconds Gastrointestinal: Normal bowel sounds, Soft and benign, Non-distended Musculoskeletal: No clubbing, No swelling, No contractures Integumentary: No rashes, No breakdown, No significant lesion Neurological: Normal gait, Normal speech, Normal strength at 5/5 x4 extr, Normal tone Lymphatics: No axilla or inguinal lymphadenopathy Assessment And Plan - Plan Sepsis 2/2 HCAP: Pt was recently treated for pneumonia in [place], [place]. Will start iv vanc and merrem. F/u blood cx. lactate is 0.8. Hypokalemia: K is 5. Will monitor. Htn: Continue home med HLD: statin Hx of COPD: Continue steroid, duoneb and oxygen. Will consult Pulm Acute resp failure with hypoxia: Likely due to COPD or pna. Will also f/u V/Q scan to r/o PE. Hx of CHF: Continue home med and monitor volume status Hx of CAD: Continue home meds. Morbid obesity: Pt was advised to lose weight. DVT ppx: SCD Code: full Dispo: Pending hospital course
[2024-07-21] MEDS: VANCOMYCIN 2 GM in NA CHLORIDE 0.9% 500 ML IVPB SCH (17:26)
[2024-07-21] MEDS: Mupirocin NASAL 2 APPL/1 GM TUBE NAS SCH (20:58)
[2024-07-21] MEDS: LABETALOL 20 MG/4ML SYRINGE IV PRN (21:44)
[2024-07-22 06:36] LABS: Absolute Lymphocytes (CBC) 1.5 K/uL (0.7-4.9); Absolute Monocytes 0.5 K/uL (0.1-1.3); Absolute Neutrophil 13.6 K/uL (1.8-8.0); Basophils % 0.1 % (0-1.3); Hematocrit 40.3 % (39.6-49.0); Hemoglobin 13.1 g/dL (13.6-17.9); Lymphocytes % 9.8 % (15.3-44.8); MCH 29.7 pg (27.0-35.0); MCHC 32.6 g/dL (32.0-36.0); MCV 91.1 fL (80-100); MPV 8.5 fL (7.6-11.3); Monocytes % 3.1 % (3.3-12.3); Platelets 335 thou/uL (152-406); RBC Red Blood Cell Count 4.42 M/uL (4.33-5.43); Red Cell Distribution Width 15.1 % (12.1-15.2)
[2024-07-22 06:59] LABS: Albumin 3.1 g/dL (3.4-5.0); Albumin/Globulin Ratio 0.8 (1.1-1.8); Bilirubin Total 0.3 mg/dL (0.2-1.0); Globulin 3.7 g/dL (2.3-3.5); Protein, Total 6.8 g/dL (6.4-8.2)
[2024-07-22 07:02] LABS: Magnesium 2.2 mg/dL (1.6-2.4)
[2024-07-22 08:29] LABS: Blood Morphology Comment NOT SEEN (NOT SEEN); Platelet Estimate ADEQ; White Blood Cell Scan OK (OK)
--- NOTE | 2024-07-22 11:57 | P.PN ---
Subjective Date of Service: 07/22/24 Chief Complaint: COPD with lower respiratory tract infection, hypoxia, CKD, CHF Pt is resting comfortably in bed. He is feeling better today. The wheezing has improved. Continue iv abx. Pt will need placement in SNF in order to make sure that he completes the iv abx therapy because he failed outpt therapy. No other complaints. Review of Systems General: Unremarkable Eyes: Unremarkable ENT: Unremarkable Respiratory: Cough, Shortness of Breath Cardiovascular: Unremarkable Gastrointestinal: Unremarkable Genitourinary: Unremarkable Musculoskeletal: Unremarkable Integumentary: Unremarkable Neurological: Unremarkable Lymphatics: Unremarkable Physical Examination - Vital Signs Temperature: 96.8 F Blood Pressure: 156/77 Pulse: 63 Respirations: 16 Pulse Ox (%): 98 - Physical Exam General: Alert, In no apparent distress, Oriented x3 HEENT: Atraumatic, Normocephalic, PERRLA Neck: Supple, 2+ carotid pulse no bruit, JVD not distended Respiratory: Clear to auscultation bilaterally, Normal air movement Cardiovascular: No edema, Normal pulses, Regular rate/rhythm Capillary refill: <2 Seconds Gastrointestinal: Normal bowel sounds, Soft and benign, Non-distended Musculoskeletal: No clubbing, No swelling, No contractures Integumentary: No rashes, No breakdown, No significant lesion Neurological: Normal gait, Normal speech, Normal strength at 5/5 x4 extr, Normal tone Lymphatics: No axilla or inguinal lymphadenopathy Assessment And Plan - Plan Sepsis 2/2 HCAP: Pt was recently treated for pneumonia in [place], [place]. Will start iv vanc and merrem. F/u blood cx. lactate is 0.8. Hypokalemia: K is 5. Will monitor. Htn: Continue home med HLD: statin Hx of COPD: Continue steroid, duoneb and oxygen. Will consult Pulm Acute resp failure with hypoxia: Likely due to COPD or pna. Will also f/u V/Q scan to r/o PE. Hx of CHF: Continue home med and monitor volume status Hx of CAD: Continue home meds. Morbid obesity: Pt was advised to lose weight. DVT ppx: SCD Code: full Dispo: Pending hospital course. Pt will need SNF placement to make sure that he completes the iv abx.
[2024-07-23] MEDS: VANCOMYCIN 2 GM in NA CHLORIDE 0.9% 500 ML IVPB SCH (04:39)
[2024-07-23] MEDS ORDERED: HOME MED 1 EA UNK (Omeprazole [Omeprazole] 20 MG Capsule.Dr) PO SCH (09:00)
[2024-07-23] MEDS ORDERED: CLOPIDOGREL 75 MG TABLET PO SCH (09:00)
[2024-07-23] MEDS: HOME MED 1 EA UNK (Budesonide/Formoterol Fumarate [Symbicort 160-4.5 Mcg Inhaler] 10.2 GM IH SCH (09:00)
[2024-07-23 09:53] LABS: Absolute Lymphocytes (CBC) 2.6 K/uL (0.7-4.9); Absolute Monocytes 0.7 K/uL (0.1-1.3); Absolute Neutrophil 12.1 K/uL (1.8-8.0); Hematocrit 44.4 % (39.6-49.0); Hemoglobin 14.1 g/dL (13.6-17.9); Lymphocytes % 17.2 % (15.3-44.8); MCH 29.5 pg (27.0-35.0); MCHC 31.8 g/dL (32.0-36.0); MPV 8.9 fL (7.6-11.3); Monocytes % 4.6 % (3.3-12.3); Neutrophils % 78.2 % (41.7-73.7); Platelets 377 thou/uL (152-406); RBC Red Blood Cell Count 4.77 M/uL (4.33-5.43); Red Cell Distribution Width 15.3 % (12.1-15.2)
[2024-07-23] MEDS: carvediloL 6.25 MG TAB PO SCH (10:15)
[2024-07-23] MEDS: ASPIRIN EC 81 MG TAB PO SCH (10:15)
[2024-07-23] MEDS: NIFEDIPINE XL 30 MG TABLET PO SCH (10:15)
[2024-07-23] MEDS: allopurinoL 100 MG TAB PO SCH (10:17)
[2024-07-23] MEDS: LEVOTHYROXINE SOD 0.1 MG TAB PO SCH (10:17)
--- NOTE | 2024-07-23 11:36 | P.PN ---
Subjective Date of Service: 07/23/24 Chief Complaint: COPD with lower respiratory tract infection, hypoxia, CKD, CHF Pt is resting comfortably in bed. He was having exp wheezing when I saw him. The wheezing has improved. Continue iv abx. Pt will need placement in SNF in order to make sure that he completes the iv abx therapy because he failed outpt therapy. No other complaints. Review of Systems General: Unremarkable Eyes: Unremarkable ENT: Unremarkable Respiratory: Shortness of Breath Cardiovascular: Unremarkable Gastrointestinal: Unremarkable Genitourinary: Unremarkable Musculoskeletal: Unremarkable Integumentary: Unremarkable Neurological: Unremarkable Lymphatics: Unremarkable Physical Examination - Vital Signs Temperature: 98.3 F Blood Pressure: 183/87 Pulse: 65 Respirations: 18 Pulse Ox (%): 96 - Physical Exam General: Alert, In no apparent distress, Oriented x3 HEENT: Atraumatic, Normocephalic, PERRLA Neck: Supple, 2+ carotid pulse no bruit, JVD not distended Respiratory: Normal air movement, Expiratory wheezes Cardiovascular: No edema, Normal pulses, Regular rate/rhythm, Normal S1 S2 Capillary refill: <2 Seconds Gastrointestinal: Normal bowel sounds, Soft and benign, Non-distended Musculoskeletal: No clubbing, No swelling, No contractures Integumentary: No rashes, No breakdown, No significant lesion Neurological: Normal gait, Normal speech, Normal strength at 5/5 x4 extr Lymphatics: No axilla or inguinal lymphadenopathy Assessment And Plan - Plan Sepsis 2/2 HCAP: Pt was recently treated for pneumonia in [place], [place]. Will start iv vanc and merrem. F/u blood cx. lactate is 0.8. Hypokalemia: resolved. K is 4 <- 5. Will monitor. WHITNEY: Cri s 1.67 <- 2.15. Will avoid nephrotoxins and monitor renal function. Htn: Continue home med HLD: statin Hx of COPD: Continue steroid, duoneb and oxygen. Will consult Pulm Acute resp failure with hypoxia: Likely due to COPD or pna. Will also f/u V/Q scan to r/o PE. Hx of CHF: Continue home med and monitor volume status Hx of CAD: Continue home meds. Morbid obesity: Pt was advised to lose weight. DVT ppx: SCD Code: full Dispo: Pending hospital course. Pt will need SNF placement to make sure that he completes the iv abx.
[2024-07-23] MEDS: MONTELUKAST 10 MG TAB PO SCH (21:39)
--- NOTE | 2024-07-24 08:15 | P.PN ---
Subjective Date of Service: 07/24/24 Chief Complaint: COPD with lower respiratory tract infection, hypoxia, CKD, CHF Pt is resting comfortably in bed. The exp wheezing has improved. Continue duoneb and iv abx. Pt will need placement in SNF in order to make sure that he completes the iv abx therapy because he failed outpt therapy. No other complaints. Review of Systems General: Unremarkable Eyes: Unremarkable ENT: Unremarkable Respiratory: SOB with Excertion Cardiovascular: Unremarkable Gastrointestinal: Unremarkable Genitourinary: Unremarkable Musculoskeletal: Unremarkable Integumentary: Unremarkable Neurological: Unremarkable Lymphatics: Unremarkable Physical Examination - Vital Signs Temperature: 97.5 F Blood Pressure: 149/69 Pulse: 62 Respirations: 18 Pulse Ox (%): 95 - Physical Exam General: Alert, In no apparent distress, Oriented x3 HEENT: Atraumatic, Normocephalic, PERRLA Neck: Supple, 2+ carotid pulse no bruit Respiratory: Clear to auscultation bilaterally, Normal air movement Cardiovascular: No edema, Normal pulses, Regular rate/rhythm, Normal S1 S2 Capillary refill: <2 Seconds Gastrointestinal: Normal bowel sounds, Soft and benign, Non-distended Musculoskeletal: No clubbing, No swelling, No contractures Integumentary: No rashes, No breakdown, No significant lesion Neurological: Normal gait, Normal speech, Normal strength at 5/5 x4 extr, Normal tone, Sensation intact Lymphatics: No axilla or inguinal lymphadenopathy Assessment And Plan - Plan Sepsis 2/2 HCAP: Pt was recently treated for pneumonia in [place], [place]. Will start iv vanc and merrem. F/u blood cx. lactate is 0.8. Hypokalemia: resolved. K is 4.9<- 4 <- 5. Will monitor. WHITNEY: Cr is 1.48<- 1.67 <- 2.15. Will avoid nephrotoxins and monitor renal function. Htn: Continue home med HLD: statin Hx of COPD: Continue steroid, duoneb and oxygen. Will consult Pulm Acute resp failure with hypoxia: Likely due to COPD or pna. Will also f/u V/Q scan to r/o PE. Hx of CHF: Continue home med and monitor volume status Hx of CAD: Continue home meds. Morbid obesity: Pt was advised to lose weight. DVT ppx: SCD Code: full Dispo: Pending hospital course. Pt will need SNF placement to make sure that he completes the iv abx.
[2024-07-24 08:22] LABS: Absolute Basophils 0.1 K/uL (0-0.5); Absolute Lymphocytes (CBC) 2.8 K/uL (0.7-4.9); Absolute Monocytes 0.9 K/uL (0.1-1.3); Absolute Neutrophil 10.6 K/uL (1.8-8.0); Basophils % 0.4 % (0-1.3); Hemoglobin 13.4 g/dL (13.6-17.9); Lymphocytes % 19.4 % (15.3-44.8); MCH 29.8 pg (27.0-35.0); MCHC 32.7 g/dL (32.0-36.0); MCV 91.3 fL (80-100); MPV 8.3 fL (7.6-11.3); Monocytes % 6.6 % (3.3-12.3); Neutrophils % 73.6 % (41.7-73.7); Nucleated Red Blood Cells % 0.1 % (0-0); Platelets 324 thou/uL (152-406); RBC Red Blood Cell Count 4.49 M/uL (4.33-5.43)
[2024-07-24 08:34] LABS: Anion Gap 3.9 mEq/L (5.0-15.0); Potassium 4.9 mEq/L (3.5-5.1)
[2024-07-24 09:09] LABS: Atypical Lymphocytes 4 %; Blood Morphology Comment NOT SEEN (NOT SEEN); Differential Total Cells Count 100; Lymphocytes 15 % (15-42); Monocytes 6 % (0-10); Platelet Estimate ADEQ; Segmented Neutrophils 75 % (40-80); Smudge Cells PRESENT
[2024-07-24] MEDS: ATORVASTATIN 40 MG TAB PO SCH (21:00)
[2024-07-25 05:43] LABS: Absolute Lymphocytes (CBC) 2.3 K/uL (0.7-4.9); Absolute Monocytes 0.7 K/uL (0.1-1.3); Absolute Neutrophil 13.3 K/uL (1.8-8.0); Basophils % 0.2 % (0-1.3); Hematocrit 43.2 % (39.6-49.0); Hemoglobin 14.2 g/dL (13.6-17.9); Lymphocytes % 13.9 % (15.3-44.8); MCH 30.2 pg (27.0-35.0); MCHC 32.8 g/dL (32.0-36.0); MPV 8.4 fL (7.6-11.3); Monocytes % 4.6 % (3.3-12.3); Neutrophils % 81.3 % (41.7-73.7); Nucleated Red Blood Cells % 0.1 % (0-0); Platelets 351 thou/uL (152-406); RBC Red Blood Cell Count 4.69 M/uL (4.33-5.43); Red Cell Distribution Width 15.2 % (12.1-15.2)
[2024-07-25 06:03] LABS: Albumin 3.2 g/dL (3.4-5.0); Albumin/Globulin Ratio 0.9 (1.1-1.8); Bilirubin Total 0.2 mg/dL (0.2-1.0); Globulin 3.5 g/dL (2.3-3.5); Protein, Total 6.7 g/dL (6.4-8.2)
--- NOTE | 2024-07-25 09:07 | P.PN ---
Date of Service: 07/25/24 Subjective Reports shortness of breath with exertion,. Treated with nebs, oxygen, Failed outpatient antibiotics, Review of Systems 10 point review of system negative unless listed in HPI Physical Examination - Vital Signs Reviewed - Physical Exam General: Alert, In no apparent distress, Oriented x3 HEENT: Atraumatic, Normocephalic, PERRLA Respiratory: Expiratory wheezes, dyspnea on exertion Cardiovascular: No edema, Normal pulses, Regular rate/rhythm, Normal S1 S2 Capillary refill: <2 Seconds Gastrointestinal: Normal bowel sounds, Soft and benign, nontender Musculoskeletal: No clubbing, No swelling, No contractures Integumentary: No rashes, No breakdown, No significant lesion Neurological: Normal gait, Normal speech, Normal strength at 5/5 x4 extr, Normal tone, Sensation intact Assessment And Plan - Plan Acute hypoxic respiratory failure secondary to pneumonia improved Sepsis 2/2 HCAP: COPD exacerbation improved Leukocytosis likely secondary from steroid use Hx of COPD: Continue steroid, duoneb and oxygen. Will consult Pulm Pt was recently treated for pneumonia in [place], [place]. Will start iv vanc and merrem. F/u blood cx. lactate is 0.8. Will also f/u V/Q scan to r/o PE. Hypokalemia: Trend electrolytes replace per. WHITNEY: Cr is 1.48<- 1.67 <- 2.15. Will avoid nephrotoxins and monitor renal function. Htn: Hyperlipidemia Continue home med Hx of CHF: History of CAD Continue home med and monitor volume status Morbid obesity: Pt was advised to lose weight. DVT ppx: SCD Code: full Dispo: Pending hospital course. Time spent with patient 30-minute <Eloise Vaughn - Last Filed: 07/27/24 20:53> Chart has been reviewed. Events of the last 24 hours have been noted. Case discussed with JESSE. I performed a substantial part of the MDM during this patient's care today. I personally made or approved the documented management plan and acknowledge its risk of complications. I agree with the findings and documentation provided in the JESSE's notes Continue with nebs, steroids, and antibiotics. Weaning off of O2. Hopefully we can discharge patient home in the morning. <Steve Panda - Last Filed: 08/05/24 02:25>
[2024-07-26] MEDS: HYDRALAZINE HCL 20 MG/ML VIAL IV PRN (07:50)
--- NOTE | 2024-07-26 07:56 | P.DS ---
Admission Date: 07/19/24 Discharge Date: 07/27/24 Reason for Admission: COPD with lower respiratory tract infection, hypoxia, CKD, CHF Brief History of Present Illness: Mr. Hernandez is a 78-year-old male with history of COPD, CHF, prior NH, hypertension, hyperlipidemia, recent admission in [facility] for pneumonia now presents to the ED for recurrent symptoms, cough, hypoxia. Pt states he was taking Augmentin and Zithromax. State he has a cough productive of white sputum. Pt does have home oxygen and uses 2L regularly. Denies fever, edema, syncope. Blood cultures and lactate were drawn in the emergency department. Cefepime and vancomycin started. As patient has recent travel, recent admission, hypoxia, and history of CKD and CHF, we will admit and have a VQ scan and echo in the morning. - Physical Exam General: Alert, In no apparent distress, Oriented x3, Obese HEENT: Atraumatic, Normocephalic Neck: Supple Respiratory: Crackles/rales, Expiratory wheezes Cardiovascular: Normal pulses, Regular rate/rhythm, Other (Pressure soft) Capillary refill: <2 Seconds Gastrointestinal: Soft and benign Musculoskeletal: No clubbing Integumentary: No rashes Neurological: Normal speech, Normal tone, Normal affect Lymphatics: No axilla or inguinal lymphadenopathy Hospital Course: 78-year-old male with history of COPD, CHF, prior NH, hypertension, hyperlipidemia, recent admission in [facility] for pneumonia now presents to the ED for recurrent symptoms, cough, hypoxia. Failed outpatient treatment pt states he was taking Augmentin and Zithromax. Improved with IV antibiotics, nebulizers, steroids., Symptoms improved, plan to discharge to home health or senior living facility, tolerating diet, follow-up with primary care after discharge. Assessment Pneumonia continue p.o. antibiotics, O2 2 L keep sats greater than 90%, nebs COPD exacerbation, nebs, steroids, discharged home on antibiotics Levaquin, prednisone 20 mg p.o. twice daily for 10 days #20 Refill carvedilol, hydralazine, nifedipine, VQ scan negative for PE Echocardiogram grade 1 systolic dysfunction, normal EF Continue home medicines as previously prescribed GOAL: Clear understanding of disease process INSTRUCTIONS: Physician Discharge Instructions: -Follow-up with PCP in 1 to 2 weeks -Please call Dr. Panda at [phone] if any questions regarding hospital stay -Please call nursing station at [phone] if any nursing or medication questions -Return to the emergency room if symptoms worsen Diet: ADA, low sodium Activity: Fall precautions <Eloise Vaughn - Last Filed: 07/27/24 20:50> Admission Date: 07/19/24 Discharge Date: 07/27/24 Hospital Course: Chart has been reviewed. Events of the last 24 hours have been noted. Case discussed with JESSE. I performed a substantial part of the MDM during this patient's care today. I personally made or approved the documented management plan and acknowledge its risk of complications. I agree with the findings and documentation provided in the JESSE's notes Continue with nebs, steroids, and antibiotics. Weaning off of O2. Patient is clinically doing well. Arranging for home oxygen. Patient will follow-up with pulmonary as an outpatient. Continue with blood pressure medications at the time of discharge. <Steve Panda - Last Filed: 08/05/24 02:26> Disposition: TRANSFER TO SNF - REHAB Discharge Condition: GOOD Vital Signs/Physical Exam: Temp Pulse Resp BP Pulse Ox 97.9 F 80 18 168/85 H 96 07/26/24 04:00 07/26/24 04:00 07/26/24 04:00 07/26/24 04:00 07/26/24 04:00 Laboratory Data at Discharge: WBC 16.40 thou/uL (4.3-10.9) H 07/25/24 05:11 Hgb 14.2 g/dL (13.6-17.9) 07/25/24 05:11 Hct 43.2 % (39.6-49.0) 07/25/24 05:11 Plt Count 351 thou/uL (152-406) 07/25/24 05:11 PT 11.1 SECONDS (9.4-12.5) 07/19/24 15:40 INR 0.99 07/19/24 15:40 Sodium 134 mEq/L (136-145) L 07/25/24 05:11 Potassium 5.0 mEq/L (3.5-5.1) 07/25/24 05:11 BUN 42 mg/dL (7-18) H 07/25/24 05:11 Creatinine 1.68 mg/dL (0.70-1.30) H 07/25/24 05:11 Glucose 227 mg/dL (74-106) H 07/25/24 05:11 Magnesium 2.2 mg/dL (1.6-2.4) 07/22/24 05:31 Total Bilirubin 0.2 mg/dL (0.2-1.0) 07/25/24 05:11 AST 17 U/L (15-37) 07/25/24 05:11 ALT 34 U/L (16-61) 07/25/24 05:11 Alkaline Phosphatase 83 U/L (45-117) 07/25/24 05:11 Triglycerides 120 mg/dL (<150) 07/20/24 05:45 Cholesterol 155 mg/dL (<200) 07/20/24 05:45 HDL Cholesterol 38 mg/dL (40-60) L 07/20/24 05:45 Cholesterol/HDL Ratio 4.08 07/20/24 05:45 <Eloise Vaughn - Last Filed: 07/27/24 20:50> Vital Signs/Physical Exam: Temp Pulse Resp BP Pulse Ox 97.4 F 60 14 161/78 H 92 07/27/24 12:00 07/27/24 12:00 07/27/24 12:00 07/27/24 12:00 07/27/24 12:00 Laboratory Data at Discharge: WBC 18.20 thou/uL (4.3-10.9) H 07/27/24 11:13 Hgb 14.5 g/dL (13.6-17.9) 07/27/24 11:13 Hct 45.6 % (39.6-49.0) 07/27/24 11:13 Plt Count 362 thou/uL (152-406) 07/27/24 11:13 PT 11.1 SECONDS (9.4-12.5) 07/19/24 15:40 INR 0.99 07/19/24 15:40 Sodium 135 mEq/L (136-145) L 07/27/24 11:13 Potassium 5.3 mEq/L (3.5-5.1) H 07/27/24 11:13 BUN 47 mg/dL (7-18) H 07/27/24 11:13 Creatinine 1.44 mg/dL (0.70-1.30) H 07/27/24 11:13 Glucose 130 mg/dL (74-106) H 07/27/24 11:13 Magnesium 2.2 mg/dL (1.6-2.4) 07/22/24 05:31 Total Bilirubin 0.2 mg/dL (0.2-1.0) 07/25/24 05:11 AST 17 U/L (15-37) 07/25/24 05:11 ALT 34 U/L (16-61) 07/25/24 05:11 Alkaline Phosphatase 83 U/L (45-117) 07/25/24 05:11 Triglycerides 120 mg/dL (<150) 07/20/24 05:45 Cholesterol 155 mg/dL (<200) 07/20/24 05:45 HDL Cholesterol 38 mg/dL (40-60) L 07/20/24 05:45 Cholesterol/HDL Ratio 4.08 07/20/24 05:45 <Steve Panda - Last Filed: 08/05/24 02:26> Time spent managing pt's care (in minutes): 55 <Eloise Vaughn - Last Filed: 07/27/24 20:50> <Steve Panda - Last Filed: 08/05/24 02:26> Home Medications: Aspirin [Aspirin EC 81 MG] 81 mg PO DAILY 03/13/17 Atorvastatin Calcium 20 mg PO DAILY 03/13/17 Clopidogrel Bisulfate [Plavix] 75 mg PO DAILY 03/13/17 Levothyroxine [Synthroid*] 100 mcg PO DAILY 03/13/17 Albuterol Sulfate [Proair Digihaler] 2 puff IH Q6H PRN 07/21/24 Allopurinol 100 mg PO DAILY 07/21/24 Azelastine HCl [Astepro] 1 spray NS BID 07/21/24 Brimonidine Tartrate/Timolol [Brimonidine-Timolol 0.2%-0.5%] 1 drop OPTH Q8H Budesonide/Formoterol Fumarate [Symbicort 160-4.5 Mcg Inhaler] 2 puff IH DAILY 07/21/24 Empagliflozin [Jardiance] 10 mg PO DAILY 07/21/24 Fluticasone Propionate [Flonase Allergy Relief] 2 inh NS BID 07/21/24 Montelukast [Singulair*] 1 tab PO BEDTIME 07/21/24 Omeprazole 20 mg PO DAILY 07/21/24 Albuterol Inhaler [Ventolin Inhaler*] 2 puff IH Q4H PRN 07/27/24 Albuterol Neb [Proventil 0.083% Neb Soln] 2.5 mg NEB [id number] PRN amp 07/27/24 Clopidogrel Bisulfate [Plavix*] 75 mg PO DAILY 07/27/24 Hydralazine HCl 10 mg PO TID #90 tab 07/27/24 Mometasone/Formoterol [Dulera 100 Mcg/5 Mcg Inhaler] 2 puff IH BID inhaler 07/27/24 Nifedipine [Nifedipine ER] 60 mg PO DAILY #30 tab 07/27/24 Tiotropium [Spiriva Handihaler*] 1 sprays IH DAILY inhaler 07/27/24 carvediloL [Carvedilol] 1 tab PO BID #60 07/27/24 levoFLOXacin [Levaquin] 500 mg PO DAILY #5 tab 07/27/24 predniSONE [Deltasone] 20 mg PO BID #20 tab 07/27/24 New Medications: carvediloL [Carvedilol] 1 tab PO BID #60 Hydralazine HCl 10 mg PO TID #90 tab levoFLOXacin [Levaquin] 500 mg PO DAILY #5 tab Nifedipine [Nifedipine ER] 60 mg PO DAILY #30 tab predniSONE [Deltasone] 20 mg PO BID #20 tab Physician Discharge Instructions: Home Health: [facility] ([facility]) P:[phone] F:[phone] 78-year-old male with history of COPD, CHF, prior NH, hypertension, hyperlipidemia, recent admission in [facility] for pneumonia now presents to the ED for recurrent symptoms, cough, hypoxia. Failed outpatient treatment pt states he was taking Augmentin and Zithromax. Improved with IV antibiotics, nebulizers, steroids., Symptoms improved, plan to discharge to home health or senior living facility, tolerating diet, follow-up with primary care after discharge. Patient will discharge on oral Levaquin. Tapering dose of prednisone. Blood pressure has been elevated so we will get better blood pressure control prior to discharge. At this time, patient is stable for discharge home. Assessment Pneumonia continue p.o. antibiotics, O2 2 L keep sats greater than 90%, nebs COPD exacerbation, nebs, steroids, discharged home on antibiotics, inhalers, travon roid, as needed nebs VQ scan negative for PE Echocardiogram grade 1 systolic dysfunction, normal EF Continue home medicines as previously prescribed GOAL: Clear understanding of disease process INSTRUCTIONS: Physician Discharge Instructions: -Follow-up with PCP in 1 to 2 weeks -Follow-up with Pulmonary in 1-2 weeks -Follow-up with cardiology in 2 weeks -Please call Dr. Panda at [phone] if any questions regarding hospital stay -Please call nursing station at [phone] if any nursing or medication questions -Return to the emergency room if symptoms worsen Diet: ADA, low sodium Activity: Fall precautions Followup: Pedro Luis Matt MD [ACTIVE - CAN ADMIT] - 1-2 Weeks Lucio Baez MD [ACTIVE - CAN ADMIT] - 1-2 Weeks Emma Nunez NP [Primary Care Provider] - 1-2 Weeks
[2024-07-26] MEDS ORDERED: ALBUTEROL 2.5 MG/3 ML NEB SOL NEB PRN (08:54)
[2024-07-26 09:26] VITALS: O2SAT 93
[2024-07-26] MEDS: ALBUTEROL INHALER 200 PUFF/6.7 GM IH PRN (16:55)
[2024-07-27] MEDS: VANCOMYCIN 1.5 GM in NA CHLORIDE 0.9% 500 ML IVPB SCH (05:50)
[2024-07-27 11:27] LABS: Absolute Lymphocytes (CBC) 1.9 K/uL (0.7-4.9); Absolute Monocytes 1.1 K/uL (0.1-1.3); Absolute Neutrophil 15.2 K/uL (1.8-8.0); Basophils % 0.1 % (0-1.3); Eosinophils % 0.1 % (0-4.4); Hematocrit 45.6 % (39.6-49.0); Hemoglobin 14.5 g/dL (13.6-17.9); Lymphocytes % 10.6 % (15.3-44.8); MCH 29.3 pg (27.0-35.0); MCHC 31.8 g/dL (32.0-36.0); MCV 92.1 fL (80-100); MPV 8.5 fL (7.6-11.3); Monocytes % 6.1 % (3.3-12.3); Neutrophils % 83.1 % (41.7-73.7); Nucleated Red Blood Cells % 0.1 % (0-0); Platelets 362 thou/uL (152-406); RBC Red Blood Cell Count 4.95 M/uL (4.33-5.43); Red Cell Distribution Width 14.9 % (12.1-15.2)
[2024-07-27 11:37] LABS: Anion Gap 9.3 mEq/L (5.0-15.0); Potassium 5.3 mEq/L (3.5-5.1)
[2024-07-27 11:58] LABS: SARS-CoV-2 Antigen CONTROL BLUE LINE VIS/BG OK; SARS-CoV-2 Antigen Rapid Res Negative (Negative)
[2024-07-27 12:47] VITALS: BP 161/78; TEMP 97.4
[2024-07-27 13:03] LABS: Differential Total Cells Count 100
[2024-07-27 13:04] LABS: Band Neutrophils 2 % (0-1); Blood Morphology Comment NOT SEEN (NOT SEEN); Lymphocytes 13 % (15-42); Metamyelocytes 1 % (0-0); Monocytes 6 % (0-10); Myelocytes 2 % (0-0); Platelet Estimate ADEQ; Segmented Neutrophils 76 % (40-80)
--- NOTE | 2024-07-27 20:58 | P.PN ---
Date of Service: 07/26/24 Subjective Shortness of breath improving Review of Systems 10 point review of system negative unless listed in HPI Physical Examination - Vital Signs Reviewed - Physical Exam General: Alert, In no apparent distress, Oriented x3 HEENT: Atraumatic, Normocephalic, PERRLA Respiratory: Expiratory wheezes, unlabored Cardiovascular: No edema, Normal pulses, Regular rate/rhythm, Normal S1 S2 Capillary refill: <2 Seconds Gastrointestinal: Normal bowel sounds, Soft and benign, nontender Musculoskeletal: No clubbing, No swelling, generalized weakness Integumentary: No rashes, No breakdown, No significant lesion Neurological: Normal gait, Normal speech, Normal strength at 5/5 x4 extr, Assessment And Plan - Plan Acute hypoxic respiratory failure secondary to pneumonia improving Sepsis 2/2 HCAP: COPD exacerbation improved Leukocytosis likely secondary from steroid use Hx of COPD: Continue steroid, duoneb and oxygen. Will consult Pulm Pt was recently treated for pneumonia in [place], [place]. Will start iv vanc and merrem. F/u blood cx. lactate is 0.8. Will also f/u V/Q scan to r/o PE. Hypokalemia: Trend electrolytes replace per. WHITNEY: Cr is 1.48<- 1.67 <- 2.15. Will avoid nephrotoxins and monitor renal function. Htn: Hyperlipidemia Continue home med Hx of CHF: History of CAD Continue home med and monitor volume status Morbid obesity: Pt was advised to lose weight. DVT ppx: SCD Code: full Dispo: Pending hospital course. Time spent with patient 30-minute <Eloise Vaughn - Last Filed: 07/27/24 20:58> Chart has been reviewed. Events of the last 24 hours have been noted. Case discussed with JESSE. I performed a substantial part of the MDM during this patient's care today. I personally made or approved the documented management plan and acknowledge its risk of complications. I agree with the findings and documentation provided in the JESSE's notes Continue with nebs, steroids, and antibiotics. Weaning off of O2. Hopefully we can discharge patient home in the morning. <Steve Panda - Last Filed: 08/05/24 02:25>
== END 2024-07-27 15:15 | DRG 871 ==
LOC: ER 15:10 → ERHOLD 18:29 → 4TH 21:40
PROVIDERS: ADMIT Hospitalist; ATTEND Hospitalist
PROC: 02HV33Z Insertion of Infusion Device into Superior Vena Cava, Percutaneous Approach (ICD-10-PCS; principal; 2024-07-21)
DX: A41.9 Sepsis, unspecified organism (principal); I50.33 Acute on chronic diastolic (congestive) heart failure; J96.01 Acute respiratory failure with hypoxia; J18.9 Pneumonia, unspecified organism; I13.0 Hypertensive heart and chronic kidney disease with heart failure and stage 1 through stage 4 chronic kidney disease, or unspecified chronic kidney disease; J44.0 Chronic obstructive pulmonary disease with (acute) lower respiratory infection; J44.1 Chronic obstructive pulmonary disease with (acute) exacerbation; N17.9 Acute kidney failure, unspecified; R65.20 Severe sepsis without septic shock; N18.30 Chronic kidney disease, stage 3 unspecified; E87.6 Hypokalemia; E78.5 Hyperlipidemia, unspecified; E66.01 Morbid (severe) obesity due to excess calories; I25.2 Old myocardial infarction; Z95.5 Presence of coronary angioplasty implant and graft; Z79.82 Long term (current) use of aspirin; Z99.81 Dependence on supplemental oxygen; Z68.36 Body mass index [BMI] 36.0-36.9, adult; Z11.52 Encounter for screening for COVID-19; Z79.52 Long term (current) use of systemic steroids; Z79.02 Long term (current) use of antithrombotics/antiplatelets; Z28.310 Unvaccinated for COVID-19; Z79.899 Other long term (current) drug therapy; Z79.890 Hormone replacement therapy; Z96.659 Presence of unspecified artificial knee joint; Y95 Nosocomial condition
CPT/HCPCS: 36415; 78582; 80048; 80053; 80061; 80076; 80202; 83605; 83735; 83880; 84145; 84439; 84443; 84484; 85025; 85610; 87040; 87070; 87205; 87811; 93005; 93306; 94640; 94760; 94762; 97116; 97161; 99285; A9540; A9558; J0360; J0692; J1644; J2185; J2470; J2919; J3535; J7030; J7040; J7050; J7613; J7644